=== PATIENT | male | born 1965 | race Caucasian/White ===

== ENCOUNTER 2022-07-02 15:45 | Emergency (ER) | payer SELFPAY ==
--- OUTSIDE RECORDS SUMMARY | 2022-07-02 15:54 | XMS REPORT | Continuity of Care Document ---
:1965 Author Organization [facility] t Address [address] [place] [address] [address] [place] [address] Care Team Providers Name Role Phone ANGY MANSFIELD Primary Care Physician Unavailable CHRISTIAN MONTES Attending Clinician Unavailable Stefany Hoyt Attending Clinician Unavailable SHAHANA MONTANO Attending Clinician Unavailable LEROY RAMACHANDRAN Attending Clinician Unavailable WILLIAM BERNSTEIN Attending Clinician Unavailable RENE LEPE Attending Clinician Unavailable GARETT JUAN Attending Clinician Unavailable CESIA ESCAMILLA Attending Clinician Unavailable BERTRAND BAUMANN Attending Clinician Unavailable LEWIS BERNSTEIN Attending Clinician Unavailable VLADIMIR GOODWIN Attending Clinician Unavailable FARIDA CASTILLO Attending Clinician Unavailable KAREN AGUILLON Attending Clinician Unavailable CARLO BRADSHAW Attending Clinician Unavailable ANGY MANSFIELD Attending Clinician Unavailable CARLI IBARRA Attending Clinician Unavailable BEINGNO MANSFIELD Attending Clinician Unavailable Jessica Anthony Attending Clinician Unavailable Jen Martinez Attending Clinician Unavailable LUCIEN PERDUE Attending Clinician Unavailable ANDREW MCCAULEY Attending Clinician Unavailable MASON KOHLI Attending Clinician Unavailable VIJI HARPER Attending Clinician Unavailable RICHARD FARMER Attending Clinician Unavailable KELBY FARRIS Attending Clinician Unavailable EGBULEFU, PEACE U Attending Clinician Unavailable ZACHARIAH MILTON Attending Clinician Unavailable PATIENCE BATEMAN Attending Clinician Unavailable ALBERT TODD Attending Clinician Unavailable Stefany Hoyt Admitting Clinician Unavailable EDITH SÁNCHEZ Admitting Clinician Unavailable LEWIS BERNSTEIN Admitting Clinician Unavailable Jessica Anthony Admitting Clinician Unavailable Referred, Self Admitting Clinician Unavailable Payers Payer Name Policy Type Policy Number Effective Date Expiration Date S ource Problems This patient has no known problems. Allergies, Adverse Reactions, Alerts Allergy Allergy Status Severity Reaction(s) Onset Inactive Treating Comm ents Source Name Type Date Date Clinician No Known DA Active U [facility] 06-25 [facility] 00:00: [address] Medications This patient has no known medications. Procedures Procedure Date / Time Performed Performing Clinician [facility] jama [id number] 2022-06-19 00:00:[address] [facility] Encounters Start End Encounter Admission Attending Care Care Encounter Source Date/Time Date/Time Type Type Clinicians Facility Department ID 2022-07-11 Inpatient SIMON [facility] [id number] [place] 00:00:00 [facility] 2022-06-18 Emergency [facility] [id number] K[place] - 13:56:59 [facility]22-[facility]-[address] [facility] [id number] H arr[place] 10:27:11 [facility] 2022-05-[address] [facility] [id number] H arr[place] 15:37:06 [facility] 2022-05-29 Emergency [facility] [id number] KATHY - 22:48:10 [facility] 2022-05-06 Emergency [facility] [id number] KATHY - 22:29:24 [facility] 2022-04-29 Emergency [facility] [id number] KATHY - 12:36:43 [facility] 2022-04-27 Emergency [facility] [id number] KATHY - 02:30:55 [facility] 2022-04-22 Emergency [facility] [id number] KATHY - 15:47:47 [facility] 2022-03-14 Emergency [facility] [id number] KATHY - 01:25:19 [facility] 2022-03-11 Emergency [facility] [id number] KATHY - 20:16:44 [facility] 2022-03-08 Emergency [facility] [id number] KATHY - 21:42:06 [facility] 2022-07-13 2022-07-[address] [facility] [id number] [place] 00:00:00 00:00:00 Health 2022-07-06 2022-07-[address] [facility] [id number] [place] 00:00:00 00:00:00 Health 2022-07-06 2022-07-[address] [facility] [id number] [place] 00:00:00 00:00:00 [facility] 2022-06-19 2022-06-30 Inpatient EM Lai, IBANWU INTE.02 [id number] [facility] 02:05:00 16:28:00 Stefany 24 [facility] 2022-06-29 2022-06-[address] [facility] [id number] [place] 00:00:00 00:00:00 [facility] 2022-06-22 2022-06-[address] [facility] [id number] [place] 00:00:00 00:00:00 [facility] 2022-06-18 2022-06-19 Emergency 1 [facility] [id number] [place] 13:18:00 00:56:00 Greg PARKER [facility] SHAHANA 2022-06-19 2022-06-[address] [facility] [id number] [place] 00:00:00 00:00:00 [facility] 2022-06-19 2022-06-19 [facility] [id number] [place] 00:00:00 00:00:00 PRIANKA [facility] 2022-06-18 2022-06-18 [facility] [id number] [place] 15:04:[facility]54[facility]22-06[facility] [facility] [id number] [place] 15:11:48 15:36:36 Health 2022-06-18 2022-06-[address] [facility] [id number] [place] 13:46:12 13:49:47 Health 2022-06-18 2022-06-[address] [facility] [id number] [place] 13:35:53 13:46:02 Health 2022-06-15 2022-06-15 Outpatient ROBERTH, [facility] [id number] [place] 10:53:05 15:43:00 [facility] 2022-06-13 2022-06-13 Inpatient DRAKE, [facility] [id number] [place] 08:05:12 09:51:[facility] 2022-06-11 Outpatient ANDI, [facility] [id number] [place] 00:00:00 00:00:00 [facility] 2022-06-08 2022-06-08 Outpatient IBIS, [facility] [id number] [place] 08:38:33 23:59:00 [facility] 2022-05-31 2022-06-05 Inpatient 1 [facility] [id number] [place] 19:37:00 19:02:[facility] 2022-06-[address] [facility] [id number] [place] 00:00:00 00:00:00 [facility] 2022-05-30 2022-05-31 [facility] [id number] [place] 02:09:00 17:30:00 LEWIS [facility] 2022-05-30 2022-05-[address] [facility] [id number] [place] 17:08:50 17:46:28 [facility] 2022-05-30 2022-05-30 [facility] [id number] [place] 00:00:00 00:00:00 [facility] 2022-05-24 2022-05-24 Outpatient FARIDA CASTILLO [facility] [id number] [place] 10:29:29 13:29:00 [facility] 2022-05-21 2022-05-[address] [facility] [id number] [place] 00:00:00 00:00:00 [facility] 2022-05-21 2022-05-21 Outpatient [facility] [id number] [place] 00:00:00 [facility] 2022[facility]05[facility]17 [facility] [id number] [place] 13:32:21 23:59:00 [facility] 2022-05-11 2022-05-11 [facility] [id number] [place] 09:51:06 13:46:00 SHAHAstria [facility] 2022-05-11 2022-05-11 Outpatient [facility] [id number] [place] 00:00:00 00:00:00 ANGY Garza [facility] 2022-05-07 2022-05-07 [facility] [id number] [place] 10:32:00 12:43:00 [facility] 2022-05-01 [facility] [id number] [place] 00:13:00 03:37:00 [facility] 2022-04-29 2022-04-29 Emergency [facility] [id number] [place] 14:59:00 16:14:00 [facility] 2022-04-27 2022-04-27 [facility] [id number] [facility] 00:02:00 12:30:00 Jessica 15 [facility] 2022-04-27 2022-04-27 Outpatient Michelle [facility] G00 [id number] [facility] 06:25:00 06:25:[address] 2022-04-27 2022-04-27 Outpatient [facility] [id number] [place] 00:00:00 00:00:00 ANGY Garza [facility] 2022-04-22 2022-04-22 Emergency [facility] [id number] [place] 17:04:00 17:22:00 [facility]-17 2022-04-17 Outpatient LEENAN, [facility] [id number] [place] 06:51:20 11:45:00 [facility] 2022-04-17 2022-04-17 [facility] [id number] [place] 00:00:00 00:00:[address] [facility] 2022-04-13 2022-04-13 Outpatient [facility] [id number] [place] 00:00:00 00:00:00 ANGY Raya [facility] 2022-03-30 2022-03-30 Outpatient DONAL, [facility] [id number] [place] 09:11:54 23:59:00 ANGY Raya [facility] 2022-03-20 2022-03-20 Outpatient DONAL, [facility] [id number] [place] 00:00:00 00:00:00 ANGY Raya [facility] 2022-03-16 2022-03-16 Outpatient ROBERTH, [facility] [id number] [place] 10:23:24 13:32:00 [facility] 2022-03-14 2022-03-14 Emergency [facility] [id number] [place] 03:21:00 06:46:00 [place] 2022-03-14 2022-03-14 Outpatient [facility] [id number] [place] 00:00:00 [facility]:00[facility] 2022-03-12 2022-03-[address] [facility] [id number] [place] 05:16:15 23:59:00 Health 2022-03-11 2022-03-12 Emergency [facility] [id number] [place] 21:52:00 04:44:[facility] 2022-[facility]-12 2022-03-[address] [facility] [id number] [place] 00:00:00 00:00:00 [facility] 2022-03-11 2022-03-11 [facility] [id number] [place] 23:33:52 23:52:08 [facility] 2022-03-08 2022-03-09 Emergency [facility] [id number] [place] 21:42:00 00:27:00 [facility] 2022-03-08 2022-03-[address] [facility] [id number] [place] 22:11:08 22:31:59 [facility] 2022-03-06 2022-03-06 Outpatient [facility] [id number] [place] 00:00:00 15:45:00 ANGY Garza [facility] 2022-03-06 2022-03-06 Emergency [facility] [id number] [place] 11:52:00 12:00:00 [facility] 2022-03-01 2022-03-01 Outpatient [facility] [id number] [place] 08:58:34 10:35:00 ANGY Garza [facility] 2022-02-27 2022-02-27 Emergency [facility] [id number] [place] 10:08:00 15:57:[facility] 2022-02-21 Outpatient 3 [facility] [id number] [place] 08:10:54 08:14:05 [facility] 2022-02-21 Outpatient EGBULUIS [facility] [id number] [place] 00:00:00 00:00:00 [facility] 2022-02-20 2022-02-[address] [facility] [id number] [place] 00:00:00 00:00:00 [facility] 2022-02-16 2022-02-16 Outpatient [facility] [id number] [place] [address] 10:22:02 11:34:55 ANGY Garza [facility] 2020-10-20 2020-10-[address] [facility] [id number] [place] 00:00:00 00:00:00 [facility] 2020-10-07 2020-10-[address] [facility] [id number] [place] 00:00:00 00:00:00 [facility] 2020-09-06 2020-09-06 [facility] [id number] [place] 12:40:23 13:48:28 ZACHARIAHMITCHEL [facility] 2020-09-06 2020-09-06 [facility] [id number] [place] 13:41:53 13:45:37 [facility] 2020-09-06 2020-09-06 [facility] [id number] [place] 00:00:00 00:00:00 [facility] 2020-07-26 2020-07-26 [facility] [id number] [place] 00:00:00 00:00:00 ZACHARIAHMITCHEL [facility] 2020-04-26 2020-04-26 [facility] [id number] [place] 07:58:41 23:59:00 [place] Results Test Description Test Time Test Comments Results Result Comments Source GLUCOSE BEDSIDE TESTING 2022-06-30 07:44:00 Test Item Value Reference Range Interpretation Comme nts GLUCOSE BEDSIDE TESTING (test code = GLUBED) 125 MG/DL 60-99 H - PARACENTESIS W [id number] 15:47:00 [facility] 1965 Sex: M Patient Name: CHARLES JUAREZ Unit No: [id number] EXAMS: CPT CODE: [id number] PARACENTESIS W IMAGE 97507 B2 Ultrasound-guided paracentesis CLINICAL INDICATION: Ascites MEDICATIONS: 10 mL subcutaneous Lidocaine 2% CLINICAL DATA SPECIALIST: Hamilton Dominique M.D. TECHNIQUE: Transverse real time images were obtained through the abdomen. B-mode grayscale, color Doppler, and spectral Doppler images are obtained. The risks and benefits of this procedure were discussed and informed written consent was obtained prior to performing the procedure. The abdomen was then prepped and draped in usual sterile fashion. Limited ultrasound of the abdomen was performed. Under ultrasound guidance, a 5 Ethiopian centesis needle was advanced into the peritoneal fluid collection and catheter advanced into the collection over the needle, and needlewas removed. The catheter was connected to Vacutainer bottles and 3000 mL of bloody fluid was removed. There were no immediate complications of the procedure. No significant blood loss. Patient tolerated procedure well. FINDINGS: Moderate volume free peritoneal fluid demonstrated on ultrasound. IMPRESSION: Successful ultrasound guided paracentesis. 3000 mL of fluid was removed. at 1547 Reported and signed by: Hamilton Dominique MD CC: Samuel Ibrahim MD; Stefany Hoyt MD Technologist: Ela Joyner RDMS() Transcrpt Date/Tm/Trnsp: 06/28/2022(1547) [email or web address] Orig Print D/T: S: 06/28/2022 (4640) [facility] NAME: CHARLES JUAREZ [id number] [place] PHYS: [place] [address] : 1965 AGE: 56 SEX: M LOC: Z.363 A PHONE #: [phone] EXAM DATE: 06/28/2022 STATUS: ADM IN FAX #: [phone] RADIOLOGY NO: PAGE 1 Signed ReportPROTHROMBIN [id number] 13:54:00 Test Item Value Reference Range Interpretation Comments PROTHROMBIN TIME 16.8 SECONDS 9.4-12.7 H PATIENT (test code = PTP) INTERNATIONAL NORMAL 1.5 0.86-1.14 H The INR is to be RATIO (test code = used only for INR) monitoring oral anticoagulantth erap y. INDICATION I NR VALUE ---- ---- ---- -------1. Prophylaxis, de ep venous thrombos is, including high risk surgery. 2.0 - 3.0 2. Prophylaxis, deep venous thrombosis, hip surgery, treatm ent for deep venous thrombosis or pulmonary prevention of systemic emboli sm in patients wit h valvular heart disease, atrial fibrillation, tissue heart va lve, or acute myocar dial infarction. 2.0 - 3.0 3. Manager Bak[employer] al prosthesis hear t valves, recurre nt systemic emboli sm. 3.0 - 4.5 [id number] 13:49:00 Test Item Value Reference Range Interpretation Comments AMMONIA (test code = AMM) 40 mcMOL/L 9-30 H - PARACENTESIS W [id number] 12:49:00 [facility] 1965 Sex: M Patient Name: CHARLES JUAREZ Unit No: [id number] EXAMS: CPT CODE: [id number] PARACENTESIS W IMAGE 11188 B2 Ultrasound-guided paracentesis CLINICAL INDICATION: Ascites MEDICATIONS: 10 mL subcutaneous Lidocaine 2% CLINICAL DATA SPECIALIST: Hamilton Dominique M.D. TECHNIQUE: Transverse real time images were obtained through the abdomen. B-mode grayscale, color Doppler, and spectral Doppler images are obtained. The risks and benefits of this procedure were discussed and informed written consent was obtained prior to performing the procedure. The abdomen was then prepped and draped in usual sterile fashion. Limited ultrasound of the abdomen was performed. Under ultrasound guidance, a 5 Ethiopian centesis needle was advanced into the peritoneal fluid collection and catheter advanced into the collection over the needle, and needle was removed. The catheter was connected to Vacutainer bottles and 5300 mL fluid was removed. There were no immediate complications of the procedure. No significant blood loss. Patient tolerated procedure well. FINDINGS: Large volume free peritoneal fluid demonstrated on ultrasound. IMPRESSION: Successful ultrasound guided paracentesis. 5300 mL of fluid was removed. at 1249 Reported and signed by: Hamilton Dominique MD CC: Samuel Ibrahim MD; Stefany Hoyt MD Technologist: Ela Joyner RDMS() Transcrpt Date/Tm/Trnsp: 06/26/2022 (7710) [email or web address] Orig Print D/T: S: 06/26/2022 (6878) [facility] NAME: CHARLES JUAREZ [address] [place] PHYS: Samuel Zuluaga MD [address] [address] : 1965 AGE: 56 SEX: M LOC:Z.363 A PHONE #: [phone] EXAM DATE: 06/26/2022 STATUS: ADM IN FAX #: [phone] RADIOLOGY NO: PAGE 1 Signed Report- XR CHEST [id number] 11:39:00 [facility] 1965 Sex: M Patient Name: CHARLES JUAREZ Unit No: [id number] EXAMS: CPT CODE: [id number] XR CHEST 1V 94684 B2 TIME OFSTUDY: 06/26/2022 9:35 AM REASON FOR EXAM: cough w/ green sputum COMPARISON: June 20 FINDINGS: AP view of the chest was obtained. Support devices: Interval removal of ET tube, enteric tube, and left arm PICC. Lungs: Normal lung volume. No mass, or consolidation. Normal pulmonary vascularity. Pleura: No pleural effusion or pneumothorax. Heart and Mediastinum: Normal cardiomediastinal silhouette and calcific atherosclerosis. Bones: Normal regional skeletal structures. IMPRESSION: 1. No acute cardiopulmonary process. at 1139 Reported and signed by: Hamilton Dominique MD CC: Samuel Irbahim MD; Stefany Hoyt MD Technologist: IVONE Joseph, RT(R) Transcrpt Date/Tm/Trnsp: 06/26/2022 (1139) [email or web address] Orig Print D/T: S: 06/26/2022 (1148) [facility] NAME: CHARLES JUAREZ [address] [place] PHYS: Samuel Charles MD [address] [place] [address] : 1965 AGE: 56 SEX: M LOC: Z.363 A PHONE #: [phone] EXAM DATE:06/26/2022 STATUS: ADM IN FAX #: [phone] RADIOLOGY NO: PAGE 1 Signed ReportGLUCOSE BEDSIDE [id number] 07:34:00 Test Item Value Reference Range Interpretation Comments GLUCOSE BEDSIDE TESTING (test code = 75 MG/DL 60-99 N GLUBED) COMPREHENSIVE METABOLIC [id number] 06:43:00 Test Item Value Reference Range Interpretation Comments SODIUM (test code 126 MMOL/L 137-145 L = NA) POTASSIUM (test 4.4 MMOL/L 3.5-5.1 N code = K) CHLORIDE (test 101 MMOL/L 98-107 N code = CL) CARBON DIOXIDE 20 MMOL/L 22-30 L (test code = CO2) ANION GAP (test 9 MMOL/L 14-24 L code = GAP) GLUCOSE (test 82 MG/DL 74-106 N code = GLU) BLOOD UREA 38 MG/DL 9-20 H NITROGEN (test code = BUN) GLOMERULAR > 60 The Glomerular Filtration FILTRATION RATE Rate is a ca lculated (test code = GFR) parameterb ased on serum Creatinine, pat ient age and sex. GFR values less than 60 mL/min/1.73 squ are meters are indicative ofChronic Kidney Disease. Values less than 15 mL/min/ 1.73square meters indicate Kidney failure. The ca lculation forGFR is based on the CKD-EPI (2020) calculation. This formulais race indifferent and is the recommended for surjit for GFRby the N[facility]erly [facility] for Adults.The GFR will not ca lculate if the sex is unkn own or if thepatient's ag e is <18 years. CREATININE (test 1.20 MG/DL 0.66-1.25 N code = CREAT) TOTAL PROTEIN 6.7 G/DL 6.2-7.6 N [facility] Clinical Diagnostic (test code = has made us vlad re of PROT) newinformation regarding the potential i nterference ofEltrombopag ( a bone marrow stimulan t used to treatthrombocyt onmenia and aplastic anemia ) with specific assays on the Vitros 5600 of which Total Protein is one of thoseassays per formed in our lab.Interfe rence testing perform ed at Ortho determined that Eltrombopag does interfere with Vitros Total Protein asfollowsEltrom bopag Interference fo r Vitros Product Total Protein:======= Eltrombopag Max Observed Av g. BiasConcentrati on Concentration Concentration== ==== 2.5 mg/dl 6.0 g/dl +0.41 +0.34 3.5 mg/dl 6.0 g /dl +0.50 +0.45 5 mg/dl 6 .0 g/dl +0.73 +0.65 2.5 mg/dl 8.0 g/dl +0.44 +0.4 1 3.5 mg/dl 8.0 g/dl +0.55 +0.52 5 mg/dl 8.0 g/dl +0.86 +0.77 ALBUMIN (test 3.0 G/DL 3.5-5.0 L code = ALB) CALCIUM (test 8.3 MG/DL 8.4-10.2 L code = CA) BILIRUBIN TOTAL 4.3 MG/DL 0.2-1.3 H Eltrombopag Interference (test code = for Vitros Prod uct TBil, BILT) BuBc: Assa y Eltrombopag [place]/ Max Observed Avg. B ias Concentration C oncentration Concentration== ====TBil 7mg/dl TBil/ 1. 2mg/dl +0.23mg.dl +0.2 0mg/dlBuBc 3.5mg/dl Bu/0.8 mg/dl +0.25mg/dl +0.2 4mg/dlBuBc 7 mg/dl Bu/14.2mg /dl +0.38mg/dl +0.2 5mg/dlBuBc 5mg/dl Bc/0mg/d l +0.25mg/dl +0.15mg/dlBuBc 3.5mg/dl Bc/2.8mg/dl +0. 25mg/dl +0.23mg/dl SGOT/AST (test 236 UNITS/L 17-59 H code = AST) SGPT/ALT (test 76 UNITS/L 0-49 H code = ALT) ALKALINE 138 UNITS/L 38-126 H PHOSPHATASE (test code = ALKP) GLUCOSE BEDSIDE [id number] 20:23:00 Test Item Value Reference Range Interpretation Comments GLUCOSE BEDSIDE TESTING (test code 132 MG/DL 60-99 H = GLUBED) CBC W/AUTO [id number] 09:51:00 Test Item Value Reference Range Interpretation Comments WHITE BLOOD CELL (test code = 5.6 K/MM3 3.8-9.8 N WBC) RED BLOOD CELL (test code = 3.33 M/MM3 3.95-5.67 L RBC) HEMOGLOBIN (test code = HGB) 10.1 G/DL 12.4-16.7 L HEMATOCRIT (test code = HCT) 29.4 % 35.9-49.5 L MEAN CELL VOLUME (test code = 88 fL 81.7-96.1 N MCV) MEAN CELL HGB (test code = MCH) 30.3 pg 27.6-33.2 N MEAN CELL HGB CONCETRATION 34.4 % 32.9-35.5 N (test code = MCHC) RED CELL DISTRIBUTION WIDTH 21.7 % 12.1-15.2 H (test code = RDW) PLATELET COUNT (test code = 65 K/MM3 129-368 L PLT) MEAN PLATELET VOLUME (test code 10.5 fl 7.4-10.4 H = MPV) NEUTROPHIL % (test code = NT%) 69.8 % 43-75 N IMMATURE GRANULOCYTE % (test 2.7 % 0.0-2.0 H code = IG%) LYMPHOCYTE % (test code = LY%) 9.4 % 14-44 L MONOCYTE % (test code = MO%) 12.2 % 4-13 N EOSINOPHIL % (test code = EO%) 5.2 % 0-6 N BASOPHIL % (test code = BA%) 0.7 % 0-2 N NUCLEATED RBC % (test code = 0.0 % 0-1.0 N NRBC%) NEUTROPHIL # (test code = NT#) 3.88 K/mm3 2.0-7.6 N IMMATURE GRANULOCYTE # (test 0.15 x10 3/uL 0-0.03 H code = IG#) LYMPHOCYTE # (test code = LY#) 0.52 K/mm3 1.0-3.8 L MONOCYTE # (test code = MO#) 0.68 K/mm3 0.1-0.8 N EOSINOPHIL # (test code = EO#) 0.29 K/mm3 0.0-0.2 H BASOPHIL # (test code = BA#) 0.04 K/mm3 0.0-0.2 N NUCLEATED RBC # (test code = 0.00 K/mm3 0.0-0.1 N NRBC#) DIFFERENTIAL [id number] 09:51:00 Test Item Value Reference Range Interpretation Comments RBC MORPHOLOGY REQUIRED (test code ABNORMAL = RBCM) PLATELET ESTIMATE (test code = DECREASED ADEQUATE PLTEST) PLATELET MORPHOLOGY (test code = NORMAL NORMAL PLTMORPH) POIKILOCYTOSIS (test code = POIK) FEW NONE ANISOCYTOSIS (test code = ANISO) MODERATE NONE TARGET CELLS (test code = TGT) FEW NONE [id number] 05:42:00 Test Item Value Reference Range Interpretation Comments AMMONIA (test code = AMM) 72 mcMOL/L 9-30 H COMPREHENSIVE METABOLIC [id number] 05:39:00 Test Item Value Reference Range Interpretation Comments SODIUM (test code 132 MMOL/L 137-145 L = NA) POTASSIUM (test 4.1 MMOL/L 3.5-5.1 N code = K) CHLORIDE (test 101 MMOL/L 98-107 N code = CL) CARBON DIOXIDE 26 MMOL/L 22-30 (test code = CO2) ANION GAP (test 9 MMOL/L 14-24 L code = GAP) GLUCOSE (test 85 MG/DL 74-106 code = GLU) BLOOD UREA 30 MG/DL 9-20 H NITROGEN (test code = BUN) GLOMERULAR > 60 The Glomerular Filtration FILTRATION RATE Rate is a ca lculated (test code = GFR) parameterb ased on serum Creatinine, pat ient age and sex. GFR values less than 60 mL/min/1.73 squ are meters are indicative ofChronic Kidney Disease. Values less than 15 mL/min/ 1.73square meters indicate Kidney failure. The ca lculation forGFR is based on the CKD-EPI (202) calculation. This formulais race indifferent and is the recommended for surjit for GFRby the [facility] Ad[facility].The GFR will not ca lculate if the sex is unkn own or if thepatient's ag e is <18 years. CREATININE (test 1.00 MG/DL 0.66-1.25 N code = CREAT) TOTAL PROTEIN 6.7 G/DL 6.2-7.6 N [facility] Clinical Diagnostic (test code = has made us vlad re of PROT) newinformation regarding the potential i nterference ofEltrombopag ( a bone marrow stimulan t used to treatthrombocyt onmenia and aplastic anemia ) with specific assays on the Vitros 5600 of which Total Protein is one of thoseassays per formed in our lab.Interfe rence testing perform ed at Ortho determined that Eltrombopag does interfere with Vitros Total Protein asfollowsEltrom bopag Interference fo r Vitros Product Total Protein:======= Eltrombopag Max Observed A vg. BiasConcentrati on Concentration Concentration== ==== 2.5 mg/dl 6.0 g/dl +0.41 +0.34 3.5 mg/dl 6.0 g /dl +0.50 +0.45 5 mg/dl 6 .0 g/dl +0.73 +0.65 2.5 mg/dl 8.0 g/dl +0.44 +0.4 1 3.5 mg/dl 8.0 g/dl +0.55 +0.52 5 mg/dl 8.0 g/dl +0.86 +0.77 ALBUMIN (test 3.0 G/DL 3.5-5.0 L code = ALB) CALCIUM (test 8.8 MG/DL 8.4-10.2 N code = CA) BILIRUBIN TOTAL 3.0 MG/DL 0.2-1.3 H Eltrombopag Interference (test code = for Vitros Prod uct TBil, BILT) BuBc: Assa y Eltrombopag [place]/ Max Observed Avg. B ias Concentration C oncentration Concentration== ====TBil 7mg/dl TBil/ 1. 2mg/dl +0.23mg.dl +0.2 0mg/dlBuBc 3.5mg/dl Bu/0. 8mg/dl +0.25mg/dl +0.2 4mg/dlBuBc 7 mg/dl Bu/14.2mg /dl +0.38mg/dl +0.2 5mg/dlBuBc 5mg/dl Bc/0mg/d l +0.25mg/dl +0.15mg/dlBuBc 3.5mg/dl Bc/2.8mg/dl +0. 25mg/dl +0.23mg/dl SGOT/AST (test 228 UNITS/L 17-59 H code = AST) SGPT/ALT (test 76 UNITS/L 0-49 H code = ALT) ALKALINE 128 UNITS/L 38-126 H PHOSPHATASE (test code = ALKP) CBC W/AUTO [id number] 08:37:00 Test Item Value Reference Range Interpretation Comments WHITE BLOOD CELL (test 4.1 K/MM3 3.8-9.8 N code = WBC) RED BLOOD CELL (test 2.91 M/MM3 3.95-5.67 L code = RBC) HEMOGLOBIN (test code 8.7 G/DL 12.4-16.7 L = HGB) HEMATOCRIT (test code 25.7 % 35.9-49.5 L = HCT) MEAN CELL VOLUME (test 88 fL 81.7-96.1 N code = MCV) MEAN CELL HGB (test 29.9 pg 27.6-33.2 N code = MCH) MEAN CELL HGB 33.9 % 32.9-35.5 N CONCETRATION (test code = MCHC) RED CELL DISTRIBUTION 21.6 % 12.1-15.2 H WIDTH (test code = RDW) PLATELET COUNT (test 48 K/MM3 129-368 LL CALLED TO AIRWIN V code = PLT) & READBACK ON 06/24/22 AT 064 1 BY Dyunco,Chest er MEAN PLATELET VOLUME 10.5 fl 7.4-10.4 H (test code = MPV) NEUTROPHIL % (test 64.8 % 43-75 N code = NT%) IMMATURE GRANULOCYTE % 2.9 % 0.0-2.0 H (test code = IG%) LYMPHOCYTE % (test 12.9 % 14-44 L code = LY%) MONOCYTE % (test code 13.1 % 4-13 H = MO%) EOSINOPHIL % (test 5.6 % 0-6 N code = EO%) BASOPHIL % (test code 0.7 % 0-2 N = BA%) NUCLEATED RBC % (test 0.0 % 0-1.0 N code = NRBC%) NEUTROPHIL # (test 2.66 K/mm3 2.0-7.6 N code = NT#) IMMATURE GRANULOCYTE # 0.12 x10 3/uL 0-0.03 H (test code = IG#) LYMPHOCYTE # (test 0.53 K/mm3 1.0-3.8 L code = LY#) MONOCYTE # (test code 0.54 K/mm3 0.1-0.8 N = MO#) EOSINOPHIL # (test 0.23 K/mm3 0.0-0.2 H code = EO#) BASOPHIL # (test code 0.03 K/mm3 0.0-0.2 N = BA#) NUCLEATED RBC # (test 0.00 K/mm3 0.0-0.1 N code = NRBC#) DIFFERENTIAL [id number] 08:37:00 Test Item Value Reference Range Interpretation Comments RBC MORPHOLOGY REQUIRED ABNORMAL (test code = RBCM) PLATELET ESTIMATE (test code MARKED DECREASED ADEQUATE = PLTEST) PLATELET MORPHOLOGY (test NORMAL NORMAL code = PLTMORPH) POIKILOCYTOSIS (test code = MODERATE NONE POIK) ANISOCYTOSIS (test code = MODERATE NONE ANISO) MACROCYTOSIS (test code = MODERATE NONE MACR) TARGET CELLS (test code = FEW NONE TGT) ACANTHOCYTES (test code = FEW NONE ACAN) COMPREHENSIVE METABOLIC [id number] 06:30:00 Test Item Value Reference Range Interpretation Comments SODIUM (test code 135 MMOL/L 137-145 L = NA) POTASSIUM (test 3.7 MMOL/L 3.5-5.1 N code = K) CHLORIDE (test 107 MMOL/L 98-107 N code = CL) CARBON DIOXIDE 23 MMOL/L 22-30 N (test code = CO2) ANION GAP (test 9 MMOL/L 14-24 L code = GAP) GLUCOSE (test 103 MG/DL 74-106 N code = GLU) BLOOD UREA 31 MG/DL 9-20 H NITROGEN (test code = BUN) GLOMERULAR > 60 The Glomerular Filtration FILTRATION RATE Rate is a ca lculated (test code = GFR) parameterb ased on serum Creatinine, pat ient age and sex. GFR values less than 60 mL/min/1.73 squ are meters are indicative ofChronic Kidney Disease. Values less than 15 mL/min/ 1.73square meters indicate Kidney failure. The ca lculation forGFR is based on the CKD-EPI (2020) calculation. This formulais race indifferent and is the recommended for surjit for GFRby the [facility] for Adults.The GFR will not ca lculate if the sex is unkn own or if thepatient's ag e is <18 years. CREATININE (test 1.00 MG/DL 0.66-1.25 N code = CREAT) TOTAL PROTEIN 6.3 G/DL 6.2-7.6 N [facility] Clinical Diagnostic (test code = has made us vlad re of PROT) newinformation regarding the potential i nterference ofEltrombopag ( a bone marrow stimulan t used to treatthrombocyt onmenia and aplastic anemia ) with specific assays on the Vitros 5600 of which Total Protein is one of thoseassays per formed in our lab.Interfe rence testing perform ed at Ortho determined that Eltrombopag does interfere with Vitros Total Protein asfollowsEltrom bopag Interference fo r Vitros Product Total Protein:======= Eltrombopag Max Observed Av g. BiasConcentrati on Concentration Concentration== ==== 2.5 mg/dl 6.0 g/dl +0.41 +0.34 3.5 mg/dl 6.0 g /dl +0.50 +0.45 5 mg/dl 6 .0 g/dl +0.73 +0.65 2.5 mg/dl 8.0 g/dl +0.44 +0. 41 3.5 mg/dl 8.0 g/dl +0.55 +0.52 5 mg/dl 8.0 g/dl +0.86 +0.77 ALBUMIN (test 3.0 G/DL 3.5-5.0 L code = ALB) CALCIUM (test 8.9 MG/DL 8.4-10.2 N code = CA) BILIRUBIN TOTAL 3.5 MG/DL 0.2-1.3 H Eltrombopag Interference (test code = for Vitros Prod uct TBil, BILT) BuBc: Assa y Eltrombopag [place]/ Max Observed Avg. B ias Concentration C oncentration Concentration== ====TBil 7mg/dl TBil/ 1. 2mg/dl +0.23mg.dl +0.2 0mg/dlBuBc 3.5mg/dl Bu/0.8 mg/dl +0.25mg/dl +0.2 4mg/dlBuBc 7 mg/dl Bu/14.2mg /dl +0.38mg/dl +0.2 5mg/dlBuBc 5mg/dl Bc/0mg/d l +0.25mg/dl +0.15mg/dlBuBc 3.5mg/dl Bc/2.8mg/dl +0. 25mg/dl +0.23mg/dl SGOT/AST (test 199 UNITS/L 17-59 H code = AST) SGPT/ALT (test 72 UNITS/L 0-49 H code = ALT) ALKALINE 115 UNITS/L 38-126 N PHOSPHATASE (test code = ALKP) [id number] 06:26:00 Test Item Value Reference Range Interpretation Comments AMMONIA (test code = AMM) 44 mcMOL/L 9-30 H CBC W/AUTO [id number] 10:13:00 Test Item Value Reference Range Interpretation Comments WHITE BLOOD CELL (test code = 4.2 K/MM3 3.8-9.8 N WBC) RED BLOOD CELL (test code = 3.00 M/MM3 3.95-5.67 L RBC) HEMOGLOBIN (test code = HGB) 8.9 G/DL 12.4-16.7 L HEMATOCRIT (test code = HCT) 26.4 % 35.9-49.5 L MEAN CELL VOLUME (test code = 88 fL 81.7-96.1 N MCV) MEAN CELL HGB (test code = MCH) 29.7 pg 27.6-33.2 N MEAN CELL HGB CONCETRATION 33.7 % 32.9-35.5 N (test code = MCHC) RED CELL DISTRIBUTION WIDTH 21.4 % 12.1-15.2 H (test code = RDW) PLATELET COUNT (test code = 52 K/MM3 129-368 L PLT) MEAN PLATELET VOLUME (test code 10.8 fl 7.4-10.4 H = MPV) NEUTROPHIL % (test code = NT%) 70.5 % 43-75 N IMMATURE GRANULOCYTE % (test 2.1 % 0.0-2.0 H code = IG%) LYMPHOCYTE % (test code = LY%) 11.8 % 14-44 L MONOCYTE % (test code = MO%) 11.8 % 4-13 N EOSINOPHIL % (test code = EO%) 3.3 % 0-6 N BASOPHIL % (test code = BA%) 0.5 % 0-2 N NUCLEATED RBC % (test code = 0.0 % 0-1.0 N NRBC%) NEUTROPHIL # (test code = NT#) 2.98 K/mm3 2.0-7.6 N IMMATURE GRANULOCYTE # (test 0.09 x10 3/uL 0-0.03 H code = IG#) LYMPHOCYTE # (test code = LY#) 0.50 K/mm3 1.0-3.8 L MONOCYTE # (test code = MO#) 0.50 K/mm3 0.1-0.8 N EOSINOPHIL # (test code = EO#) 0.14 K/mm3 0.0-0.2 N BASOPHIL # (test code = BA#) 0.02 K/mm3 0.0-0.2 N NUCLEATED RBC # (test code = 0.00 K/mm3 0.0-0.1 N NRBC#) DIFFERENTIAL [id number] 10:13:00 Test Item Value Reference Range Interpretation Comments RBC MORPHOLOGY REQUIRED (test code ABNORMAL = RBCM) PLATELET ESTIMATE (test code = DECREASED ADEQUATE PLTEST) PLATELET MORPHOLOGY (test code = NORMAL NORMAL PLTMORPH) ANISOCYTOSIS (test code = ANISO) MODERATE NONE COMPREHENSIVE METABOLIC [id number] 07:48:00 Test Item Value Reference Range Interpretation Comments SODIUM (test code 141 MMOL/L 137-145 N = NA) POTASSIUM (test 4.1 MMOL/L 3.5-5.1 N code = K) CHLORIDE (test 113 MMOL/L 98-107 H code = CL) CARBON DIOXIDE 22 MMOL/L 22-30 N (test code = CO2) GLUCOSE (test 112 MG/DL 74-106 H code = GLU) BLOOD UREA 35 MG/DL 9-20 H NITROGEN (test code = BUN) GLOMERULAR > 60 The Glomerular Filtration FILTRATION RATE Rate is a ca lculated (test code = GFR) parameterb ased on serum Creatinine, pat ient age and sex. GFR values less than 60 mL/min/1.73 squ are meters are indicative ofChronic Kidney Disease. Values less than 15 mL/min/ 1.73square meters indicate Kidney failure. The ca lculation forGFR is based on the CKD-EPI (202) calculation. This formulais race indifferent and is the recommended for surjit for GFRby the [facility] for Ad[facility].The GFR will not ca lculate if the sex is unkn own or if thepatient's ag e is <18 years. CREATININE (test 1.10 MG/DL 0.66-1.25 N code = CREAT) TOTAL PROTEIN 6.6 G/DL 6.2-7.6 N [facility]o Clinical Diagnostic (test code = has made us vlad re of PROT) newinformation regarding the potential i nterference ofEltrombopag ( a bone marrow stimulan t used to treatthrombocyt onmenia and aplastic anemia ) with specific assays on the Spiracurs 5600 of which Total Protein is one of thoseassays per formed in our lab.Interfe rence testing perform ed at Ortho determined that Eltrombopag does interfere with Vitros Total Protein asfollowsEltrom bopag Interference fo r Vitros Product Total Protein:======= Eltrombopag Max Observed Av g. BiasConcentrati on Concentration Concentration== ==== 2.5 mg/dl 6.0 g/dl +0.41 +0.34 3.5 mg/dl 6.0 g /dl +0.50 +0.45 5 mg/dl 6 .0 g/dl +0.73 +0.65 2.5 mg/dl 8.0 g/dl +0.44 +0.4 1 3.5 mg/dl 8.0 g/dl +0.55 +0.52 5 mg/dl 8.0 g/dl +0.86 +0.77 ALBUMIN (test 3.2 G/DL 3.5-5.0 L code = ALB) CALCIUM (test 9.3 MG/DL 8.4-10.2 N code = CA) BILIRUBIN TOTAL 4.5 MG/DL 0.2-1.3 H Eltrombopag Interference (test code = for Vitros Prod uct TBil, BILT) BuBc: Assa y Eltrombopag [place]/ Max Observed Avg. B ias Concentration C oncentration Concentration== ====TBil 7mg/dl TBil/ 1. 2mg/dl +0.23mg.dl +0.2 0mg/dlBuBc 3.5mg/dl Bu/0.8 mg/dl +0.25mg/dl +0.2 4mg/dlBuBc 7 mg/dl Bu/14.2mg /dl +0.38mg/dl +0.2 5mg/dlBuBc 5mg/dl Bc/0mg/d l +0.25mg/dl +0.15mg/dlBuBc 3.5mg/dl Bc/2.8mg/dl +0. 25mg/dl +0.23mg/dl SGOT/AST (test 210 UNITS/L 17-59 H code = AST) SGPT/ALT (test 75 UNITS/L 0-49 H code = ALT) ALKALINE 118 UNITS/L 38-126 N PHOSPHATASE (test code = ALKP) [id number] 07:48:00 Test Item Value Reference Range Interpretation Comments PHOSPHOROUS (test code = PHOS) 2.4 MG/DL 2.5-4.5 L [id number] 07:48:00 Test Item Value Reference Range Interpretation Comments MAGNESIUM (test code = MAG) 2.1 MG/DL 1.6-2.3 N - PARACENTESIS W [id number] 16:00:00 [facility] 1965 Sex: M Patient Name: CHARLES JUAREZ Unit No: [id number] EXAMS: CPT CODE: [id number] PARACENTESIS W IMAGE [id number] EXAMINATION: IMAGE-GUIDED PARACENTESIS. LOCATION: B2. HISTORY: Ascites. SEDATION: The patient did notrequire conscious sedation for the procedure. ANTIBIOTICS: None. Not indicated. CONTRAST: None. TECHNIQUE: The risks, benefits, and alternatives were discussed and informed consent was obtained. Prior to beginning the procedure, [place] Protocol was used to confirm the patient's identity and plannedprocedure. Sterile barriers including cap, mask, hand hygiene, sterile gloves, sterile drape and cutaneous antisepsis were used. The patient's abdomen was examined with ultrasound and a suitable pocketof ascitic fluid in the right lower quadrant was identified. The overlying skin was anesthetized with lidocaine. Using real-time ultrasound guidance, a One-Step needle was advanced into the ascitic fluid. Approximately 3,100 mL of serosanguineous fluid was drained. Samples were sent for lab analysis. At the conclusion of the procedure, the catheter was removed and a sterile dressing applied to the site. ESTIMATED BLOOD LOSS: Less than 30 milliliters. COMPLICATIONS: None. DISCHARGED TO: Performed atbedside in ICU. FINDINGS: Ultrasound demonstrated a moderate amount of ascitic fluid. IMPRESSION: Suc cessful image-guided paracentesis. complaint operator: Zayda Nicholas PA-C. at 1600 Reported and signed by: Tala Welch MD [facility] NAME: CHARLES JUAREZ [id number] PHYS: Samuel Charles MD [address] [place] [address] : 1965 AGE: 56 SEX: M LOC: Z.I14 A PHONE #: [phone] EXAM DATE: 06/22/2022 STATUS: ADM IN FAX #: [phone] RADIOLOGY NO: PAGE 1 Signed Report (CONTINUED) Patient Name: CHARLES JUAREZ Unit No: [id number] EXAMS: CPT CODE: [id number] PARACENTESIS W IMAGE [id number] (Continued) CC: Samuel Ibrahim MD; Ethan Cerda MD Technologist: Rehana Becker (RDMS AB OB) Transcrpt Date/Tm/Trnsp: 06/22/2022 (1600) [id number] Orig Print D/T: S: 06/22/2022 (1603) [facility] NAME: CHARLES JUAREZ [id number] [address] PHYS: Samuel Charles MD [address] [place] [address] : 1965 AGE: 56 SEX: MACCT NO: [id number] LOC: Z.I14 A PHONE #: [phone] EXAM DATE: 06/22/2022 STATUS: ADM IN FAX #: [phone] RADIOLOGY NO: PAGE 2 Signed ReportHEPARIN INDUCED [id number] 13:39:00 Test Item Value Reference Range Interpretation Comments HEPARIN INDUCED NEGATIVE See_Comment The HIT (PF4 ) test is a AB (test code = qualitative, fully automated HITAB) lateximmunoassa y that detects, IgG, I gM and IgA associatedantib odies and is used as a prima ry screening assay for thede tection of Platelet Factor 4 Heparin-Depende nt Antibodies.Posi tive or negative is the final interpreted res ult. Thepositive or negative result should b e used with otherinformatio n, including the clinical co ntext, in forming adiagno sis such as the 4T score an d the 2013 [employer] guidelines. NEG ATIVE results indicate the ab sence of Platelet Factor 4Heparin-Depend ent Antibodies to IgG, IgM or IgA. A negativeresult for anti-PF4 heparin antibod ies can support theclin ical decision to exclude the presence of HIT, andtherefo re continue heparin treatme nt. POSITIVE results indicat e the presence of Platelet Fac tor 4Heparin-Depend ent Antibodies to IgG, IgM or IgA. Although apositive resul t obtained using this assa y may indicate thepresence of heparin-associa jose manuel antibodies, a p ositive resultDOES NOT CONFIRM the diagnosis of HI T. Confirmation wi th afunctional test is recomme nded. A clinical reasse smentsupported by laboratory d benjie should be performed befor econfirmation or exclusion of the diagnosis. Some patientsmay have naturally occurring antibodies to P F4. If clinically nithin cated, a repeat study is recommended in2-3 days afte r the patient has been off he naomy for at least4 hours. [ Automated message] The sy stem which generated this result transmitted ref erence range: (). The referen ce range was not used to int erpret this result as janelle l/abnormal. CBC W/AUTO [id number] 12:58:00 Test Item Value Reference Range Interpretation Comments WHITE BLOOD CELL (test code = 5.9 K/MM3 3.8-9.8 N WBC) RED BLOOD CELL (test code = 3.10 M/MM3 3.95-5.67 L RBC) HEMOGLOBIN (test code = HGB) 9.3 G/DL 12.4-16.7 L HEMATOCRIT (test code = HCT) 26.8 % 35.9-49.5 L MEAN CELL VOLUME (test code = 87 fL 81.7-96.1 N MCV) MEAN CELL HGB (test code = MCH) 30.0 pg 27.6-33.2 N MEAN CELL HGB CONCETRATION 34.7 % 32.9-35.5 N (test code = MCHC) RED CELL DISTRIBUTION WIDTH 21.0 % 12.1-15.2 H (test code = RDW) PLATELET COUNT (test code = 61 K/MM3 129-368 L PLT) MEAN PLATELET VOLUME (test code 10.1 fl 7.4-10.4 N = MPV) NEUTROPHIL % (test code = NT%) 80.8 % 43-75 H IMMATURE GRANULOCYTE % (test 1.0 % 0.0-2.0 N code = IG%) LYMPHOCYTE % (test code = LY%) 7.1 % 14-44 L MONOCYTE % (test code = MO%) 9.6 % 4-13 N EOSINOPHIL % (test code = EO%) 1.0 % 0-6 N BASOPHIL % (test code = BA%) 0.5 % 0-2 N NUCLEATED RBC % (test code = 0.0 % 0-1.0 N NRBC%) NEUTROPHIL # (test code = NT#) 4.78 K/mm3 2.0-7.6 N IMMATURE GRANULOCYTE # (test 0.06 x10 3/uL 0-0.03 H code = IG#) LYMPHOCYTE # (test code = LY#) 0.42 K/mm3 1.0-3.8 L MONOCYTE # (test code = MO#) 0.57 K/mm3 0.1-0.8 N EOSINOPHIL # (test code = EO#) 0.06 K/mm3 0.0-0.2 N BASOPHIL # (test code = BA#) 0.03 K/mm3 0.0-0.2 N NUCLEATED RBC # (test code = 0.00 K/mm3 0.0-0.1 N NRBC#) DIFFERENTIAL [id number] 12:58:00 Test Item Value Reference Range Interpretation Comments RBC MORPHOLOGY REQUIRED (test code ABNORMAL = RBCM) PLATELET ESTIMATE (test code = DECREASED ADEQUATE PLTEST) PLATELET MORPHOLOGY (test code = NORMAL NORMAL PLTMORPH) ANISOCYTOSIS (test code = ANISO) MODERATE NONE GLUCOSE BEDSIDE [id number] 11:32:00 Test Item Value Reference Range Interpretation Comments GLUCOSE BEDSIDE TESTING (test code = 92 MG/DL 60-99 N GLUBED) COMPREHENSIVE METABOLIC [id number] 07:18:00 Test Item Value Reference Range Interpretation Comments SODIUM (test code 140 MMOL/L 137-145 N = NA) POTASSIUM (test 4.5 MMOL/L 3.5-5.1 N code = K) CHLORIDE (test 111 MMOL/L 98-107 H code = CL) CARBON DIOXIDE 23 MMOL/L 22-30 N (test code = CO2) GLUCOSE (test 91 MG/DL 74-106 N code = GLU) BLOOD UREA 34 MG/DL 9-20 H NITROGEN (test code = BUN) GLOMERULAR > 60 The Glomerular Filtration FILTRATION RATE Rate is a ca lculated (test code = GFR) parameterb ased on serum Creatinine, pat ient age and sex. GFR values less than 60 mL/min/1.73 squ are meters are indicative ofChronic Kidney Disease. Values less than 15 mL/min/ 1.73square meters indicate Kidney failure. The ca lculation forGFR is based on the CKD-EPI (202) calculation. This formulais race indifferent and is the recommended for surjit for GFRby the [facility] Foundation for Adults.The GFR will not ca lculate if the sex is unkn own or if thepatient's ag e is <18 years. CREATININE (test 1.20 MG/DL 0.66-1.25 N code = CREAT) TOTAL PROTEIN 6.5 G/DL 6.2-7.6 N Ortho Clinical Diagnostic (test code = has made us vlad re of PROT) newinformation regarding the potential i nterference ofEltrombopag ( a bone marrow stimulan t used to treatthrombocyt onmenia and aplastic anemia ) with specific assays on the Vitros 5600 of which Total Protein is one of thoseassays per formed in our lab.Interfe rence testing perform ed at Ortho determined that Eltrombopag does interfere with Vitros Total Protein asfollowsEltrom bopag Interference fo r Vitros Product Total Protein:======= Eltrombopag Max Observed Av g. BiasConcentrati on Concentration Concentration== ==== 2.5 mg/dl 6.0 g/dl +0.41 +0.34 3.5 mg/dl 6.0 g /dl +0.50 +0.45 5 mg/dl 6 .0 g/dl +0.73 +0.65 2. 5 mg/dl 8.0 g/dl +0.44 +0.4 1 3.5 mg/dl 8.0 g/dl +0.55 +0.52 5 mg/dl 8.0 g/dl +0.86 +0.77 ALBUMIN (test 3.1 G/DL 3.5-5.0 L code = ALB) CALCIUM (test 9.4 MG/DL 8.4-10.2 N code = CA) BILIRUBIN TOTAL 5.7 MG/DL 0.2-1.3 H Eltrombopag Interference (test code = for Vitros Prod uct TBil, BILT) BuBc: Assa y Eltrombopag [place]/ Max Observed Avg. B ias Concentration C oncentration Concentration== ====TBil 7mg/dl TBil/ 1. 2mg/dl +0.23mg.dl +0.2 0mg/dlBuBc 3.5mg/dl Bu/0.8 mg/dl +0.25mg/dl +0.2 4mg/dlBuBc 7 mg/dl Bu/14.2mg /dl +0.38mg/dl +0.2 5mg/dlBuBc 5mg/dl Bc/0mg/d l +0.25mg/dl +0.15mg/dlBuBc 3.5mg/dl Bc/2.8mg/dl +0. 25mg/dl +0.23mg/dl SGOT/AST (test 226 UNITS/L 17-59 H code = AST) SGPT/ALT (test 79 UNITS/L 0-49 H code = ALT) ALKALINE 117 UNITS/L 38-126 N PHOSPHATASE (test code = ALKP) [id number] 07:18:00 Test Item Value Reference Range Interpretation Comments MAGNESIUM (test code = MAG) 2.0 MG/DL 1.6-2.3 N HGB [id number] 05:56:00 Test Item Value Reference Range Interpretation Comments HEMOGLOBIN (test code = HGB) 9.3 G/DL 12.4-16.7 L HEMATOCRIT (test code = HCT) 26.7 % 35.9-49.5 L GLUCOSE BEDSIDE [id number] 20:00:00 Test Item Value Reference Range Interpretation Comments GLUCOSE BEDSIDE TESTING 107 MG/DL 60-99 H Noti fied Nurse~ (test code = GLUBED) CYTOLOGY NON [id number] 16:59:00 Test Item Value Reference Range Interpretation Comments CYTOLOGY NON RELIABILITY TECHNOLOGIST (test code = CR) R UN DATE: 06/27/22 [facility] PAGE 1 RUN TIME: 1129 Specimen Inquiry RUN USER: INTERFACE P ATIENT: CHARLES JUAREZ LOC: JENNIFERRolan U #: [id number] AGE/SX: 56/M ROOM: [facility] RE06/19/22REG DR: Stefany Hoyt MD : 65 BED: A DIS: STATUS: ADM IN TLOC: SPEC #: [id number] RECD: 06/19/22 STATUS: RICARDO BABIN #: [id number] RACHEL: 06/19/22- [facility] DR: Ethan Cerda MD ENTERED: 06/19/22-153 SP TYPE: CYTO NGYN OTHR DR: No Primary or Family Physician Self Referred Rosenda Foley MD R2 Yoselin eBaver MD R3 Samuel Ibrahim MD R1 Leif Wilson Poyan MDORDERED: [id number], 86663, ANATOMIC SPEC, SPECIMEN TRACK COPIES TO: No Primary or Family Physician Self Referred Rosenda Foley MD R2 [address] [place] [address] Yoselin Beaver MD R3 [address] [place] [address] Samuel Ibrahim MD R1 [address] [place] [address] Leif Wilson DO [address] [place] [address] [email or web address] Tala Welch MD [address] [facility] [address] [place] [address] [place] [address] [facility] [address] [place] [address] PROCEDURES: 76000 (06/21/22-1299) 61266 (06/21/22) CONTINUED ON NEXT PAGE R UN DATE: 06/27/22 [facility] PAGE 2 RUN TIME: 1129 Specimen Inquiry RUN USER: INTERFACE S [facility] #: 23:SCOTT:[id number] PATIENT: CHARLES JUAREZ #[id number] (Continued) SPECIMEN TRACK (06/19/22) TISSUES: A. PARACENTESIS FLUID - PARACENTESIS ADDENDUM FINDINGS Addendum #1 Entered: 06/27/22 The additional requested cell block is also insufficient for further analysis. No change in original diagnosis. Addendum Signed SIGNATURE ON FILE Santiago Burden 06/27/22 1129 FINAL DIAGNOSIS Peritoneal fluid, paracentesis, cytology and cell block:- RARE ATYPICAL CELLS PRESENT, suspicious- Mesothelial cells, mild, some reactive- Lymphocytes, small and mature, very rare- Macrophages, very rare- Proteinaceous/bloody background Comment: The current cell block is insufficient for further immunohistochemical analysis.A new cell block is requested to obtain more cells for evaluation; an addendum report willfollow. Suggest clinical and radiologic correlation. GROSS DESCRIPTION Paracenteses. It consists of 1300 cc of bloody cloudy fluid. It is submitted forcytologic preparation. Thin prep: 1 Cell block: 1 Technical tissue processing and slide [facility] [address] , [place] [address] Unless gross only, the diagnosis is based upon microscopic examination. Immunohistochemistry: This test was developed and its performance characteristicsdetermined by this laboratory. It has not been approved nor does it need approval by the USFDA. Appropriate positive and negative controls are reviewed and judged to be acceptable. This laboratory is certified under the Clinical Laboratory Improvement Amendments (CLIA-88)as qualified to perform high complexity clinical laboratory testing. CONTINUED ON NEXT PAGE R UN DATE: 06/27/22 [place] - LAB PAGE 3 RUN TIME: 1129 Specimen Inquiry RUN USER: INTERFACE S [facility] #: 23:SCOTT:[id number] PATIENT: CHARLES JUAREZ #[id number] (Continued) MICROSCOPIC DESCRIPTION Microscopic examination is performed on all specimens and the findings are incorporatedinto the final diagnosis. Please see diagnosis for the findings. CLINICAL INFORMATION Ascites; history of cirrhosis and possible hepatocarcinoma. Signed SIGNATURE ON Santiago Tian 06/21/22 1659 END OF REPORT - CT ABD PELVIS W/O [id number] 15:50:00 [facility] 1965 Sex: M Patient Name: CHARLES JUAREZ Unit No: [id number] EXAMS: CPT CODE: [id number] CT ABD PELVIS W/O CONT 49814 EXAMINATION: - CT ABD PELVIS W/O CONT. LOCATION: B2. HISTORY: r/o abdominal bleed. COMPARISON: CT abdomen and pelvis dated 04/27/2022. TECHNIQUE: CT abdomen and pelvis was performed without the use of IV contrast. Sagittal and coronal reconstructed images were available for review. This exam was performed according to our departmental dose-optimization program, which includes automated exposure control, adjustment of the mA and/or kV according to patient size, and/or use of iterative reconstruction technique. Unless otherwise specified, incidental findings do not require dedicated imaging follow-up. FINDINGS: Lower chest: Mild dependent subsegmental atelectasis is seen in bilateral lower lobes. Heart size is normal. Circumferential distal esophageal wall thickening is seen. Abdomen and pelvis: There is nodularity of the liver contour. Multiple hypodense lesions are seen in the liver measuring up to 3.5 cm, increased in size since prior exam (previously measuring 1.6 cm). Focal hyperdense material is seen adjacent to one of the lesions at the hepatic dome and is likely secondary to prior locoregional therapy. There is recanalization of the umbilical vein. Small gastroesophageal varices are present. Layering sludge and stones are seen in the gallbladder. The spleen is enlarged, measuring 18.5cm in length. The noncontrast appearance of the pancreas, bilateral adrenal glands, and bilateral kidneys is within normal limits. The urinary bladder is decompressed by Haddad catheter and contains air. There is no adenopathy. Large amount of ascites is seen with small amount of layering blood products in the pelvis. There is no evidence of bowel obstruction. The appendix is normal in size and contains air. There is no pneumoperitoneum. Severe degenerative changes are seen at L5/S1. No acute osseous abnormality is identified. IMPRESSION: Large amount ascites with small amount of layering blood products in the pelvis. Imaging findings of cirrhosis and portal hypertension with splenomegaly and small gastroesophageal varices. [facility] NAME: CHARLES JUAREZ [address] [place] PHYS: Samuel Charles MD [address] [address] : 1965 AGE: 56 SEX: M LOC: Z.I14 A PHONE#: [phone] EXAM DATE: 06/21/2022 STATUS: ADM IN FAX #: [phone] RAD #: D/C DT PAGE 1 Signed Report (CONTINUED) Patient Name: CHARLES JUAREZ Unit No: [id number] EXAMS: CPT CODE: [id number] CT ABD PELVIS W/O CONT 99102 (Continued) Multiple hypodense lesions throughout the liver measuring upto 3.5 cm, increased in size since prior exam and likely secondary to multifocal HCC. Cholelithiasis. Other findings as described. at 1550 Reported and signed by: Tala Welch MD CC: Samuel Ibrahim MD; Ethan Cerda MD Technologist: Lilia (RT); Dorothy Aly, CTDI: DLP: Trnscrpt: 06/21/2022 (1550) EderPR7 [facility] NAME: LONA JUAREZ [id number] [address] PHYS: Samuel Charles MD [address] [place] [id number] : 1965 AGE: 56 SEX: M LOC: Z.I14 A PHONE #: [phone] EXAM DATE: 06/21/2022 STATUS: ADM IN FAX #: [phone] RAD #: D/C DT PAGE 2 Signed Report Patient Name: CHARLES JUAREZ Unit No: [id number] EXAMS: CPT CODE: [id number] CT ABD PELVIS W/O CONT 03072 (Continued) Orig Print D/T: S: 06/21/2022 (1554) [facility] NAME: CHARLES JUAREZ [address] [address] PHYS: Samuel Charles MD [address] [place] [id number] : 1965 AGE: 56 SEX: M LOC: Z.I14 A PHONE #: [phone] EXAM DATE: 06/21/2022 STATUS: ADM IN FAX #: [phone] RAD #: D/C DT PAGE 3 Signed [id number] 07:23:00 Test Item Value Reference Range Interpretation Comments AMMONIA (test code = AMM) 32 mcMOL/L 9-30 H "TO BE COLLECTED BY NURSE"NOTIFIED RN: BRYON COLON 06/21/22 AT 0631 BY Aguilar Teresa to Obstetrician And Gynaecologist: Please add to blood already in the lab if possibleSpecimen comments: please add to blood already in the lab if possibleCBC W/O [id number] 06:43:00 Test Item Value Reference Range Interpretation Comments WHITE BLOOD CELL (test 2.8 K/MM3 3.8-9.8 L code = WBC) RED BLOOD CELL (test 2.35 M/MM3 3.95-5.67 L code = RBC) HEMOGLOBIN (test code 7.0 G/DL 12.4-16.7 L = HGB) HEMATOCRIT (test code 20.5 % 35.9-49.5 L = HCT) MEAN CELL VOLUME (test 87 fL 81.7-96.1 N code = MCV) MEAN CELL HGB (test 29.8 pg 27.6-33.2 N code = MCH) MEAN CELL HGB 34.1 % 32.9-35.5 N CONCETRATION (test code = MCHC) RED CELL DISTRIBUTION 21.8 % 12.1-15.2 H WIDTH (test code = RDW) PLATELET COUNT (test 46 K/MM3 129-368 LL CALLED TO BRYON Trujillo code = PLT) & READBACK ON 06/21/22 AT 043 7 BY Boris Naik NEUTROPHIL # (test 2.11 K/mm3 2.0-7.6 N code = NT#) IMMATURE GRANULOCYTE # 0.02 x10 3/uL 0-0.03 N (test code = IG#) LYMPHOCYTE # (test 0.32 K/mm3 1.0-3.8 L code = LY#) MONOCYTE # (test code 0.26 K/mm3 0.1-0.8 N = MO#) EOSINOPHIL # (test 0.08 K/mm3 0.0-0.2 N code = EO#) BASOPHIL # (test code 0.02 K/mm3 0.0-0.2 N = BA#) NUCLEATED RBC # (test 0.00 K/mm3 0.0-0.1 N code = NRBC#) DIFFERENTIAL [id number] 06:43:00 Test Item Value Reference Range Interpretation Comments RBC MORPHOLOGY REQUIRED (test code ABNORMAL = RBCM) PLATELET ESTIMATE (test code = DECREASED ADEQUATE PLTEST) PLATELET MORPHOLOGY (test code = NORMAL NORMAL PLTMORPH) HYPOCHROMIA (test code = HYPO) SLIGHT NONE POIKILOCYTOSIS (test code = POIK) MODERATE NONE ANISOCYTOSIS (test code = ANISO) MODERATE NONE MACROCYTOSIS (test code = MACR) MODERATE NONE SPHEROCYTES (test code = SPH) FEW NONE TARGET CELLS (test code = TGT) FEW NONE ELLIPTOCYTES (test code = ELL) FEW NONE RENAN CELLS (test code = RENAN) MODERATE NONE ACANTHOCYTES (test code = ACAN) FEW NONE OVALOCYTES (test code = OVAL) FEW NONE SCHISTOCYTES (test code = ALEIDA) FEW NONE BASIC METABOLIC [id number] 04:28:00 Test Item Value Reference Range Interpretation Comments SODIUM (test code = 136 MMOL/L 137-145 L NA) POTASSIUM (test code 3.6 MMOL/L 3.5-5.1 N = K) CHLORIDE (test code 109 MMOL/L 98-107 H = CL) CARBON DIOXIDE (test 24 MMOL/L 22-30 code = CO2) ANION GAP (test code 7 MMOL/L 14-24 L = GAP) GLUCOSE (test code = 115 MG/DL 74-106 H GLU) BLOOD UREA NITROGEN 35 MG/DL 9-20 H (test code = BUN) GLOMERULAR > 60 The Glomerular FILTRATION RATE Filtration R ate is a (test code = GFR) calculated parameterbased on serum Creatinine, pat ient age and sex. GFR va luesless than 60 mL/min/ 1.73 square meters a re indicative ofCh ronic Kidney Disease. Values less than 15 mL/min/1.73squa re meters indicate Kidney failure. The calculation for GFR is based on the CK D-EPI (2020) calculat ion. This formulais race indifferent and is the recommended for surjit for GFRby the [facility] Kidney Foundati on for Adults.The GFR will not calculate if th e sex is unknown or if thepatient's ag e is <18 years. CREATININE (test 1.20 MG/DL 0.66-1.25 N code = CREAT) CALCIUM (test code = 8.8 MG/DL 8.4-10.2 N CA) [id number] 04:28:00 Test Item Value Reference Range Interpretation Comments MAGNESIUM (test code = MAG) 2.2 MG/DL 1.6-2.3 GLUCOSE BEDSIDE [id number] 21:27:00 Test Item Value Reference Range Interpretation Comments GLUCOSE BEDSIDE TESTING (test code 122 MG/DL 60-99 H = GLUBED) URINALYSIS [id number] 20:20:00 Test Item Value Reference Range Interpretation Comments UA COLOR (test code = YELLOW YELLOW COLU) UA APPEARANCE (test code SLIGHT CLOUDY CLEAR = APPU) UA GLUCOSE DIPSTICK (test NORMAL MG/DL NORMAL code = DGLUU) UA BILIRUBIN DIPSTICK NEGATIVE MG/DL NEGATIVE (test code = BILU) UA KETONE DIPSTICK (test NEGATIVE MG/DL NEGATIVE code = KETU) UA SPECIFIC GRAVITY (test 1.025 1.003-1.030 N code = SGU) UA BLOOD DIPSTICK (test 250 Concepcion/mm3 NEGATIVE A code = EDILMA) UA PH DIPSTICK (test code 5.0 5.0-9.0 N = CHERELLE) UA PROTEIN DIPSTICK (test 30 MG/DL NEGATIVE A code = PROU) UA UROBILINIOGEN DIPSTICK NORMAL MG/DL NORMAL (test code = URO) UA NITRITE DIPSTICK (test NEGATIVE NEGATIVE code = JOY) UA LEUKOCYTE ESTERASE TRACE /mm3 NEGATIVE A DIPSTICK (test code = LEUU) UA CULTURE NEEDED? (test NO, WBC <10 Criteria Culture Chk code = UACULT) SOURCE OF URINE: CLEAN CATCHUA [id number] 20:20:00 Test Item Value Reference Range Interpretation Comments UA RBC (test code = RBCU) 50-100 RBC/HPF 0-3 A UA WBC (test code = XWBCU) 3-5 WBC/HPF 0-5 UA EPITHELIAL CELLS (test code FEW EPI/HPF FEW = EPIU) UA BACTERIA (test code = FEW NONE XBACU) SOURCE OF URINE: CLEAN CATCHGLUCOSE BEDSIDE [id number] 16:41:00 Test Item Value Reference Range Interpretation Comments GLUCOSE BEDSIDE TESTING (test code = 99 MG/DL 60-99 N GLUBED) HGB [id number] 13:10:00 Test Item Value Reference Range Interpretation Comments HEMOGLOBIN (test code = HGB) 7.2 G/DL 12.4-16.7 L HEMATOCRIT (test code = HCT) 21.1 % 35.9-49.5 L GLUCOSE BEDSIDE [id number] 12:55:00 Test Item Value Reference Range Interpretation Comments GLUCOSE BEDSIDE TESTING (test code 105 MG/DL 60-99 H = GLUBED) - XR CHEST [id number] 08:25:00 [facility] 1965 Sex: M Patient Name: CHARLES JUAREZ Unit No: [id number] EXAMS: CPT CODE: [id number] XR CHEST 1V 44351 Location Code: S17 EXAMINATION: - XR CHEST 1V CLINICAL INDICATION: Male, 56 years year old with On Ventilator COMPARISON: Chest radiograph June 19, 2022 FINDINGS: Single view(s) of the chest submitted. SupportDevices: Stable position of the lines and tubes. Heart: Cardiac silhouette is stable in size. Mediastinum: Mediastinal contours are unchanged. Lungs: Pulmonary vessels are normal in size. No evidence of focal consolidation. Pleura: No pleural effusion is identified. No pneumothorax is present. Bones: Visualized skeleton is stable in appearance. IMPRESSION: No significant interval change. No evidence of focal consolidation. at 0825 Reported and signed by: Ravinder Lee MD CC: Leif Wilson DO; Ethan Cerda MD Technologist: Kosta Romero (RT) Transcrpt Date/Tm/Trnsp: 06/20/2022 (0825) [email or web address] Orig Print D/T: S: 06/20/2022 (0828) [facility] NAME: CHARLES JUAREZ [address] [place] PHYS: [place] [address] : 1965 AGE: 56 SEX: M LOC: Z.I14 A PHONE #: [phone] EXAM DATE: 06/20/2022 STATUS: ADM IN FAX #: [phone] RADIOLOGY NO: PAGE 1 Signed ReportGLUCOSE BEDSIDE [id number] 08:17:00 Test Item Value Reference Range Interpretation Comments GLUCOSE BEDSIDE TESTING (test code = 93 MG/DL 60-99 N GLUBED) [id number] 06:44:00 Test Item Value Reference Range Interpretation Comments FIBRINOGEN (test code = FIB) 111 mg/dL 200-393 L Comments to Obstetrician And Gynaecologist: [id number] 06:44:00 Test Item Value Reference Range Interpretation Comments D-DIMER (test 5169 ng/mLFEU 0-499 H Negative Pred ictive Value code = cutoff for DVT & PE: < 500 DDIMER) ng/mL FEUInterp retation: A value of < 500 ng/mL FEU has a NegativeP redictive Value in ruling out a DVT or PE diagnosis .A value of 500 ng/mL or gr eater is considered Positive.Positi ve result cannot be used for the diagnosis of DV T andPE without using o f standard radiological pr ocedures. Comments to Obstetrician And Gynaecologist: add-onCBC W/O [id number] 06:15:00 Test Item Value Reference Range Interpretation Comments WHITE BLOOD CELL (test 3.4 K/MM3 3.8-9.8 L code = WBC) RED BLOOD CELL (test 2.10 M/MM3 3.95-5.67 L code = RBC) HEMOGLOBIN (test code 6.4 G/DL 12.4-16.7 LL CALLED TO Terry JAIN = HGB) & READBACK ON 06/20/22 AT 035 7 BY Boris Naik HEMATOCRIT (test code 18.4 % 35.9-49.5 LL CALLED TO Terry JAIN = HCT) & READBACK ON 06/20/22 AT 035 7 BY Boris Naik MEAN CELL VOLUME (test 88 fL 81.7-96.1 N code = MCV) MEAN CELL HGB (test 30.5 pg 27.6-33.2 N code = MCH) MEAN CELL HGB 34.8 % 32.9-35.5 N CONCETRATION (test code = MCHC) RED CELL DISTRIBUTION 21.1 % 12.1-15.2 H WIDTH (test code = RDW) PLATELET COUNT (test 56 K/MM3 129-368 L code = PLT) NEUTROPHIL # (test 2.72 K/mm3 2.0-7.6 N code = NT#) IMMATURE GRANULOCYTE # 0.02 x10 3/uL 0-0.03 N (test code = IG#) LYMPHOCYTE # (test 0.30 K/mm3 1.0-3.8 L code = LY#) MONOCYTE # (test code 0.29 K/mm3 0.1-0.8 N = MO#) EOSINOPHIL # (test 0.05 K/mm3 0.0-0.2 N code = EO#) BASOPHIL # (test code 0.01 K/mm3 0.0-0.2 N = BA#) NUCLEATED RBC # (test 0.00 K/mm3 0.0-0.1 N code = NRBC#) DIFFERENTIAL [id number] 06:15:00 Test Item Value Reference Range Interpretation Comments RBC MORPHOLOGY REQUIRED ABNORMAL (test code = RBCM) PLATELET ESTIMATE (test code MARKED DECREASED ADEQUATE = PLTEST) PLATELET MORPHOLOGY (test NORMAL NORMAL code = PLTMORPH) POLYCHROMASIA (test code = MODERATE NONE POLC) HYPOCHROMIA (test code = SLIGHT NONE HYPO) POIKILOCYTOSIS (test code = FEW NONE POIK) ANISOCYTOSIS (test code = MODERATE NONE ANISO) MACROCYTOSIS (test code = MODERATE NONE MACR) SPHEROCYTES (test code = FEW NONE SPH) TARGET CELLS (test code = FEW NONE TGT) TEAR DROP CELLS (test code = FEW NONE TEAR) RENAN CELLS (test code = FEW NONE RENAN) ACANTHOCYTES (test code = FEW NONE ACAN) OVALOCYTES (test code = FEW NONE OVAL) [id number] 05:12:00 Test Item Value Reference Range Interpretation Comments AMMONIA (test code = AMM) 60 mcMOL/L 9-30 H BASIC METABOLIC [id number] 05:12:00 Test Item Value Reference Range Interpretation Comments SODIUM (test code = 138 MMOL/L 137-145 N NA) POTASSIUM (test code 3.6 MMOL/L 3.5-5.1 N = K) CHLORIDE (test code 114 MMOL/L 98-107 H = CL) CARBON DIOXIDE (test 17 MMOL/L 22-30 L code = CO2) ANION GAP (test code 11 MMOL/L 14-24 L = GAP) GLUCOSE (test code = 85 MG/DL 74-106 N GLU) BLOOD UREA NITROGEN 32 MG/DL 9-20 H (test code = BUN) GLOMERULAR > 60 The Glomerular FILTRATION RATE Filtration R ate is a (test code = GFR) calculated parameterbased on serum Creatinine, pat ient age and sex. GFR va luesless than 60 mL/min/ 1.73 square meters a re indicative ofCh ronic Kidney Disease. Values less than 15 mL/min/1.73squa re meters indicate Kidney failure. The calculation for GFR is based on the CK D-EPI (2020) calculat ion. This formulais race indifferent and is the recommended for surjit for GFRby the [facility] on for Adults.The GFR will not calculate if th e sex is unknown or if thepatient's ag e is <18 years. CREATININE (test 1.20 MG/DL 0.66-1.25 N code = CREAT) CALCIUM (test code = 7.7 MG/DL 8.4-10.2 L CA) [id number] 05:12:00 Test Item Value Reference Range Interpretation Comments MAGNESIUM (test code = MAG) 1.9 MG/DL 1.6-2.3 N - XR ABDOMEN 1 [id number] 04:52:00 [facility] 1965 Sex: M Patient Name: CHARLES JUAREZ Unit No: [id number] EXAMS: CPT CODE: [id number] XR ABDOMEN 1 V 49526 Abdomen, 1 Supine View Location Code M12 History: CONFIRM OG TUBE PLACEMENT Findings: The bowel gas patternis not well-visualized. There is an NG tube with side port at or just beyond the gastroesophageal junction. Impression: NGT side port projecting near the gastroesophageal junction. Recommend repositioning into the stomach another 5-10 cm. at 0452 Reported and signed by: Marce Lu M.D. CC: Leif Wilson DO; Ethan Cerda MD Technologist: Kosta Romero (RT) Transcrpt Date/Tm/Trnsp: 06/20/2022 (0452) [id number] Orig Print D/T: S: 06/20/2022 (0456) [facility] NAME: CHARLES JUAREZ [address] [place] PHYS: KEDAR [place] [address] : 1965 AGE: 56 SEX: M LOC: Z.I14 A PHONE #: [phone] EXAM DATE: 06/20/2022 STATUS: ADM IN FAX #: [phone] RADIOLOGY NO: PAGE 1 Signed Report LACTIC [id number] 01:14:00 Test Item Value Reference Range Interpretation Comments LACTIC ACID (test code = LACT) 1.8 MMOL/L 0.7-2.1 N LACTIC [id number] 21:14:00 Test Item Value Reference Range Interpretation Comments LACTIC ACID (test code = LACT) 2.1 MMOL/L 0.7-2.1 N "TO BE COLLECTED BY NURSE"NOTIFIED SOM KIRBY 06/19/22 AT 1827 BY Yoav Mathias [id number] 21:02:00 Test Item Value Reference Range Interpretation Comments RBC MORPHOLOGY REQUIRED (test code = RBCM) PLATELET ESTIMATE (test code = PLTEST) ADEQUATE PLATELET MORPHOLOGY (test code = NORMAL PLTMORPH) Comments to Obstetrician And Gynaecologist: POST TRANSFUSION H/HRECOLLECTION NEEDED. NOTIFIED ABE FRIEDMAN 20:13HGB [id number] 21:02:00 Test Item Value Reference Range Interpretation Comments HEMOGLOBIN (test code = 5.9 G/DL 12.4-16.7 LL CALL ED TO NITA FRIEDMAN & HGB) READBACK ON AT 2052 BY Christen GarciaFI RMED BY MELI SONI IMJESSA DRAWN PER ABE FRIEDMAN HEMATOCRIT (test code = 17.2 % 35.9-49.5 LL CALL ED TO NITA FRIEDMAN & HCT) READBACK ON AT 2053 BY Jesica Garcia Comments to Obstetrician And Gynaecologist: POST TRANSFUSION H/HRECOLLECTION NEEDED. NOTIFIED ABE FRIEDMAN 20:13- XR CHEST [id number] 17:01:00 [facility] 1965 Sex: M Patient Name: CHARLES JUAREZ Unit No: [id number] EXAMS: CPT CODE: [id number] XR CHEST 1V 80138 LOCATION:Q15 HISTORY: 56-year-old male, status post PICC line placement. COMMENT: A frontal chest radiograph was obtained at the bedside at 4:46 p.m., and compared to a study obtained earlier today at 3:39 a.m.Since prior study a left arm PICC line has been placed. The catheter tip overlies the superior vena cava. Otherwise, the chest is unchanged. IMPRESSION: This patient is status post left arm PICC line placement. The catheter tip overlies the superior vena cava. at 1701 Reported and signed by: Emiliano Diaz M.D. CC: Chris Owens MD; Ethan Cerda MD Technologist: Chandan Ruby RT Transcrpt Date/Tm/Trnsp: 06/19/2022 (1700) [id number] Print D/T: S: 06/19/2022 (1703) [facility] NAME: CHARLES JUAREZ [address] [place] PHYS: [place] [address] : 1965 AGE: 56 SEX: M LOC: Z.I14 A PHONE #: [phone] EXAM DATE: 06/19/2022 STATUS: ADM IN FAX #: [phone] RADIOLOGY NO: PAGE 1 Signed ReportDRUGS OF ABUSE SCREEN [id number] 16:26:00 Test Item Value Reference Range Interpretation Comments UR COCAINE (test code = NEGATIVE NEGATIVE Cut off Value: 300 COCAU) ng/mL UR CANNABINOIDS (THC) NEGATIVE NEGATIVE Cut of f Value: 50 (test code = CANU) ng/mL UR AMPHETAMINE (test code NEGATIVE NEGATIVE Cu t off Value: 1000 = AMPHU) ng/mL UR BARBITURATE QUAL (test NEGATIVE NEGATIVE Cu t off Value: 200 code = BARBQLU) ng/mL UR BENZODIAZEPINE (test POSITIVE NEGATIVE A Cut off Value: 200 code = BENZU) ng/mL UR OPIATES QUAL (test code NEGATIVE NEGATIVE C ut off Value: 300 = OPIAQLU) ng/mL UR PHENCYCLIDINE (PCP) NEGATIVE NEGATIVE Cut o ff Value: 25 (test code = PHENCU) ng/mL BODY FLUID [id number] 16:00:00 Test Item Value Reference Range Interpretation Comments BODY FLUID < 1.0 G/DL Reference inter vals and other ALBUMIN (test method code = ALBF) performancespec ifications have not been establ ished for this test. Thetest r esult should be integrated into the clinical contextfor inte rpretation. Specimen comments: PERITONEALPERITONEAL FLD CELL CT/[id number] 16:00:00 Test Item Value Reference Range Interpretation Comments DILUENT CHECK FOR CELL CT CLEAR & pH NEUTRAL CLEAR,pH=7 (test code = DILUENT) PERITONEAL FLD COLOR (test RED COLORLESS code = COLPT) PERITONEAL FLD APPEARANCE CLOUDY CLEAR (test code = APPPT) PERITONEAL FLD WBC (test 163 #/MM3 code = WBCPT) PERITONEAL FLD RBC (test 08127 code = RBCPT) PERITONEAL FLD POLY (test 40 % code = POLYPT) PERITONEAL FLD LYMPHOCYTE 24 % 0-78 N (test code = LYMPHPT) PERITONEAL FLD MONOCYTE 35 % 0-71 N (test code = MONOPT) PERITONEAL FLD EOSINOPHIL 1 % (test code = EOSPT) Specimen comments: PERITONEALPERITONEAL FLD [id number] 16:00:00 Test Item Value Reference Range Interpretation Comments PERITONEAL FLD LDH (test code = 56 UNITS/L LDHPT) Specimen comments: PERITONEALPERITONEAL FLD [id number] 16:00:00 Test Item Value Reference Range Interpretation Comments PERITONEAL FLD AMYLASE (test < 30 UNITS/L code = AMYPT) Specimen comments: PERITONEALLACTIC [id number] 13:13:00 Test Item Value Reference Range Interpretation Comments LACTIC ACID (test code = LACT) 2.3 MMOL/L 0.7-2.1 H - PARACENTESIS W [id number] 12:41:00 [facility] 1965 Sex: M Patient Name: CHARLES JUAREZ Unit No: [id number] EXAMS: CPT CODE: [id number] PARACENTESIS W IMAGE 13723 EXAMINATION: IMAGE-GUIDED PARACENTESIS. LOCATION: B2. HISTORY: Ascites. SEDATION: The patient did notrequire conscious sedation for the procedure. ANTIBIOTICS: None. Not indicated. CONTRAST: None. TECHNIQUE: The risks, benefits, and alternatives were discussed and informed consent was obtained. Prior to beginning the procedure, [place] Protocol was used to confirm the patient's identity and plannedprocedure. Sterile barriers including cap, mask, hand hygiene, sterile gloves, sterile drape and cutaneous antisepsis were used. The patient's abdomen was examined with ultrasound and a suitable pocketof ascitic fluid in the right lower quadrant was identified. The overlying skin was anesthetized with lidocaine. Using real-time ultrasound guidance, a One-Step needle was advanced into the ascitic fluid. Approximately 3600 mL of serosanguineous fluid was drained. Samples were sent for lab analysis. At the conclusion of the procedure, the catheter was removed and a sterile dressing applied to the site. ESTIMATED BLOOD LOSS: Less than 30 milliliters. COMPLICATIONS: None. DISCHARGED TO: Performed at bedside in ICU. FINDINGS: Ultrasound demonstrated a moderate to large amount of ascitic fluid. IMPRESSION: Successful image-guided paracentesis. complaint operator: Zayda Nicholas PA-C. ElectronicallySigned by Tala Welch MD on 06/19/2022 at 1241 Reported and signed by: Tala Welch MD [facility] [address] [address] PHYS: Rosenda Melendez MD [address] [address] : 1965 AGE: 56 SEX: M LOC: Z.I14 A PHONE #: [phone] EXAM DATE: 06/19/2022 S TATUS: ADM IN FAX #: [phone] RADIOLOGY NO: PAGE 1 Signed Report (CONTINUED) Patient Name: CHARLES JUAREZ Unit No: [id number] EXAMS: CPT CODE: [id number] PARACENTESIS W IMAGE 14367 (Continued) CC: MD Rosenda Alaina; Papito Carolina MD Technologist: Dorothy Peoples RDMS() Transcrpt Date/Tm/Trnsp: 06/19/2022 (1241) [id number].[email or web address] Orig Print D/T: S: 06/19/2022 (1244) [facility] NAME: CHARLES JUAREZ [address] [place] PHYS: Rosenda Melendez MD [address] [address] : 1965 AGE: 56 SEX: M LOC: Z.I14 A PHONE #: [phone] EXAM DATE: 06/19/2022 STATUS: ADM IN FAX #: [phone] RADIOLOGY NO: PAGE 2 Signed [id number] 10:49:00 Test Item Value Reference Range Interpretation Comments AMMONIA (test code = AMM) 20 mcMOL/L 9-30 N Comments to Obstetrician And Gynaecologist: add on to blood in labCOMPREHENSIVE METABOLIC PANEL 2022-06-19 09:55:00 Test Item Value Reference Range Interpretation Comments SODIUM (test code 133 MMOL/L 137-145 L = NA) POTASSIUM (test 4.2 MMOL/L 3.5-5.1 N code = K) CHLORIDE (test 106 MMOL/L 98-107 N code = CL) CARBON DIOXIDE 20 MMOL/L 22-30 L (test code = CO2) ANION GAP (test 11 MMOL/L 14-24 L code = GAP) GLUCOSE (test 91 MG/DL 74-106 N code = GLU) BLOOD UREA 41 MG/DL 9-20 H NITROGEN (test code = BUN) GLOMERULAR 59 The Glomerular Filtration FILTRATION RATE Rate is a ca lculated (test code = GFR) parameterb ased on serum Creatinine, pat ient age and sex. GFR values less than 60 mL/min/1.73 squ are meters are indicative ofChronic Kidney Disease. Values less than 15 mL/min/ 1.73square meters indicate Kidney failure. The ca lculation forGFR is based on the CKD-EPI (2020) calculation. This formulais race indifferent and is the recommended for surjit for GFRby the [facility] for Adults.The GFR will not ca lculate if the sex is unkn own or if thepatient's ag e is <18 years. CREATININE (test 1.40 MG/DL 0.66-1.25 H code = CREAT) TOTAL PROTEIN 5.9 G/DL 6.2-7.6 L [facility] Clinical Diagnostic (test code = has made us vlad re of PROT) newinformation regarding the potential i nterference ofEltrombopag ( a bone marrow stimulan t used to treatthrombocyt onmenia and aplastic anemia ) with specific assays on the Vitros 5600 of which Total Protein is one of thoseassays per formed in our lab.Interfe rence testing perform ed at Orth[facility] determined that Eltrombopag does interfere with Vitros Total Protein asfollowsEltrom bopag Interference fo r Vitros Product Total Protein:======= Eltrombopag Max Observed Av g. BiasConcentrati on Concentration Concentration== ==== 2.5 mg/dl 6.0 g/dl +0.41 +0.34 3.5 mg/dl 6.0 g /dl +0.50 +0.45 5 mg/dl 6 .0 g/dl +0.73 +0.65 2.5 mg/dl 8.0 g/dl +0.44 +0.4 1 3.5 mg/dl 8.0 g/dl +0.55 +0.52 5 mg/dl 8.0 g/dl +0.86 +0.77 ALBUMIN (test 2.8 G/DL 3.5-5.0 L code = ALB) CALCIUM (test 9.1 MG/DL 8.4-10.2 N code = CA) BILIRUBIN TOTAL 3.2 MG/DL 0.2-1.3 H Eltrombopag Interference (test code = for Vitros Prod uct TBil, BILT) BuBc: Assa y Eltrombopag [place]/ Max Observed Avg. B ias Concentration C oncentration Concentration== ====TBil 7mg/dl TBil/ 1. 2mg/dl +0.23mg.dl +0.2 0mg/dlBuBc 3.5mg/dl Bu/0.8 mg/dl +0.25mg/dl +0.2 4mg/dlBuBc 7 mg/dl Bu/14.2mg /dl +0.38mg/dl +0.2 5mg/dlBuBc 5mg/dl Bc/0mg/d l +0.25mg/dl +0.15mg/dlBuBc 3.5mg/dl Bc/2.8mg/dl +0. 25mg/dl +0.23mg/dl SGOT/AST (test 209 UNITS/L 17-59 H code = AST) SGPT/ALT (test 82 UNITS/L 0-49 H code = ALT) ALKALINE 108 UNITS/L 38-126 PHOSPHATASE (test code = ALKP) [id number] 09:55:00 Test Item Value Reference Range Interpretation Comments MAGNESIUM (test code = MAG) 2.2 MG/DL 1.6-2.3 N LACTIC [id number] 08:50:00 Test Item Value Reference Range Interpretation Comments LACTIC ACID (test code = LACT) 2.9 MMOL/L 0.7-2.1 H [id number] 07:27:00 Test Item Value Reference Range Interpretation Comments ALCOHOL (test code = ALC) < 10.0 MG/DL <10 LACTIC [id number] 07:15:00 Test Item Value Reference Range Interpretation Comments LACTIC ACID (test code = LACT) 3.2 MMOL/L 0.7-2.1 H DIFFERENTIAL [id number] 05:30:00 Test Item Value Reference Range Interpretation Comments RBC MORPHOLOGY REQUIRED (test code = ABNORMAL RBCM) PLATELET ESTIMATE (test code = ADEQUATE ADEQUATE PLTEST) PLATELET MORPHOLOGY (test code = NORMAL NORMAL PLTMORPH) POLYCHROMASIA (test code = POLC) FEW NONE HYPOCHROMIA (test code = HYPO) SLIGHT NONE POIKILOCYTOSIS (test code = POIK) MODERATE NONE ANISOCYTOSIS (test code = ANISO) MANY NONE MACROCYTOSIS (test code = MACR) MANY NONE TARGET CELLS (test code = TGT) FEW NONE TEAR DROP CELLS (test code = TEAR) FEW NONE ELLIPTOCYTES (test code = ELL) FEW NONE RENAN CELLS (test code = RENAN) MODERATE NONE ACANTHOCYTES (test code = ACAN) MODERATE NONE OVALOCYTES (test code = OVAL) FEW NONE SCHISTOCYTES (test code = ALEIDA) FEW NONE CBC W/AUTO [id number] 05:30:00 Test Item Value Reference Range Interpretation Comments WHITE BLOOD CELL (test 4.8 K/MM3 3.8-9.8 N code = WBC) RED BLOOD CELL (test 2.17 M/MM3 3.95-5.67 L code = RBC) HEMOGLOBIN (test code 6.7 G/DL 12.4-16.7 LL CALLED TO NITA Jacobson = HGB) & READBACK ON 06/19/22 AT 023 6 BY Naik,Boris HEMATOCRIT (test code 20.2 % 35.9-49.5 L = HCT) MEAN CELL VOLUME (test 93 fL 81.7-96.1 N code = MCV) MEAN CELL HGB (test 30.9 pg 27.6-33.2 N code = MCH) MEAN CELL HGB 33.2 % 32.9-35.5 N CONCETRATION (test code = MCHC) RED CELL DISTRIBUTION 21.4 % 12.1-15.2 H WIDTH (test code = RDW) PLATELET COUNT (test 113 K/MM3 129-368 L code = PLT) MEAN PLATELET VOLUME 10.5 fl 7.4-10.4 H (test code = MPV) NEUTROPHIL % (test 73.3 % 43-75 N code = NT%) IMMATURE GRANULOCYTE % 0.4 % 0.0-2.0 N (test code = IG%) LYMPHOCYTE % (test 15.9 % 14-44 N code = LY%) MONOCYTE % (test code 6.9 % 4-13 N = MO%) EOSINOPHIL % (test 3.1 % 0-6 N code = EO%) BASOPHIL % (test code 0.4 % 0-2 N = BA%) NUCLEATED RBC % (test 0.0 % 0-1.0 N code = NRBC%) NEUTROPHIL # (test 3.50 K/mm3 2.0-7.6 N code = NT#) IMMATURE GRANULOCYTE # 0.02 x10 3/uL 0-0.03 N (test code = IG#) LYMPHOCYTE # (test 0.76 K/mm3 1.0-3.8 L code = LY#) MONOCYTE # (test code 0.33 K/mm3 0.1-0.8 N = MO#) EOSINOPHIL # (test 0.15 K/mm3 0.0-0.2 N code = EO#) BASOPHIL # (test code 0.02 K/mm3 0.0-0.2 N = BA#) NUCLEATED RBC # (test 0.00 K/mm3 0.0-0.1 N code = NRBC#) ARTERIAL BLOOD [id number] 05:19:00 Test Item Value Reference Range Interpretation Comments ARTERIAL BLOOD GAS PH 7.52 mmHg 7.35-7.45 H (test code = PHA) ARTERIAL BLOOD GAS 23.6 mmHg 35.0-45.0 LL PCO2 (test code = PCO2A) ARTERIAL BLOOD GAS 178.5 mmol/L 80.0-100.0 H PO2 (test code = PO2A) BICARBONATE TOTAL 18.9 mmol/L 20.0-26.0 L HCO3 (test code = HCO3) BASE EXCESS (test -1.8 mmol/L -3.0-3.0 N code = DIXON) ABG O2 SATURATION 99.4 % 95.0-100.0 N All critic al values (test code = SATA) report to and readback by Dr. Wilson by [id number] at 06/19/2022 5:17: 39 AMPCO2 > 200 mmHg ABG DELIVERY (test VENT code = DALLAS) ABG VENT MODE (test A/C code = MODEA) ABG VENT RESP RATE 20.0 /MIN (test code = RRA) ABG TIDAL VOLUME 450.0 ml (test code = TVA) ABG PEEP (test code = 5.0 cmH2O PEEPA) ABG TEMPERATURE (test 37.0 C See_Comment [Auto mated message] code = TEMPA) The system [email or web address] generated this result transmit jose manuel reference range : 37. The reference r dottie was not used to interpret this result as normal/abnormal . ABG SITE (test code = RR SITEA) ALLENS TEST (test Y CHECK code = ALLENS) FIO2 (test code = 35 % COHBGFFIO2) PROTHROMBIN [id number] 04:49:00 Test Item Value Reference Range Interpretation Comments PROTHROMBIN TIME 20.4 SECONDS 9.4-12.7 H PATIENT (test code = PTP) INTERNATIONAL NORMAL 1.8 0.86-1.14 H The INR is to be RATIO (test code = used only for INR) monitoring oral anticoagulantth erap y. INDICATION INR VALUE ---- ---- ---- -------1. Prophylaxis, de ep venous thrombos is, including high risk surgery. 2.0 - 3.0 2. Prophylaxis, deep venous thrombosis, hip surgery, treatm ent for deep venous thrombosis or pulmonary prevention of systemic emboli sm in patients wit h valvular heart disease, atrial fibrillation, tissue heart va lve, or acute myocar dial infarction. 2.0 - 3.0 3. Manager Bak[employer] al prosthesis hear t valves, recurre nt systemic emboli sm. 3.0 - 4.5 Comments to Obstetrician And Gynaecologist: add-on pleaseLACTIC [id number] 04:35:00 Test Item Value Reference Range Interpretation Comments LACTIC ACID (test 4.2 MMOL/L 0.7-2.1 HH CALLED TO ARABELLA.Cornel& code = LACT) READBACK ON AT 0435 BY Mary Alexandre X - XR CHEST [id number] 03:53:00 [facility] 1965 Sex: M Patient Name: CHARLES JUAREZ Unit No: [id number] EXAMS: CPT CODE: [id number] XR CHEST 1V 24221 HISTORY: Intubation Location: C3 COMPARISON:04/27/2022 FINDINGS: Endotracheal tube is present tip above the sommer. Nasogastric tube is noted with distal aspect overlying the stomach. No focal consolidation. No significant effusion or pneumothorax. IMPRESSION: Interval placement of endotracheal tube and nasogastric tube as above. at 0353 Reported and signed by: Emiliano Conrad MD CC: Leif Wilson DO; Papito Carolina MD Technologist: Kosta Romero (RT) Transcrpt Date/Tm/Trnsp: 06/19/2022 (352) [email or web address].[email or web address] Orig Print D/T: S: 06/19/2022 (035) [facility] E: CHARLES JUAREZ [address] [address] [place] PHYS: [place] [address] : 1965 AGE: 56 SEX: M LOC: Ceci Unger PHONE #: [phone] EXAM DATE: 06/19/2022 STATUS: ADM IN FAX #: [phone] RADIOLOGY NO: PAGE 1 Signed ReportCOMPREHENSIVE METABOLIC [id number] 02:51:00 Test Item Value Reference Range Interpretation Comments SODIUM (test code 134 MMOL/L 137-145 L = NA) POTASSIUM (test 5.1 MMOL/L 3.5-5.1 N code = K) CHLORIDE (test 105 MMOL/L 98-107 N code = CL) CARBON DIOXIDE 19 MMOL/L 22-30 L (test code = CO2) ANION GAP (test 15 MMOL/L 14-24 N code = GAP) GLUCOSE (test 101 MG/DL 74-106 N code = GLU) BLOOD UREA 39 MG/DL 9-20 H NITROGEN (test code = BUN) GLOMERULAR 54 The Glomerular Filtration FILTRATION RATE Rate is a ca lculated (test code = GFR) parameterb ased on serum Creatinine, pat ient age and sex. GFR values less than 60 mL/min/1.73 squ are meters are indicative ofChronic Kidney Disease. Values less than 15 mL/min/ 1.73square meters indicate Kidney failure. The ca lculation forGFR is based on the CKD-EPI (2020) calculation. This formulais race indifferent and is the recommended for surjit for GFRby the [facility] Foundation for Adults.The GFR will not ca lculate if the sex is unkn own or if thepatient's ag e is <18 years. CREATININE (test 1.50 MG/DL 0.66-1.25 H code = CREAT) TOTAL PROTEIN 7.3 G/DL 6.2-7.6 N [facility] Clinical Diagnostic (test code = has made us vlad re of PROT) newinformation regarding the potential i nterference ofEltrombopag ( a bone marrow stimulan t used to treatthrombocyt onmenia and aplastic anemia ) with specific assays on the Vitros 5600 of which Total Protein is one of thoseassays per formed in our lab.Interfe rence testing perform ed at Ortho determined that Eltrombopag does interfere with Vitros Total Protein asfollowsEltrom bopag Interference fo r Vitros Product Total Protein:======= Eltrombopag Max Observed Av g. BiasConcentrati on Concentration Concentration== ==== 2.5 mg/dl 6.0 g/dl +0.41 +0.34 3.5 mg/dl 6.0 g /dl +0.50 +0.45 5 mg/dl 6 .0 g/dl +0.73 +0.65 2.5 mg/dl 8.0 g/dl +0.44 +0.4 1 3.5 mg/dl 8.0 g/dl +0.55 +0.52 5 mg/dl 8.0 g/dl +0.86 +0.77 ALBUMIN (test 3.6 G/DL 3.5-5.0 N code = ALB) CALCIUM (test 9.4 MG/DL 8.4-10.2 N code = CA) BILIRUBIN TOTAL 4.0 MG/DL 0.2-1.3 H Eltrombopag Interference (test code = for Vitros Prod uct TBil, BILT) BuBc: Assa y Eltrombopag [place]/ Max Observed Avg. B ias Concentration C oncentration Concentration== ====TBil 7mg/dl TBil/ 1. 2mg/dl +0.23mg.dl +0.2 0mg/dlBuBc 3.5mg/dl Bu/0.8 mg/dl +0.25mg/dl +0.2 4mg/dlBuBc 7 mg/dl Bu/14.2mg /dl +0.38mg/dl +0.2 5mg/dlBuBc 5mg/dl Bc/0mg/d l +0.25mg/dl +0.15mg/dlBuBc 3.5mg/dl Bc/2.8mg/dl +0. 25mg/dl +0.23mg/dl SGOT/AST (test 266 UNITS/L 17-59 H code = AST) SGPT/ALT (test 139 UNITS/L 0-49 H code = ALT) ALKALINE 152 UNITS/L 38-126 H PHOSPHATASE (test code = ALKP) LACTIC [id number] 02:40:00 Test Item Value Reference Range Interpretation Comments LACTIC ACID (test 6.6 MMOL/L 0.7-2.1 HH CALLED TO HIEN.Jacob& code = LACT) READBACK ON AT 0240 BY Mary Alexandre SARS-CoV-2 RNA Resp Ql [id number] 18:39:40 Test Item Value Reference Range Interpretation Comments Hospitalized? (test No code = 00383-4) ICU? (test code = No 43206-1) Symptomatic as defined No by CDC? (test code = 84239-8) Employed in No Healthcare? (test code = 98511-9) Resident in a Yes congregate care setting (including nursing homes, residential care for people with intellectual and developmental disabilities, psychiatric treatment facilities, group homes, board and care homes, homeless halfway, foster care or other): (test code = 93916-8) SARS-CoV-2 RNA Resp Ql NOT DETECTED Not Detected The 2 019 novel LULU+probe (test code = marcos chowdary 53637-4) (SARS-CoV-2) ta rget nucleic acids a re not detected. The BEST Li SARS-CoV-2/Influenza is a real-time RT-PCR based diagnostic test intended for the qualitative detection of SARS-CoV-2 viral RNA in a nasopharyngeal swab during acute phase of infection. This test was developed and its performance characteristics have been determined by the [facility]. This test has not been cleared or approved by the FDA. This test system has been authorized by the FDA under an Emergency Use Authorization (EUA). This test has been validated in accordance with the FDA's Guidance document "Policy for Coronavirus Disease-2019 Tests During the Public Health Emergency" (Revised July 2019) and is used for clinical purposes. It should not be regarded as investigational or for researchPositive results are indicative of the presence of the identified virus, but do not rule out bacterial infection or co-infection with other pathogens not detected by the test. Clinical correlation with patient history and other diagnostic information is necessary to determine patient infection status. Negative results do not preclude SARS-CoV-2 or Influenza A and B and should not be used as the sole basis for treatment or other patient management decisions. Negative results must be combined with clinical observations, patient history, and/or epidemiological information. If co-infection with influenza A or influenza B virus is suspected in samples with a positive SARS-CoV-2 result, please contact the laboratory so that the sample can be re-tested with a different instrument, if influenza virus detection would change clinical management.This laboratory is certified under the Clinical Laboratory Improvement Amendments (CLIA) as qualified to perform high complexity clinical laboratory testing.HHSHIV 1+2 Ab+HIV1 p24 Ag SerPl Ql [id number] 15:01:37 Test Item Value Reference Range Interpretation Comments HIV 1+2 Ab+HIV1 p24 Ag SerPl Ql IA NEGATIVE Negative (test code = 45528-3) HHSHCV RNA SerPl LULU+[id number] 01:38:34 Test Item Value Reference Range Interpretation Comments HCV RNA SerPl LULU+probe-aCnc 9939807 IU/mL <=0 H (test code = 75134-6) This test utilizes FDA cleared BEST AmpliPrep/BEST TaqMan HCV test, v2.0 from [employer] which allows quantitation of viral loads between 15 copies/mL and 10,000,000 of plasma. Whenthe result is positive but <15 copies/mL of HCV RNA, the test will be reported as detected but less than 15 copies/mL". The BEST AmpliPrep/ BEST TaqMan HCV test, v2.0 is not intended for use as a screening test for the presence of HCV RNA in blood or as a diagnostic test to confirm the presence of HCV infection. This test is intended for use as an aid in the management of patients with HCV infection.HHSFLUABV+SARS-CoV-2+RSV Pnl Resp [id number] 03:21:08 Test Item Value Reference Range Interpretation Comments Symptomatic as defined No by CDC? (test code = 75265-1) Hospitalized? (test No code = 61407-1) ICU? (test code = No 11086-3) Employed in No Healthcare? (test code = 35095-1) Resident in a Unknown congregate care setting (including nursing homes, residential care for people with intellectual and developmental disabilities, psychiatric treatment facilities, group homes, board and care homes, homeless halfway, foster care or other): (test code = 34083-2) SARS-CoV-2 RNA Resp Ql NOT DETECTED Not Detected The 2 019 novel LULU+probe (test code = coron avirus 71387-6) (SARS-CoV-2) ta rget nucleic acids a re not detected. COMMENT: The T[employer] GeneXpert Xpress SARS-CoV-2/Flu/RSV test is a rapid, multiplexed real-time RT-PCR test intended for the simultaneous qualitative detection and differentiation of SARS-CoV-2, influenza A, influenza B, and/or respiratory syncytial virus (RSV) viral RNA in a nasopharyngeal swab. Thistest was developed and its performance characteristics have been determined by the [facility]. This test has not been cleared or approved by the FDA. This test system has been authorized by the FDA under an Emergency Use Authorization (EUA). This test has been validated in accordance with the FDA's Guidance document "Policy for Coronavirus Disease-2019 Tests During the Public Health Emergency" (Revised July 2019) and is used for clinical purposes. It should not be regarded as investigational or for researchPositive results are indicative of the presence of the identified virus, but do not rule out bacterial infection or co-infection with other pathogens not detected by the test. Clinical correlation with patient history and other diagnostic information is necessary to determine patient infection status. Negative results do not preclude SARS-CoV-2, influenza A virus, influenza B virus and/or RSV infection and should not be used as the sole basis for treatment or other patient management decisions. Negative results must be combined with clinical observations, patient history, and/or epidemiological information.This laboratory is certified under the Clinical Laboratory Improvement Amendments (CLIA) as qualified to perform high complexity clinical l aboratory testing.HKFCMTQ-JjE-0 RNA Resp Ql LULU+[id number] 10:12:35 Test Item Value Reference Range Interpretation Comments Hospitalized? (test No code = 88557-0) ICU? (test code = No 25595-4) Symptomatic as defined No by CDC? (test code = 76246-6) Employed in No Healthcare? (test code = 17548-3) Resident in a No congregate care setting (including nursing homes, residential care for people with intellectual and developmental disabilities, psychiatric treatment facilities, group homes, board and care homes, homeless halfway, foster care or other): (test code = 43796-5) SARS-CoV-2 RNA Nph Ql NOT DETECTED Not Detected The 20 novel LULU+probe (test code = coron avirus 01857-0) (SARS-CoV-2) ta rget nucleic acids a re not detected. COMMENT: The Master Route SARS-CoV-2 real-time RT-PCR based diagnostic test intended for the qualitative detection of SARS-CoV-2 viral RNA in a nasopharyngeal swab during acute phase of infection. This test was developed and its performance characteristics have been determined by the [facility]. This test has not been cleared or approved by the FDA. This testsystem has been authorized by the FDA under an Emergency Use Authorization (EUA). This test has beenvalidated in accordance with the FDA\\GN03180\\s Guidance document \\GV6806N\\Policy for Coronavirus Disease-2019 Tests During the Public Health Emergency\\ZU5280E\\ (Revised July 2019) and is used for clinical purposes. It should not be regarded as investigational or for research\\GD5105Z\\Detected\\NS7455J\\ results are indicative of the presence of the identified virus, but do not rule out bacterial infection or co-infection with other pathogens not detected by the test. Clinical correlation with patient his tory and other diagnostic information is necessary to determine patient infection status. \\AF0729B\\Not Detected\\VX0159C\\ results do not preclude SARS-CoV-2 and should not be used as the sole basis for treatment or other patient management decisions. Negative results must be combined with clinical observations, patient history, and/or epidemiological information.This laboratory is certified under the Clinical Laboratory Improvement Amendments (CLIA) as qualified to perform high complexity clinical laboratory testing.[facility]- SP PARACENTESIS W [id number] 11:36:00 [facility])Name: CHARLES JUAREZ : 1965 Sex: M Name: CHARLES JUAREZ [facility] : 1965 Age/S: 56 / M [address] [facility] Unit #: [id number] Loc: [place] [address] Phys: Jen Martinez MD Acct: [id number] Dis Date: Status: ADM IN PHONE #: [phone] Exam Date: 04/27/2022 1006 FAX #: [phone] Reason: EXAMS: CPT CODE: [id number] SP PARACENTESIS W IMAGE 86604 Fluoro Time: DAP (Gy m2): Air Kerma (mGy): REASON FO R EXAM: Ascites EXAM ORDER DATE: 04/27/2022 9:30 AM Ordering: Jen Martinez MD Attending:Jen Martinez MD Location:[facility] PROCEDURE: Ultrasound guided paracentesis CPT code: 04830, 34517 FINDINGS: After informed consent was obtained, the patient was brought to special procedures. The abdomen was prepped and draped in the usual fashion, including washing hands with conventional soap and water or with alcohol-based hand rubs (ABHR), skin preparation, cap, mask, sterile gown, sterile gloves and sterile full body drape. Sterile ultrasound techniques were followed including sterile gel and s terile probe cover. Diagnostic ultrasound showed moderate ascites. Images of the ascites was submitted to PACS. Following the superficial and deep application of the local anesthetic, percutaneous entry was made into the peritoneal cavity using a guiding system under direct ultrasound visualization. Aguide wire was inserted and an 8 Ethiopian drainage catheter was inserted in the abdominal cavity. 9 L of fluid obtained. The catheter was removed and hemostasis obtained. Samples were submitted for lab analysis. MEDICATIONS: None COMPLICATIONS: None. Blood loss: less than 5cc. IMPRESSION: 9 L of fluid removed from the abdomen. at 1136 Reported and signed by: Viral Peoples M.D. CC: Jen Martinez MD Technologist: Indra Baig Trnhib Date/Time: 04/27/2022 (3132) t.[email or web address].VTL Orig Print D/T: S: 04/27/2022 (2995) PAGE 1 Signed Report- CT ABD PELVIS W/[id number] 02:39:00 [facility])Name: CHARLES JUAREZ : 1965 Sex: M Name: CHARLES JUAREZ [facility] : 1965 Age/S: 56 / M [address] [facility] Unit #: [id number] Loc: [place] [address] Phys: Nathan Flores MD Acct: [id number] Dis Date: Status: REG ER PHONE #: [phone] Exam Date: 04/27/2022219 FAX #: [phone] Reason: ABDOMINAL PAIN, DISTENSION EXAMS: CPT CODE: [id number] CT ABD PELVIS W/CONT 85449 CT abdomen and pelvis with IV contrast. Indication: Abdominal distention Location:P14 Comparison: None Technique: CT images of the abdomenand pelvis were obtained from the diaphragm to the pubic symphysis after the administration of intravenous contrast contrast. Coronal and sagittal reformats are provided. One or more of the following dose reduction techniques were used: Automated exposure control, adjustment of the mA and/or kV according to patient size, and/or utilization of iterative reconstruction technique. Findings: Lungs bases: A moderate right effusion is seen Liver: Heterogeneous lobular appearance of the liver compatible with likely cirrhosis. Multiple calcifications within the right lobe the liver may reflect prior treatment, recommend correlation with history. 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 Pancreas: Unremarkable. Spleen: Marked splenomegaly Adrenal glands: Unremarkable. Kidneys: Unremarkable. Bowel: No bowel obstruction. The appendix is not seen. Peritoneum: Large volume ascites seen. No free air. Skeletal: No acute fracture.. Impression: Large volume ascites and right effusion are noted Likely paraesophageal varices are seen with likely gastric varicesalso noted Heterogeneous lobular appearance of the liver compatible with likely PAGE 1 Signed Report(CONTINUED) Name: CHARLES JUAREZ [facility] : 1965 Age/S: 56 / M [address] [facility] Unit #: [id number] Loc: [place] [address] Phys: Nathan Flores MD Acct: [id number] Dis Date: Status:REG ER PHONE #: [phone] Exam Date: 04/27/2022219 FAX #: [phone] Reason: ABDOMINAL PAIN,DISTENSION EXAMS: CPT CODE: [id number] CT ABD PELVIS W/CONT 27515 (Continued) cirrhosis. Multiple calcifications within the right lobe the liver may reflect prior treatment, recommend correlation with history. Adjacent heterogeneity is nonspecific and further evaluation MRI recommended Additional findings as detailed above at 0239 Reported and signed by: Catherine Vázquez M.D. CC: Nathan Flores MD Technologist:Vanessa Forrest RT(R) CTDI: DLP: Trnscb Date/Time: 04/27/2022 (238) [id number] Orig Print D/T: S: 04/27/2022 (9762) PAGE 2 Signed ReportURINALYSIS [id number] 02:26:00 Test Item Value Reference Range Interpretation Comments UA COLOR (test code = YELLOW YELLOW COLU) UA APPEARANCE (test Cloudy CLEAR A IS THE S AMPLE code = APPU) FROM ER OR L&D? IF THE ANSWER I S NO,PLEASE DOCUMENT TWO RN SIGNATURES HERE - by [id number] 04/27/22211 UA GLUCOSE DIPSTICK NEGATIVE mg/dL NEGATIVE (test code = DGLUU) UA BILIRUBIN DIPSTICK NEGATIVE mg/dL NEGATIVE (test code = BILU) UA KETONE DIPSTICK NEGATIVE mg/dL NEGATIVE (test code = KETU) UA SPECIFIC GRAVITY 1.027 1.001-1.035 (test code = SGU) UA BLOOD DIPSTICK >1.0 (3+) mg/dL NEGATIVE A (test code = EDILMA) UA PH DIPSTICK (test 5.5 5.0-8.0 code = CHERELLE) UA PROTEIN DIPSTICK 50 (1+) mg/dL NEGATIVE A (test code = PROU) UA UROBILINIOGEN Normal mg/dL NEGATIVE DIPSTICK (test code = URO) UA NITRITE DIPSTICK NEGATIVE NEGATIVE (test code = JOY) UA LEUKOCYTE ESTERASE 25 Keesha/uL NEGATIVE A W REFLEX (test code = (Trace) Keesha/uL LEUUR) UA WBC (test code = 11-20 per HPF 0-5 A WBCU) UA RBC (test code = 51-100 #/HPF 0-5 RBCU) UA EPITHELIAL CELLS None seen per Few (test code = EPIU) HPF UA BACTERIA (test FEW #/HPF NONE A code = BACU) UA MUCUS (test code = MANY #/LPF FEW A MUCU) UA YEAST (test code = FEW #/HPF NONE A YEASTU) Urine Source? Clean CatchBASIC METABOLIC [id number] 02:19:00 Test Item Value Reference Range Interpretation Comments SODIUM (test code = 133 mmol/L 136-145 L NA) POTASSIUM (test 5.0 mmol/L 3.5-5.1 N code = K) CHLORIDE (test code 102.0 mmol/L 98-107 N = CL) CARBON DIOXIDE 22.0 mmol/L 21-32 N (test code = CO2) ANION GAP (test 14.0 10-20 N code = GAP) GLUCOSE (test code 98 mg/dL 74-106 N = GLU) BLOOD UREA NITROGEN 20 mg/dL 7-18 H (test code = BUN) GLOMERULAR > 60 mL/min >=60 The Glomerular FILTRATION RATE Filtration R ate is a (test code = GFR) calculated parameterbased on serum Creatinin e, patient age and sex. GFR valuesless than 60 mL/min/1.73 squ are meters are nithin cative ofChronic Kidne y Disease. Values less than 15 mL/min/1.73squa re meters indicate Kidney failure. The calculation for GFR is based on the CK D-EPI (2020) calculat ion. This formulais race indifferent and is the recommended for surjit for GFRby the [facility] on for Adults.The GFR will not calculate i f the sex is unknown or if thepatient's ag e is <18 years. CREATININE (test 0.80 mg/dL 0.7-1.3 N code = CREAT) BUN/CREATININE 23.8 10-20 H RATIO (test code = BUN/CREA) CALCIUM (test code 7.9 mg/dL 8.5-10.1 L = CA) HEPATIC FUNCTION [id number] 02:19:00 Test Item Value Reference Range Interpretation Comments TOTAL PROTEIN (test 6.7 gram/dL 6.4-8.2 N code = PROT) ALBUMIN (test code = 2.2 g/dL 3.4-5.0 L ALB) GLOBULIN (test code = 4.5 gram/dL 2.7-4.2 H GLOB) ALBUMIN/GLOBULIN RATIO 0.5 0.75-1.50 L (test code = A/G) BILIRUBIN TOTAL (test 1.30 mg/dL 0.0-1.0 H code = BILT) BILIRUBIN DIRECT (test 0.50 mg/dL 0.0-0.20 H code = BILD) SGOT/AST (test code = 202 IUnit/L 15-37 H AST) SGPT/ALT (test code = 87 IUnit/L 12-78 H ALT) ALKALINE PHOSPHATASE 120 IUnit/L 45-117 H Note change in TOTAL (test code = reference range due ALKP) to change in reagent. [id number] 02:19:00 Test Item Value Reference Range Interpretation Comments LIPASE (test code = LIP) 74 U/L 12-57 H PROTHROMBIN [id number] 02:15:00 Test Item Value Reference Range Interpretation Comments PROTHROMBIN TIME 13.8 seconds 9.0-14.0 N PATIENT (test code = PTP) INTERNATIONAL NORMAL 1.2 0.8-1.2 N The the rapeutic range RATIO (test code = for oral INR) anticoagulant t herapy formost indicat ions is an internati onal normalized rati o (INR)of between 2.0 and 3.0. The recommended therapeutic INR range for various cli nical situations is l isted below: Clinical Situat ion INR range Pulmonary embol ism treatment (2.0-3.0)Venous thrombosis treatmentVenous thrombosis prophylaxis (hi gh risk surgery)Prevent ion of systemic emboli sm from: Acute myocardial infa rction Valvular heart disease Atrial fibrillation Mechanical pros thetic heart valves (2.5-3.5) IS PATIENT ON ANTICOAGULANTS? NTHROMBOPLASTIN TIME [id number] 02:15:00 Test Item Value Reference Range Interpretation Comments THROMBOPLASTIN TIME PARTIAL 29.0 seconds 23.0-37.0 N (test code = PTT) IS PATIENT ON ANTICOAGULANTS? NCBC W/O [id number] 01:40:00 Test Item Value Reference Range Interpretation Comments WHITE BLOOD CELL (test code = 3.7 K/mm3 4.5-12.5 L WBC) RED BLOOD CELL (test code = 3.01 mill/mm3 4.0-5.8 L RBC) HEMOGLOBIN (test code = HGB) 9.9 gram/dL 13.0-17.5 L HEMATOCRIT (test code = HCT) 30.3 % 42.0-52.0 L MEAN CELL VOLUME (test code = 100.7 fL 80-98 H MCV) MEAN CELL HGB (test code = MCH) 32.9 picogram 27.0-33.0 N MEAN CELL HGB CONCETRATION 32.7 gram/dL 33.0-36.0 L (test code = MCHC) RED CELL DISTRIBUTION WIDTH 15.7 % 11.6-16.2 N (test code = RDW) PLATELET COUNT (test code = 94 K/mm3 150-450 L PLT) MEAN PLATELET VOLUME (test code 10.9 fL 6.7-11.0 N = MPV) - XR CHEST 1 [id number] 01:29:00 [facility] ([facility])Name: CHARLES JUAREZ BARBARA : 1965 Sex: M FAX: Nathan Flores MD [place]: B St: REG Name: JOE JUAREZCONCEPCION JIMENEZ [facility] : 1965 Age/S: 56/M [address] Unit #: [id number] Loc: V.[place]CARMEN [place] [address] Phys: Nathan Flores MD Acct: [id number] Dis Date: Status: REG ER PHONE #: [phone] Exam Date: 04/27/2022 0110 FAX #: [phone] Reason: ABDOMINAL PAIN EXAMS: CPT CODE: [id number] XR CHEST 1 V [id number] EXAMINATION: - XR CHEST 1 V LOCATION: H61 INDICATION/CLINICAL HISTORY: ABDOMINAL PAIN COMPARISON: Chest x-ray 06/25/2014. TECHNIQUE: AP view of the chest. FINDINGS: LINES/DEVICE:None. CARDIOMEDIASTINAL SILHOUETTE: Cardiac silhouette isnormal in size. LUNGS/PLEURA: There is atelectasis in the right lung base and small right pleural effusion. There is no pneumothorax. UPPER ABDOMEN: Unremarkable. BONE/SOFT TISSUE: No acute fractures demonstrated. IMPRESSION: Small right pleural effusion and right basilar atelectasis. at 0129 Reported and signed by: Hillary Dixon M.D. CC: Nathan Flores MD Technologist: Sweetie Worthy RT(R) Trnscrd Date/Time/By: 04/27/2022 (0129) :By: [email or web address] Orig Print D/T: S: 04/27/2022 (0133) PAGE 1 Signed ReportHCV RNA SerPl [id number] 04:55:18 Test Item Value Reference Range Interpretation Comments HCV RNA SerPl [id number] IU/mL See_Comment H [Automated me ssage] LULU+probe-aCnc The system [facility] (test code = generated this result 22024-0) transmitted ref erence range: <=0. The reference range was not used to interpr et this result as normal/abnormal . This test utilizes FDA cleared BEST AmpliPrep/BEST TaqMan HCV test, v2.0 from [employer] which allows quantitation of viral loads between 15 copies/mL and 10,000,000 of plasma. Whenthe result is positive but <15 copies/mL of HCV RNA, the test will be reported as detected but less than 15 copies/mL". The BEST AmpliPrep/ BEST TaqMan HCV test, v2.0 is not intended for use as a screening test for the presence of HCV RNA in blood or as a diagnostic test to confirm the presence of HCV infection. This test is intended for use as an aid in the management of patients with HCV infection.HHSHepatitis 1995 Pnl [id number] 14:13:24 Test Item Value Reference Range Interpretation Comments HCV Ab SerPl Ql IA (test code = POSITIVE Negative A 72224-7) HHS
--- NOTE | 2022-07-02 16:17 | EDPHYS ---
Physician Documentation [facility] Name: Jay Sanchez Age: 56 yrs Sex: Male : 1965 Arrival Date: 07/02/2022 Time: 15:45 Bed IW1 Private MD: ED Physician Beni Carroll HPI: 07/02 15:57 This 56 yrs old Male presents to ER via Wheelchair with complaints of STOMACH DRAINED. jm 15:57 The patient presents with abdominal distention. This is a 56-year-old male with history jmm of cirrhosis of the liver and ascites the presents emerged department requesting drainage. Patient states that [facility] he has to go every 4 days for drainage. It has been 4 days since his last paracentesis. Denies fever. Denies pain denies shortness of breath.. Historical: - Allergies: 15:51 No Known Allergies; ll1 - PMHx: 15:51 liver problems; ll1 - Immunization history:: Adult Immunizations up to date. - Social history:: Smoking status: Patient reports the use of cigarette tobacco products, smokes one-half pack cigarettes per day. ROS: 15:57 Constitutional: Negative for fever, chills, and weight loss, Cardiovascular: Negative jmm for chest pain, palpitations, and edema, Respiratory: Negative for shortness of breath, cough, wheezing, and pleuritic chest pain. 15:57 Abdomen/GI: Positive for abdominal distension. 15:57 All other systems are negative. Exam: 15:57 Constitutional: This is a well developed, well nourished patient who is awake, alert, jmm and in no acute distress. Head/Face: atraumatic. Eyes: EOMI, no conjunctival erythema appreciated ENT: Moist Mucus Membranes Neck: Trachea midline, Supple Chest/axilla: Normal chest wall appearance and motion. Cardiovascular: Regular rate and rhythm. No edema appreciated Respiratory: Normal respirations, no respiratory distress appreciated 15:57 Back: Normal ROM Skin: General appearance color normal MS/ Extremity: Moves all extremities, no obvious deformities appreciated, no edema noted to the lower extremities Neuro: Awake and alert Psych: Behavior is normal, Mood is normal, Patient is cooperative and pleasant 15:57 Abdomen/GI: Inspection: distension, that is severe. Vital Signs: 15:52 BP 112 / 75; Pulse 63; Resp 18; Temp 97.1; Pulse Ox 99% on R/A; Weight 70.31 kg; Height ll1 5 ft. 10 in. ; Pain 9/10; 15:52 Body Mass Index 22.24 (70.31 kg, 177.8 cm) ll1 15:52 Pain Scale: Adult ll1 MDM: 15:59 Patient medically screened. [facility] 16:23 Differential diagnosis:. ED course: I discussed the patient's case with Dr. Grubbs. [facility] Will perform paracentesis tomorrow for the patient. I discussed this with the patient whom elected to go home and return tomorrow at 0800. 16:55 ED course: US requests ordering PT INR, CMP prior to paracentesis. . [facility] 16:55 Differential diagnosis: Ascites, liver cirrhosis, peritonitis. Data reviewed: vital [facility] signs, nurses notes. ED course: Patient is alert nontoxic in appearance NAD. Denies any pain. Patient will return tomorrow morning at 8 AM. Ultrasound did request coag labs along with CMP, LFTs, CBC, etc.. 07/02 15:57 Order name: IV Saline Lock [facility] 07/02 15:57 Order name: Labs collected and sent [facility] Administered Medications: No medications were administered Disposition: 16:55 Co-signature as Attending Physician, Beni Carroll MD I reviewed the patient's care rn provided by the Advanced Practice Provider and agree with the diagnosis and treatment plan. Disposition Summary: 07/02/22 16:17 Discharge Ordered Location: Home [facility] Condition: Stable [facility] Diagnosis - Other ascites [facility] Followup: [facility] - With: Private Physician - When: Tomorrow - Reason: Recheck today's complaints, Continuance of care, Re-evaluation by your physician Discharge Instructions: - Discharge Summary Sheet [facility] - Ascites [facility] Forms: - Medication Reconciliation Form [facility] - Thank You Letter [facility] - Antibiotic Education [facility] - Prescription Opioid Use [facility] Signatures: Dispatcher [employer] EDMS Neftaly Cavazos PA PA jmm Nieto, Roman, MD MD rn Lewis, Lynsay, RN RN ll1 Corrections: (The following items were deleted from the chart) 15:52 15:51 PMHx: liver rpoblems; ll1 ll1
--- NOTE | 2022-07-02 16:17 | ER ---
Nurse's Notes [facility] Name: Jay Sanchez Age: 56 yrs Sex: Male : 1965 Arrival Date: 07/02/2022 Time: 15:45 Bed IW1 Private MD: Diagnosis: Other ascites Presentation: 07/02 15:52 Chief complaint: Patient states: Needs abdomen drained, last drained four days ago. No ll1 fever. Coronavirus screen: Vaccine status: Patient reports receiving the 2nd dose of the covid vaccine. Client denies travel out of the [place] in the last 14 days. At this time, the client does not indicate any symptoms associated with coronavirus-19. Ebola Screen: Patient denies travel to an Ebola-affected area in the 21 days before illness onset. Initial Sepsis Screen: Does the patient meet any 2 criteria? No. Patient's initial sepsis screen is negative. Does the patient have a suspected source of infection? Yes: Acute abdominal pain. Risk Assessment: Do you want to hurt yourself or someone else? Patient reports no desire to harm self or others. Onset of symptoms was July 02, 2022. 15:52 Method Of Arrival: Wheelchair ll1 15:52 Acuity: FENG 3 ll1 Triage Assessment: 15:54 General: Appears uncomfortable, Behavior is cooperative, appropriate for age. Pain: ll1 Complains of pain in abdomen Quality of pain is described as aching, throbbing. GI: Reports lower abdominal pain, upper abdominal pain, bloating. Historical: - Allergies: 15:51 No Known Allergies; ll1 - PMHx: 15:51 liver problems; ll1 - Immunization history:: Adult Immunizations up to date. - Social history:: Smoking status: Patient reports the use of cigarette tobacco products, smokes one-half pack cigarettes per day. Screenin:26 [facility] ED Fall Risk Assessment (Adult) Confusion or Disorientation Yes (5 pts) ll1 Impaired Gait Yes (1 pt) Mobility Assist Device Used Yes (1 pt) Score/Fall Risk Level 3 or more points = High Risk Oriented to surroundings, Maintained a safe environment, Educated pt \T\ family on fall prevention, incl call for assistance when getting out of bed, Hourly rounding (assess needs \T\ fall precautionary measures) done, Used ambulatory aids as needed (educated on \T\ assisted with), Implemented a Fall Risk Plan of Care, Remained with patient while ambulating. Abuse screen: Denies threats or abuse. Nutritional screening: No deficits noted. Tuberculosis screening: No symptoms or risk factors identified. Assessment: 16:26 Reassessment: No changes from previously documented assessment. Patient and/or family ll1 updated on plan of care and expected duration. Pain level reassessed. Patient is alert, oriented x 3, equal unlabored respirations, skin warm/dry/pink. Vital Signs: 15:52 BP 112 / 75; Pulse 63; Resp 18; Temp 97.1; Pulse Ox 99% on R/A; Weight 70.31 kg; Height ll1 5 ft. 10 in. ; Pain 9/10; 15:52 Body Mass Index 22.24 (70.31 kg, 177.8 cm) ll1 15:52 Pain Scale: Adult ll1 ED Course: 15:46 Patient arrived in ED. ts1 15:51 Neftaly Cavazos PA is [facility]. jess 15:51 Beni Carroll MD is Attending Physician. [facility] 15:51 Arm band placed on. ll1 15:53 Triage completed. ll1 16:26 Patient has correct armband on for positive identification. Bed in low position. Call ll1 light in reach. Cardiac monitoring not applicable on this patient. 16:26 No provider procedures requiring assistance completed. Patient did not have IV access ll1 during this emergency room visit. Administered Medications: No medications were administered Medication: 16:27 VIS not applicable for this client. ll1 Outcome: 16:17 Discharge ordered by . [facility] 16:26 Discharged to home via wheelchair. ll1 16:26 Condition: stable 16:26 Discharge instructions given to patient, Instructed on discharge instructions, follow up and referral plans. Demonstrated understanding of instructions, follow-up care. 16:27 Patient left the ED. ll1 Signatures: Neftaly Cavazos PA PA jmm Lewis, Lynsay, RN RN ll1 Yenny Saunders PAS PAS ts1 Corrections: (The following items were deleted from the chart) 15:52 15:51 PMHx: liver rpoblems; ll1 ll1
[2022-07-02 17:38] VITALS: BP 112/75; TEMP 97.1; O2SAT 99
== END 2022-07-02 16:27 | disposition home or self-care (01) ==
LOC: ER 15:45
DX: R18.8 Other ascites (principal); F17.210 Nicotine dependence, cigarettes, uncomplicated
CPT/HCPCS: 99282

== ENCOUNTER 2022-07-03 08:06 | Emergency (ER) | payer SELFPAY ==
--- OUTSIDE RECORDS SUMMARY | 2022-07-03 08:11 | XMS REPORT | Continuity of Care Document ---
:1965 Author Organization [facility] t Address [address] [place] [address] [address] [place] [address] Care Team Providers Name Role Phone ANGY [...] Clinician Unavailable CARLI IBARRA Attending Clinician Unavailable BENIGNO MANSFIELD Attending Clinician Unavailable Jessica Anthony Attending Clinician Unavailable Jen Martinez Attending Clinician Unavailable LUCIEN PERDUE Attending Clinician Unavailable ANDREW MCCAULEY Attending Clinician Unavailable MASON KOHLI Attending Clinician Unavailable VIJI HARPER Attending Clinician Unavailable RICHARD FARMER Attending Clinician Unavailable KELBY FARRIS Attending Clinician Unavailable FRANCISCO GUTIERREZ Attending Clinician Unavailable ZACHARIAH MILTON Attending Clinician [...] Date Clinician No Known DA Active U [facility] Allergie 06-25 [facility] 00:00: [address] Medications This patient has no known medications. Procedures Procedure Date / Time Performed Performing Clinician [facility] e [id number] 2022-06-19 00:00:00 [facility] En[facility] Start End Encounter Admission Attending Care Care Encounter Source Date/Time Date/Time Type Type Clinicians Facility Department ID 2022-07-11 [facility] [id number] [place] 00:00:00 [facility] 2022-06-18 Emergency [facility] [id number] KATHY - 13:56:59 [facility] 2022-06-05 Inpatient [facility] [id number] H arris 10:27:11 [facility] 2022-05-31 Inpatient [facility] [id number] H arr[place] 15:37:06 [facility] 2022-05-29 Emergency [facility] [id number] KATHY - 22:48:10 [facility] 2022-05-06 Emergency [facility] [id number] KATHY - 22:29:24 [facility] 2022-04-29 Emergency [facility] [id number] KATHY - 12:36:43 [facility] 2022-04-27 Emergency [facility] [id number] KATHY - 02:30:55 [facility] 2022-04-22 Emergency [facility] [id number] KATHY - 15:47:47 [facility] 2022-03-14 Emergency [facility] [id number] KATHY - 01:25:19 [facility] 2022-03-11 Emergency [facility] [id number] K[place] - 20:16:44 [facility] 2022-03-08 Emergency [facility] [id number] KATHY - 21:42:06 [facility] 2022-07-13 2022-07-13 Outpatient [facility] [id number] [place] 00:00:00 00:00:00 [facility] 2022-07-06 2022-07-06 Outpatient [facility] [id number] [place] 00:00:00 00:00:00 [facility] 2022-07-06 2022-07-06 Outpatient [facility] [id number] [place] 00:00:00 00:00:00 [facility] 2022-06-19 2022-06-30 Inpatient EM IBAN HoytWU INTE.[id number] [facility] 02:05:00 16:28:00 Stefany 24 [facility] 2022-06-29 2022-06-29 Outpatient [facility] [id number] [place] 00:00:00 00:00:00 [facility] 2022-06-22 2022-06-22 Outpatient [facility] [id number] [place] 00:00:00 00:00:00 [facility] 2022-06-18 2022-06-19 Emergency 1 [facility] [id number] [place] 13:18:00 00:56:00 Greg PARKER [facility] 2022-06-19 2022-06-19 Outpatient [facility] [id number] [place] 00:00:00 00:00:00 [facility] 2022-06-19 2022-06-19 Outpatient DUARTE, [facility] [id number] [place] 00:00:00 00:00:00 [facility] 2022-06-18 2022-06-18 Emergency [facility] [id number] [place] 15:04:34 15:54:15 [facility] 2022-06-18 2022-06-18 Emergency [facility] [id number] [place] 15:11:48 15:36:36 [facility] 2022-06-18 2022-06-18 Emergency [facility] [id number] [place] 13:46:12 13:49:47 [facility] 2022-06-18 2022-06-18 Emergency [facility] [id number] [place] 13:35:53 13:46:02 [facility] 2022-06-15 2022-06-15 Outpatient ROBERTH, [facility] [id number] [place] 10:53:05 15:43:00 [facility] 2022-06-13 2022-06-13 In[facility] [id number] [place] 08:05:12 09:51:28 GARETT [facility] 2022-06-11 2022-06-11 Outpatient ANDI, [facility] [id number] [place] 00:00:00 00:00:00 [facility] 2022-06-08 2022-06-08 Outpatient IBIS, [facility] [id number] [place] 08:38:33 23:59:00 [facility] 2022-05-31 2022-06-05 [facility] [id number] [place] 19:37:00 19:02:00 [facility] 2022-06-01 2022-06-01 Outpatient [facility] [id number] [place] 00:00:00 00:00:00 [facility] 2022-05-30 2022-05-31 Inpatient 1 DAY [facility] [id number] [place] 02:09:00 17:30:00 [facility] 2022-05-30 2022-05-30 Inpatient [facility] [id number] [place] 17:08:50 17:46:28 [facility] 2022-05-30 2022-05-30 [facility]patient [facility] [id number] [place] 00:00:00 00:00:00 [facility] 2022-05-24 2022-05-24 Outpatient FARIDA CASTILLO [facility] [id number] [place] 10:29:29 13:29:00 [facility] 2022-05-21 2022-05-21 Outpatient [facility] [id number] [place] 00:00:00 00:00:00 [facility] 2022-05-21 2022-05-21 Outpatient [facility] [id number] [place] 00:00:00 [facility]:00:00 [facility] 2022-05-17 [facility] [id number] [place] 13:32:21 23:59:00 [facility] 2022-05-11 2022-05-11 Outpatient LEEANN, [facility] [id number] [place] 09:51:06 13:46:00 [facility] 2022-05-11 2022-05-11 Outpatient [facility] [id number] [place] 00:00:00 00:00:00 ANGY Garza [facility] 2022-05-07 2022-05-07 [facility] [id number] [place] 10:32:00 12:43:00 [facility] 2022-05-01 2022-05-01 [facility] [id number] [place] 00:13:00 03:37:00 [facility] 2022-04-29 2022-04-29 Emergency [facility] [id number] [place] 14:59:00 16:14:00 [facility] 2022-04-27 2022-04-27 Inpatient EM [id number] [facility] 00:02:00 12:30:00 Jessica 15 [facility] 2022-04-27 2022-04-27 Outpatient Michelle, [facility] G[id number] [facility] 06:25:00 06:25:[address] 2022-04-27 2022-04-27 Outpatient [facility] [id number] [place] 00:00:00 00:00:00 ANGY Garza [facility] 2022-04-22 2022-04-22 Emergency [facility] [id number] [place] 17:04:00 17:22:00 [facility] 2022-04-17 2022-04-17 Outpatient AZIZ, [facility] [id number] [place] 06:51:20 11:45:00 [facility] 2022-04-17 2022-04-17 Outpatient PARISA, [facility] [id number] [place] 00:00:00 00:00:00 [facility] 2022-04-13 2022-04-13 Outpatient [facility] [id number] [place] 00:00:00 00:00:00 ANGY Garza [facility] 2022-03-30 2022-03-30 Outpatient [facility] [id number] [place] 09:11:54 23:59:00 ANGY Garza [facility] 2022-03-20 2022-03-20 Outpatient DONAL, [facility] [id number] [place] 00:00:00 00:00:00 ANGY Garza [facility] 2022-03-16 2022-03-16 Outpatient [facility] [id number] [place] 10:23:24 13:32:00 [facility] 2022-03-14 2022-03-14 Emergency [facility] [id number] [place] 03:21:00 06:46:00 [facility] 2022-03-14 2022-03-14 Outpatient [facility] [id number] [place] 00:00:00 [facility]:00[facility]-12 2022-03-12 Outpatient [facility] [id number] [place] 05:16:15 23:59:00 Health 2022-03-11 2022-03-12 [facility] [id number] [place] 21:52:00 04:44:00 [facility] 2022-03-12 2022-03-12 Outpatient [facility] [id number] [place] 00:00:00 00:00:00 [facility] 2022-03-11 2022-03-11 Emergency [facility] [id number] [place] 23:33:52 23:52:08 [facility] 2022-03-08 2022-03-09 Emergency [facility] [id number] [place] 21:42:00 00:27:00 [facility] 2022-03-08 2022-03-08 Emergency [facility] [id number] [place] 22:11:08 22:31:59 [facility] 2022-03-06 2022-03-06 Outpatient [facility] [id number] [place] 00:00:00 15:45:00 ANGY Garza [facility] 2022-03-06 2022-03-06 Emergency [facility] [id number] [place] 11:52:00 12:00:00 [facility] 2022-03-01 2022-03-01 Outpatient [facility] [id number] [place] 08:58:34 10:35:00 ANGY Garza [facility] 2022-02-27 2022-02-27 [facility] [id number] [place] 10:08:00 15:57:00 [facility] 2022-02-21 2022-02-21 Outpatient 3 [facility] [id number] [place] 08:10:54 08:14:05 [facility] 2022-02-21 Outpatient [facility] [id number] [place] 00:00:00 00:00:00 [facility]22-[facility]-20 2022-02-20 Outpatient [facility] [id number] [place] 00:00:00 00:00:00 [facility] 2022-02-16 2022-02-16 Outpatient [facility] [id number] [place] 10:22:02 11:34:55 ANGY Garza [facility] 2020-10-20 2020-10-20 Outpatient [facility] [id number] [place] 00:00:00 00:00:00 [facility] 2020-10-07 2020-10-07 Outpatient [facility] [id number] [place] 00:00:00 00:00:00 [facility] 2020-09-06 2020-09-06 Out[facility] [id number] [place] 12:40:23 13:48:28 ZACHARIAHMITCHEL [facility] 2020-09-06 2020-09-06 Outpatient [facility] [id number] [place] 13:41:53 13:45:37 [facility] 2020-09-06 2020-09-06 Outpatient [facility] [id number] [place] 00:00:00 00:00:00 [facility] 2020-07-26 2020-07-26 Outpatient [facility] [id number] [place] 00:00:00 00:00:00 ZACHARIAHMITCHEL [facility] 2020-04-26 2020-04-26 Outpatient [facility] [id number] 69 [place] 07:58:41 23:59:00 [facility] Results Test Description Test Time Test Comments Results Result Comments Source GLUCOSE BEDSIDE TESTING 2022-06-30 07:44:00 Test Item Value Reference Range Interpretation Comme nts GLUCOSE BEDSIDE TESTING (test code = GLUBED) 125 MG/DL 60-99 H - PARACENTESIS W [id number] 15:47:00 [facility] 1965 Sex: M Patient Name: CHARLES JUAREZ Unit No: [id number] EXAMS: CPT CODE: [id number] PARACENTESIS W IMAGE 60373 B2 Ultrasound-guided paracentesis CLINICAL INDICATION: Ascites MEDICATIONS: 10 mL subcutaneous Lidocaine 2% BOOKKEEPING MACHINE MECHANIC: Hamilton Dominique M.D. TECHNIQUE: Transverse real time images were obtained through the abdomen. B-mode grayscale, color Doppler, and spectral Doppler images are obtained. The risks and benefits of this procedure were discussed and informed written consent was obtained prior to performing theprocedure. The abdomen was then prepped and draped in usual sterile fashion. Limited ultrasound of the abdomen was performed. Under ultrasound guidance, a 5 [place] centesis needle was advanced into theperitoneal fluid collection and catheter advanced into the [...] MD Technologist: Ela Joyner RDMS() Transcrpt Date/Tm/Trnsp: 06/28/2022 (1547) [email or web address] Orig Print D/T: S: 06/28/2022 (4800) [facility] NAME: CHARLES JUAREZ [address] [address] PHYS: Samuel Charles MD R1 [place] [address] : 1965 AGE: 56 SEX: M LOC: Z.363 A PHONE #: [phone] EXAM DATE: 06/28/2022 STATUS: ADM IN FAX #: [phone] RADIOLOGY NO: PAGE 1 Signed Report PROTHROMBIN [id number] 13:54:00 Test Item Value Reference Range Interpretation [...] va lve, or acute myocar dial infarction. 2. 0 - 3.0 3. Jack Frame Tender al prosthesis hear t valves, recurre nt systemic emboli sm. 3.0 - 4.5 [id number] 13:49:00 Test Item Value Reference Range Interpretation Comments AMMONIA (test code = AMM) 40 mcMOL/L 9-30 H - PARACENTESIS W [id number] 12:49:00 [facility] : 1965 Sex: M Patient Name: CHARLES JUAREZ Unit No: [id number] EXAMS: CPT CODE: [id number] PARACENTESIS W IMAGE 09982 B2 Ultrasound-guided paracentesis CLINICAL INDICATION: Ascites MEDICATIONS: 10 mL subcutaneous Lidocaine 2% BOOKKEEPING MACHINE MECHANIC: Hamilton Dominique M.D. TECHNIQUE: Transverse real time [...] was performed. Under ultrasound guidance, a 5 [place] centesis needle was advanced into the peritoneal fluid collection and catheter advanced into the collection over the needle, and needle was removed. The catheter was connected to Vacutainer bottles and 5300 mL fluid was removed. There were no immediate complications of the procedure. No significant blood loss. Patient tolerated procedurewell. FINDINGS: Large volume free peritoneal fluid demonstrated on ultrasound. IMPRESSION: Successful ultrasound guided paracentesis. 5300 mL of fluid was removed. at 1243 Reported and signed by: Hamilton Dominique MD CC: Samuel Ibrahim MD; Stefany Hoyt MD Technologist: Ela Joyner RDMS(AB) Transcrpt Date/Tm/Trnsp: 06/26/2022 (1581) [email or web address] Orig Print D/T: S: 06/26/2022 (8489) [facility] NAME: CHARLES JUAREZ [id number] [address] PHYS: Samuel Zuluaga MD [address] [address] : 1965 AGE: 56 SEX: M LOC: Z.363 A PHONE #: [phone] EXAM DATE: 06/26/2022 STATUS: ADM IN FAX #: [phone] RADIOLOGY NO:PAGE 1 Signed Report- XR CHEST [id number] 11:39:00 [facility] : 1965 Sex: M Patient Name: CHARLES JUAREZ Unit No: [id number] EXAMS: CPT CODE: [id number] XR CHEST 1V 68246 B2 TIME OFSTUDY: 06/26/2022 9:35 AM REASON [...] Samuel Ibrahim MD; Stefany Hoyt MD Technologist: IVONE Joseph, RT(R) Transcrpt Date/Tm/Trnsp: 06/26/2022 (1139) [email or web address] Orig Print D/T: S: 06/26/2022 (4982) [facility] NAME: CHARLES JUAREZ [id number] [address] PHYS: Samuel Charles MD R[address] [place] [address] : 1965 AGE: 56 SEX: M LOC: Z.363 A PHONE #: [phone] EXAM DATE:06/26/2022 STATUS: ADM IN FAX #: [phone] RADIOLOGY NO: PAGE 1 Signed ReportGLUCOSE BEDSIDE [id number] 07:34:00 Test Item Value Reference Range Interpretation Comments GLUCOSE BEDSIDE TESTING (test code = 75 MG/DL 60-99 N GLUBED) COMPREHENSIVE METABOLIC [id number] 06:43:00 Test Item Value Reference Range Interpretation [...] the recommended for surjit for GFRby the [facility] for Ad[facility].The GFR will not [...] PHOSPHATASE (test code = ALKP) GLUCOSE BEDSIDE [id number] 20:23:00 Test Item Value Reference Range Interpretation Comments GLUCOSE BEDSIDE TESTING (test code 132 MG/DL 60-99 H = GLUBED) CBC W/AUTO [id number] 09:51:00 Test Item Value Reference Range Interpretation [...] = 0.00 K/mm3 0.0-0.1 N NRBC#) DIFFERENTIAL [id number] 09:51:00 Test Item Value Reference Range Interpretation Comments RBC MORPHOLOGY REQUIRED (test code ABNORMAL = RBCM) PLATELET ESTIMATE (test code = DECREASED ADEQUATE PLTEST) PLATELET MORPHOLOGY (test code = NORMAL NORMAL PLTMORPH) POIKILOCYTOSIS (test code = POIK) FEW NONE ANISOCYTOSIS (test code = ANISO) MODERATE NONE TARGET CELLS (test code = TGT) FEW NONE [id number] 05:42:00 Test Item Value Reference Range Interpretation Comments AMMONIA (test code = AMM) 72 mcMOL/L 9-30 H COMPREHENSIVE METABOLIC [id number] 05:39:00 Test Item Value Reference Range Interpretation [...] the recommended for surjit for GFRby the [facility] for Adults.The GFR will not [...] mg/dl Bu/14.2mg /dl +0.38mg/dl +0.2 5mg/dlBuBc 5mg/dl Bc/0mg/ dl +0.25mg/dl +0.1 5mg/dlBuBc 3.5mg/dl Bc/2.8 mg/dl +0.25mg/dl +0.2 3mg/dl SGOT/AST (test 228 UNITS/L 17-59 H code = AST) SGPT/ALT (test 76 UNITS/L 0-49 H code = ALT) ALKALINE 128 UNITS/L 38-126 H PHOSPHATASE (test code = ALKP) CBC W/AUTO [id number] 08:37:00 Test Item Value Reference Range Interpretation [...] K/mm3 0.0-0.1 N code = NRBC#) DIFFERENTIAL [id number] 08:37:00 Test Item Value Reference Range Interpretation [...] code = FEW NONE ACAN) COMPREHENSIVE METABOLIC [id number] 06:30:00 Test Item Value Reference Range Interpretation [...] the recommended for surjit for GFRby the [facility].The GFR will not [...] 6.0 g /dl +0.50 +0.45 5 mg/dl 6.0 g/dl +0.73 +0.65 2.5 mg/dl 8.0 g/dl [...] 38-126 N PHOSPHATASE (test code = ALKP) [id number] 06:26:00 Test Item Value Reference Range Interpretation Comments AMMONIA (test code = AMM) 44 mcMOL/L 9-30 H CBC W/AUTO [id number] 10:13:00 Test Item Value Reference Range Interpretation [...] = 0.00 K/mm3 0.0-0.1 N NRBC#) DIFFERENTIAL [id number] 10:13:00 Test Item Value Reference Range Interpretation Comments RBC MORPHOLOGY REQUIRED (test code ABNORMAL = RBCM) PLATELET ESTIMATE (test code = DECREASED ADEQUATE PLTEST) PLATELET MORPHOLOGY (test code = NORMAL NORMAL PLTMORPH) ANISOCYTOSIS (test code = ANISO) MODERATE NONE COMPREHENSIVE METABOLIC [id number] 07:48:00 Test Item Value Reference Range Interpretation [...] the recommended for surjit for GFRby the [facility] for [facility].The GFR will not [...] 38-126 N PHOSPHATASE (test code = ALKP) [id number] 07:48:00 Test Item Value Reference Range Interpretation Comments PHOSPHOROUS (test code = PHOS) 2.4 MG/DL 2.5-4.5 L [id number] 07:48:00 Test Item Value Reference Range Interpretation Comments MAGNESIUM (test code = MAG) 2.1 MG/DL 1.6-2.3 N - PARACENTESIS W [id number] 16:00:00 [facility] 1965 Sex: M Patient Name: CHARLES JUAREZ Unit No: [id number] EXAMS: CPT CODE: [id number] PARACENTESIS W IMAGE 61765 EXAMINATION: IMAGE-GUIDED PARACENTESIS. LOCATION: B2. HISTORY: Ascites. SEDATION: The patient did not require conscious sedation for the procedure. ANTIBIOTICS: None. Not indicated. CONTRAST: None. TECHNIQUE: The risks, benefits, and alternatives were discussed and informed consent was obtained. Priorto beginning the procedure, [place] Protocol was used to confirm the patient's identity and planned procedure. Sterile barriers including cap, mask, hand hygiene, sterile gloves, sterile drape and cutaneous antisepsis were used. The patient's abdomen was examined with ultrasound and a suitable pocket of ascitic fluid in the right lower quadrant was identified. The overlying skin was anesthetized with lidocaine. Using real-time ultrasound guidance, a One-Step needle was advanced into the ascitic fluid. Approximately 3,100 mL of serosanguineous fluid was drained. Samples were sent for lab analysis. At the conclusion of the procedure, the catheter was removed and a sterile dressing applied to thesite. ESTIMATED BLOOD LOSS: Less than 30 milliliters. COMPLICATIONS: None. DISCHARGED TO: Performed at bedside in ICU. FINDINGS: Ultrasound demonstrated a moderate amount of ascitic fluid. IMPRESSION: Successful image-guided paracentesis. machine operator general: Zayda Nicholas PA-C. at 1600 Reported and signed by: Tala Welch MD [facility] NAME:CHARLES JUAREZ [address] [address] PHYS: Samuel Charles MD [address] [address] : 1965 AGE: 56 SEX: M LOC: Z.I14 A PHONE #: [phone] EXAM DATE: 06/22/2022 STATUS: ADM IN FAX #: [phone] RADIOLOGY NO: PAGE 1 Signed Report (CONTINUED) Patient Name: CHARLES JUAREZ Unit No: [id number] EXAMS: CPT CODE: [id number] PARACENTESIS W IMAGE 34530 (Continued) CC: Samuel Ibrahim MD; Ethan Cerda MD Technologist: Rehana Becker (RDMS AB OB) Transcrpt Date/Tm/Trnsp: 06/22/2022 (1600) t.SDR.PR7 Orig Print D/T: S: 06/22/2022 (1603) [facility] NAME: CHARLES JUAREZ [id number] [address] PHYS: Samuel Charles MD R[address] [place] [address] : 1965 AGE: 56 SEX: M LOC: Z.I14 A PHONE #: [phone] EXAM DATE: 06/22/2022 STATUS: ADM IN FAX#: [phone] RADIOLOGY NO: PAGE 2 Signed ReportHEPARIN INDUCED [id number] 13:39:00 Test Item Value Reference Range Interpretation [...] the 4T score an d the 2013 [place] [employer] yof Hematology guidelines. NEG ATIVE results [...] this result as janelle l/abnormal. CBC W/AUTO [id number] 12:58:00 Test Item Value Reference Range Interpretation [...] = 0.00 K/mm3 0.0-0.1 N NRBC#) DIFFERENTIAL [id number] 12:58:00 Test Item Value Reference Range Interpretation Comments RBC MORPHOLOGY REQUIRED (test code ABNORMAL = RBCM) PLATELET ESTIMATE (test code = DECREASED ADEQUATE PLTEST) PLATELET MORPHOLOGY (test code = NORMAL NORMAL PLTMORPH) ANISOCYTOSIS (test code = ANISO) MODERATE NONE GLUCOSE BEDSIDE [id number] 11:32:00 Test Item Value Reference Range Interpretation Comments GLUCOSE BEDSIDE TESTING (test code = 92 MG/DL 60-99 N GLUBED) COMPREHENSIVE METABOLIC [id number] 07:18:00 Test Item Value Reference Range Interpretation [...] the recommended for surjit for GFRby the [facility]ney Foundation for Adults.The GFR will not [...] anemia ) with specific assays on the [employer] 5600 of which Total Protein is one [...] 38-126 N PHOSPHATASE (test code = ALKP) [id number] 07:18:00 Test Item Value Reference Range Interpretation Comments MAGNESIUM (test code = MAG) 2.0 MG/DL 1.6-2.3 N HGB [id number] 05:56:00 Test Item Value Reference Range Interpretation Comments HEMOGLOBIN (test code = HGB) 9.3 G/DL 12.4-16.7 L HEMATOCRIT (test code = HCT) 26.7 % 35.9-49.5 L GLUCOSE BEDSIDE [id number] 20:00:00 Test Item Value Reference Range Interpretation Comments GLUCOSE BEDSIDE TESTING 107 MG/DL 60-99 H Marli manueljaya Nurse~ (test code = GLUBED) CYTOLOGY NON [id number] 16:59:00 Test Item Value Reference Range Interpretation Comments CYTOLOGY NON LATIN DANCE INSTRUCTOR (test code = CR) R UN DATE: 06/27/22 [facility] PAGE 1 RUN TIME: 1129 Specimen Inquiry RUN USER: INTERFACE P ATIENT: CHARLSE JUAREZ [facility] U #: [id number] AGE/SX: 56/M ROOM: [facility] RE06/19/22REG DR: Stefany Hoyt MD : [birth year] BED: A DIS: STATUS: ADM IN TLOC: SPEC #: [id number] RECD: 06/19/22 STATUS: RICARDO BABIN #: [id number] RACHEL: 06/19/22- DR: Ethan Cerda MD ENTERED: 06/19/22 SP TYPE: CYTO NGYN OTHR DR: No Primary or Family Physician Self Referred Rosenda Foley MD R2 Yoselin Beaver MD R3 Samuel Ibrahim MD R1 Leif Wilson Poyan MDORDERED: 99334, 90591, ANATOMIC SPEC, SPECIMEN TRACK COPIES TO: No Primary or Family Physician Self Referred Rosenda Foley MD R2 [address] [place] [address] Yoselin Beaver MD R3 [address] [place] [address] Samuel Ibrahim MD R1 [address] [place] [address] Leif Wilson DO [address] [place] [address] [email or web address] Tala Welch MD [address] [facility] [address] [place] [address] [place] [address] [facility] [address] [place] [address] PROCEDURES: 60335 (06/21/22-1299) 28678 (06/21/22) CONTINUED ON NEXT PAGE R UN DATE: 06/27/22 [facility] PAGE 2 RUN TIME: 1129 Specimen Inquiry RUN USER: INTERFACE S PEC #: [id number]:SCOTT:[id number] PATIENT: CHARLES JUAREZ #[id number] (Continued) SPECIMEN TRACK (06/19/22-1533) TISSUES: A. PARACENTESIS FLUID - PARACENTESIS ADDENDUM [...] tissue processing and slide preparation performed at [employer],[id number] , [place] [address] Unless gross only, the diagnosis is based [...] ON NEXT PAGE R UN DATE: 06/27/22 [facility] - [facility] PAGE 3 RUN TIME: 1129 Specimen Inquiry RUN USER: INTERFACE S PEC #: [id number]:SCOTT:[id number] PATIENT: CHARLES JUAREZ #[id number] (Continued) MICROSCOPIC DESCRIPTION Microscopic examination is performed on all specimens and the findings are incorporatedinto the final diagnosis. Please see diagnosis for the findings. CLINICAL INFORMATION Ascites; history of cirrhosis and possible hepatocarcinoma. Signed SIGNATURE ON FILE Santiago Burden 06/21/22 1659 END OF REPORT - CT ABD PELVIS W/O [id number] 15:50:00 [facility] 1965 Sex: M Patient Name: CHARLES JUAREZ Unit No: [id number] EXAMS: CPT CODE: [id number] CT ABD PELVIS W/O CONT 23026 EXAMINATION: - CT ABD PELVIS W/O CONT. LOCATION: B2. HISTORY: r/o abdominal bleed. COMPARISON: CTabdomen and pelvis dated 04/27/2022. TECHNIQUE: CT abdomen [...] the gallbladder. The spleen is enlarged, measuring 18.5 cm in length. The noncontrast appearance of the [...] hypertension with splenomegaly and small gastroesophageal varices. 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 Cholelithiasis. Other findings as described. at 1550 Reported and signed by: Tala Welch MD CC: Samuel Ibrahim MD; Ethan Cerda MD Technologist: Ngozi Mullen (RT); Dorothy Aly, CTDI: DLP: Trnscrpt: 06/21/2022 (1550) t.SDR.PR7 [facility] NAME: CHARLES JUAREZ [address] [address] PHYS: Samuel Charles MD [id number] : 1965 AGE: 56 S EX: M LOC: Z.I14 A PHONE #: [phone] EXAM DATE: 06/21/2022 STATUS: ADM INFAX #: [phone] RAD #: D/C DT PAGE 2 Signed Report Patient Name: CHARLES JUAREZ Unit No: [id number] EXAMS: CPT CODE: [id number] CT ABD PELVIS W/O CONT 19248 (Continued) Orig Print D/T: S: 06/21/2022 (1554) [facility] NAME: CHARLES JUAREZ [address] [address] PHYS: Samuel Charles MD [address] [place] [address] : 1965 AGE: 56 SEX: M LOC: Z.I14 A PHONE #: [phone] EXAM DATE: 06/21/2022 STATUS: ADM IN FAX #: [phone] RAD #: D/C DT PAGE 3 Signed [id number] 07:23:00 Test Item Value Reference Range Interpretation Comments AMMONIA (test code = AMM) 32 mcMOL/L 9-30 H "TO BE COLLECTED BY NURSE"NOTIFIED RN: BRYON COLON 06/21/22 AT 0631 BY Aguilar Teresa to Instructional Design Manager: Please add to blood already in the lab if possibleSpecimen comments: please add to blood already in the lab if possibleCBC W/O [id number] 06:43:00 Test Item Value Reference Range Interpretation [...] K/mm3 0.0-0.1 N code = NRBC#) DIFFERENTIAL [id number] 06:43:00 Test Item Value Reference Range Interpretation [...] code = ALEIDA) FEW NONE BASIC METABOLIC [id number] 04:28:00 Test Item Value Reference Range Interpretation [...] the recommended for surjit for GFRby the [facility] Kidney Foundati on for Adults.The GFR will not calculate if th e sex is unknown or if thepatient's ag e is <18 years. CREATININE (test 1.20 MG/DL 0.66-1.25 N code = CREAT) CALCIUM (test code = 8.8 MG/DL 8.4-10.2 N CA) [id number] 04:28:00 Test Item Value Reference Range Interpretation Comments MAGNESIUM (test code = MAG) 2.2 MG/DL 1.6-2.3 GLUCOSE BEDSIDE [id number] 21:27:00 Test Item Value Reference Range Interpretation Comments GLUCOSE BEDSIDE TESTING (test code 122 MG/DL 60-99 H = GLUBED) URINALYSIS [id number] 20:20:00 Test Item Value Reference Range Interpretation [...] = UACULT) SOURCE OF URINE: CLEAN CATCHUA [id number] 20:20:00 Test Item Value Reference Range Interpretation Comments UA RBC (test code = RBCU) 50-100 RBC/HPF 0-3 A UA WBC (test code = XWBCU) 3-5 WBC/HPF 0-5 UA EPITHELIAL CELLS (test code FEW EPI/HPF FEW = EPIU) UA BACTERIA (test code = FEW NONE XBACU) SOURCE OF URINE: CLEAN CATCHGLUCOSE BEDSIDE [id number] 16:41:00 Test Item Value Reference Range Interpretation Comments GLUCOSE BEDSIDE TESTING (test code = 99 MG/DL 60-99 N GLUBED) HGB [id number] 13:10:00 Test Item Value Reference Range Interpretation Comments HEMOGLOBIN (test code = HGB) 7.2 G/DL 12.4-16.7 L HEMATOCRIT (test code = HCT) 21.1 % 35.9-49.5 L GLUCOSE BEDSIDE [id number] 12:55:00 Test Item Value Reference Range Interpretation Comments GLUCOSE BEDSIDE TESTING (test code 105 MG/DL 60-99 H = GLUBED) - XR CHEST [id number] 08:25:00 [facility] : 1965 Sex: M Patient Name: CHARLES JUAREZ Unit No: [id number] EXAMS: CPT CODE: [id number] XR CHEST 1V 43073 Location Code: S17 EXAMINATION: - XR CHEST 1V CLINICAL INDICATION: Male, 56 years year old with On Ventilator COMPARISON: Chest radiograph June 19, 2022 FINDINGS: Single view(s) of the chest submitted. Support Devices: Stable position of the lines and tubes. Heart: Cardiac silhouette is stable in size. Mediastinum: Mediastinal contours are unchanged. Lungs: Pulmonary vessels are normal in size. No evidence offocal consolidation. Pleura: No pleural effusion is identified. No pneumothorax is present. Bones: Visualized skeleton is stable in appearance. IMPRESSION: No significant interval change. No evidence of focal consolidation. at 0825 Reported and signed by: Ravinder Lee MD CC: Leif Wilson DO; Ethan Cerda MD Technologist: Kosta Romero (RT) Transcrpt Date/Tm/Trnsp: 06/20/2022 (08) t.SDR.RSS5 Orig Print D/T: S: 06/20/2022 (0828) [facility] NAME:CHARLES JUAREZ [address] [place] PHYS: [place] [address] : 1965 AGE: 56 SEX: M LOC: Z.I14 A PHONE #: [phone] EXAM DATE: 06/20/2022 STATUS: ADM IN FAX #: [phone] RADIOLOGY NO: PAGE 1 Signed ReportGLUCOSE BEDSIDE [id number] 08:17:00 Test Item Value Reference Range Interpretation Comments GLUCOSE BEDSIDE TESTING (test code = 93 MG/DL 60-99 N GLUBED) [id number] 06:44:00 Test Item Value Reference Range Interpretation Comments FIBRINOGEN (test code = FIB) 111 mg/dL 200-393 L Comments to Instructional Design Manager: lll-hrO-[id number] 06:44:00 Test Item Value Reference Range Interpretation [...] f standard radiological pr ocedures. Comments to Instructional Design Manager: add-onCBC W/O [id number] 06:15:00 Test Item Value Reference Range Interpretation [...] K/mm3 0.0-0.1 N code = NRBC#) DIFFERENTIAL [id number] 06:15:00 Test Item Value Reference Range Interpretation [...] OVALOCYTES (test code = FEW NONE OVAL) [id number] 05:12:00 Test Item Value Reference Range Interpretation Comments AMMONIA (test code = AMM) 60 mcMOL/L 9-30 H BASIC METABOLIC [id number] 05:12:00 Test Item Value Reference Range Interpretation [...] the recommended for surjit for GFRby the Nat nal Kidney Foundati on for Adults.The GFR will not calculate if th e sex is unknown or if thepatient's ag e is <18 years. CREATININE (test 1.20 MG/DL 0.66-1.25 N code = CREAT) CALCIUM (test code = 7.7 MG/DL 8.4-10.2 L CA) [id number] 05:12:00 Test Item Value Reference Range Interpretation Comments MAGNESIUM (test code = MAG) 1.9 MG/DL 1.6-2.3 N - XR ABDOMEN 1 [id number] 04:52:00 [facility] : 1965 Sex: M Patient Name: CHARLES JUAREZ Unit No: [id number] EXAMS: CPT CODE: [id number] XR ABDOMEN 1 V 00281 Abdomen, 1 Supine View Location Code M12 History: CONFIRM OG TUBE PLACEMENT Findings: The bowel gas pattern is not well-visualized. There is an NG tube [...] EderMA50 Orig Print D/T: S: 06/20/2022 (0456) [facility] NAME: CHARLES JUAREZ [address] [address] PHYS: [place] [address] : 1965 AGE: 56 SEX: M LOC: ZSadeI14 Cornel PHONE #: [phone] EXAM DATE: 06/20/2022 STATUS: ADM IN FAX #: [phone] RADIOLOGY NO: PAGE 1 Signed ReportLACTIC ACID 2022-06-20 01:14:00 Test Item Value Reference Range Interpretation Comments LACTIC ACID (test code = LACT) 1.8 MMOL/L 0.7-2.1 N LACTIC [id number] 21:14:00 Test Item Value Reference Range Interpretation Comments LACTIC ACID (test code = LACT) 2.1 MMOL/L 0.7-2.1 N "TO BE COLLECTED BY NURSE"NOTIFIED RN: MIRTA 06/19/22 AT 1827 BY Yoav Mathias [id number] 21:02:00 Test Item Value Reference Range Interpretation Comments RBC MORPHOLOGY REQUIRED (test code = RBCM) PLATELET ESTIMATE (test code = PLTEST) ADEQUATE PLATELET MORPHOLOGY (test code = NORMAL PLTMORPH) Comments to Instructional Design Manager: POST TRANSFUSION H/HRECOLLECTION NEEDED. NOTIFIED ABE FRIEDMAN 20:13HGB [id number] 21:02:00 Test Item Value Reference Range Interpretation Comments HEMOGLOBIN (test code = 5.9 G/DL 12.4-16.7 LL CALL ED TO NITA FRIEDMAN & HGB) READBACK ON AT 2052 BY Christen Garcia RMED BY MELI HOWARD DRAWN PER ABE FRIEDMAN HEMATOCRIT (test code = 17.2 % 35.9-49.5 LL CALL ED TO NITA FRIEDMAN & HCT) READBACK ON AT 2053 BY Jesica Garcia Comments to Instructional Design Manager: POST TRANSFUSION H/HRECOLLECTION NEEDED. NOTIFIED RN NITA FRIEDMAN 20:13- XR CHEST [id number] 17:01:00 [facility] : 1965 Sex: M Patient Name: CHARLES JUAREZ Unit No: [id number] EXAMS: CPT CODE: [id number] XR CHEST 1V 31618 LOCATION:Q15 HISTORY: 56-year-old male, status post PICC [...] Owens MD; Ethan Cerda MD Technologist: Chandan SANDERS Transcrpt Date/Tm/Trnsp: 06/19/2022 (170) t.SDR.RLA2 Orig Print D/T: S: 06/19/2022 (6954) [facility] NAME: CHARLES JUAREZ [address] [place] PHYS: [place] [address] : 1965 AGE: 56 SEX: M LOC: Z.I14 A PHONE #: [phone] EXAM DATE: 06/19/2022 STATUS: ADM IN FAX #: [phone] RADIOLOGY NO: PAGE 1 Signed Report DRUGS OF ABUSE SCREEN [id number] 16:26:00 Test Item Value Reference Range Interpretation [...] (test code = PHENCU) ng/mL BODY FLUID [id number] 16:00:00 Test Item Value Reference Range Interpretation Comments BODY FLUID < 1.0 G/DL Reference inter vals and other ALBUMIN (test method code = ALBF) performancespec ifications have not been establ ished for this test. Thetest r esult should be integrated into the clinical contextfor inte rpretation. Specimen comments: PERITONEALPERITONEAL FLD CELL CT/[id number] 16:00:00 Test Item Value Reference Range Interpretation Comments DILUENT CHECK FOR CELL CT CLEAR & pH NEUTRAL CLEAR,pH=7 (test code = DILUENT) PERITONEAL FLD COLOR (test RED COLORLESS code = COLPT) PERITONEAL FLD APPEARANCE CLOUDY CLEAR (test code = APPPT) PERITONEAL FLD WBC (test 163 #/MM3 code = WBCPT) PERITONEAL FLD RBC (test 48017 code = RBCPT) PERITONEAL FLD POLY (test 40 % code = POLYPT) PERITONEAL FLD LYMPHOCYTE 24 % 0-78 N (test code = LYMPHPT) PERITONEAL FLD MONOCYTE 35 % 0-71 N (test code = MONOPT) PERITONEAL FLD EOSINOPHIL 1 % (test code = EOSPT) Specimen comments: PERITONEALPERITONEAL FLD [id number] 16:00:00 Test Item Value Reference Range Interpretation Comments PERITONEAL FLD LDH (test code = 56 UNITS/L LDHPT) Specimen comments: PERITONEALPERITONEAL FLD [id number] 16:00:00 Test Item Value Reference Range Interpretation Comments PERITONEAL FLD AMYLASE (test < 30 UNITS/L code = AMYPT) Specimen comments: PERITONEALLACTIC [id number] 13:13:00 Test Item Value Reference Range Interpretation Comments LACTIC ACID (test code = LACT) 2.3 MMOL/L 0.7-2.1 H - PARACENTESIS W [id number] 12:41:00 [facility] : 1965 Sex: M Patient Name: CHARLES JUAREZ Unit No: [id number] EXAMS: CPT CODE: [id number] PARACENTESIS W IMAGE 80689 EXAMINATION: IMAGE-GUIDED PARACENTESIS. LOCATION: B2. HISTORY: Ascites. SEDATION: The patient did not require conscious sedation for the procedure. ANTIBIOTICS: None. Not indicated. CONTRAST: None. TECHNIQUE: The risks, benefits, and alternatives were discussed and informed consent was obtained. Priorto beginning the procedure, [place] Protocol was used to confirm the patient's identity and planned procedure. Sterile barriers including cap, mask, hand hygiene, sterile gloves, sterile drape and cutaneous antisepsis were used. The patient's abdomen was examined with ultrasound and a suitable pocket of ascitic fluid in the right lower quadrant [...] of ascitic fluid. IMPRESSION: Successful image-guided paracentesis. machine operator general: Zayda Nicholas PA-C. at 1241 Reported and signed by: Tala Welch MD [facility] NAME: CHARLES JUAREZ [address] [place] PHYS: Rosenda Melendez MD [address] [address] : AGE: 56 SEX: M LOC: Z.I14 A PHONE #: [phone] EXAM DATE: 06/19/2022 STATUS: ADM IN FAX #: [phone] RADIOLOGY NO: PAGE 1 Signed Report (CONTINUED) Patient Name: CHARLES JUAREZ Unit No: [id number] EXAMS: CPT CODE: [id number] PARACENTESIS W IMAGE [address] (Continued)CC: MD Rosenda Alaina; Papito Carolina MD Technologist: Dorothy Peoples RDMS(AB) Transcrpt Date/Tm/Trnsp: 06/19/2022 (1241) t.DONR.PR7 Orig Print D/T: S: 06/19/2022 (1244) [facility] NAME: CHARLES JUAREZ [address] [place] PHYS: Rosenda Melendez MD [address] [address] : 1965 AGE: 56 SEX: M LOC: Z.I14 A PHONE #: [phone] EXAM DATE: 06/19/2022 STATUS: ADM IN FAX #: [phone] RADIOLOGY NO: PAGE 2 Signed [id number] 10:49:00 Test Item Value Reference Range Interpretation Comments AMMONIA (test code = AMM) 20 mcMOL/L 9-30 N Comments to Instructional Design Manager: add on to blood in labCOMPREHENSIVE METABOLIC [...] the recommended for surjit for GFRby the [facility] for Adults.The GFR will not [...] UNITS/L 38-126 PHOSPHATASE (test code = ALKP) [id number] 09:55:00 Test Item Value Reference Range Interpretation Comments MAGNESIUM (test code = MAG) 2.2 MG/DL 1.6-2.3 N LACTIC [id number] 08:50:00 Test Item Value Reference Range Interpretation Comments LACTIC ACID (test code = LACT) 2.9 MMOL/L 0.7-2.1 H [id number] 07:27:00 Test Item Value Reference Range Interpretation Comments ALCOHOL (test code = ALC) < 10.0 MG/DL <10 LACTIC [id number] 07:15:00 Test Item Value Reference Range Interpretation Comments LACTIC ACID (test code = LACT) 3.2 MMOL/L 0.7-2.1 H CBC W/AUTO [id number] 05:30:00 Test Item Value Reference Range Interpretation Comments WHITE BLOOD CELL (test 4.8 K/MM3 3.8-9.8 N code = WBC) RED BLOOD CELL (test 2.17 M/MM3 3.95-5.67 L code = RBC) HEMOGLOBIN (test code 6.7 G/DL 12.4-16.7 LL CALLED TO NITA Jacobson = HGB) & READBACK ON 06/19/22 AT 023 6 BY Boris Naik HEMATOCRIT (test code 20.2 % 35.9-49.5 L [...] K/mm3 0.0-0.1 N code = NRBC#) DIFFERENTIAL [id number] 05:30:00 Test Item Value Reference Range Interpretation [...] SCHISTOCYTES (test code = ALEIDA) FEW NONE ARTERIAL BLOOD [id number] 05:19:00 Test Item Value Reference Range Interpretation [...] to and readback by Dr. Wilson by [id number] at 06/19/2022 5:17: 39 AMPCO2 > 200 [...] mated message] code = TEMPA) The system [employer] generated this result transmit jose manuel reference range : 37. The reference r dottie was not used to interpret this result as normal/abnormal . ABG SITE (test code = RR SITEA) ALLENS TEST (test Y CHECK code = ALLENS) FIO2 (test code = 35 % COHBGFFIO2) PROTHROMBIN [id number] 04:49:00 Test Item Value Reference Range Interpretation [...] myocar dial infarction. 2.0 - 3.0 3. Jack Frame Tender al prosthesis hear t valves, recurre nt systemic emboli sm. 3.0 - 4.5 Comments to Instructional Design Manager: add-on pleaseLACTIC [id number] 04:35:00 Test Item Value Reference Range Interpretation Comments LACTIC ACID (test 4.2 MMOL/L 0.7-2.1 HH CALLED TO MCKAYLA& code = LACT) READBACK ON AT 0435 BY Mary Alexandre X - XR CHEST [id number] 03:53:00 [facility] : 1965 Sex: M Patient Name: CHARLES JUAREZ Unit No: [id number] EXAMS: CPT CODE: [id number] XR CHEST 1V 20073 HISTORY: Intubation Location: C3 COMPARISON:04/27/2022 FINDINGS: Endotracheal [...] Technologist: Kosta Romero (RT) Transcrpt Date/Tm/Trnsp: 06/19/2022 (035) EderRXC2 Orig Print D/T: S: 06/19/2022 (0356) [facility] NAME: CHARLES JUAREZ [address] [address] PHYS: [place] [address] : 1965 AGE: 56 SEX: M LOC: Z.I14 A PHONE #: [phone] EXAM DATE: 06/19/2022 STATUS: ADM IN FAX #: [phone] RADIOLOGY NO: PAGE 1 Signed ReportCOMPREHENSIVE METABOLIC PANEL 2022-06-19 02:51:00 Test Item Value Reference Range Interpretation [...] the recommended for surjit for GFRby the [facility] for Adults.The GFR will not [...] H PHOSPHATASE (test code = ALKP) LACTIC [id number] 02:40:00 Test Item Value Reference Range Interpretation Comments LACTIC ACID (test 6.6 MMOL/L 0.7-2.1 HH CALLED TO HIEN.W& code = LACT) READBACK ON AT 0240 BY Mary Alexandre SARS-CoV-2 RNA Resp Ql LULU+[id number] 18:39:40 Test Item Value Reference Range Interpretation Comments Hospitalized? (test No code = 51798-0) ICU? (test code = No 31686-3) Symptomatic as defined No by CDC? (test code = 54227-7) Employed in No Healthcare? (test code = 49041-0) Resident in a Yes congregate care setting (including nursing homes, residential care for people with intellectual and developmental disabilities, psychiatric treatment facilities, group homes, board and care homes, homeless long-term, foster care or other): (test code = 43906-8) SARS-CoV-2 RNA Resp Ql NOT DETECTED Not Detected The 2 019 novel LULU+probe (test code = coron avirus 49074-5) (SARS-CoV-2) ta rget nucleic acids a re not detected. The BEST Li SARS-CoV-2/Influenza is a real-time RT-PCR based diagnostic test intended for the qualitative detection of SARS-CoV-2 viral RNA in a nasopharyngeal swab during acute phase of infection. This test was developed and its performance characteristics have been determined by the [facility]. This test has not been [...] testing.HHSHIV 1+2 Ab+HIV1 p24 Ag SerPl Ql [id number] 15:01:37 Test Item Value Reference Range Interpretation Comments HIV 1+2 Ab+HIV1 p24 Ag SerPl Ql IA NEGATIVE Negative (test code = 36490-1) HHSHCV RNA SerPl LULU+mlbns-qLrr1024-52-01 01:38:34 Test Item Value Reference Range Interpretation Comments HCV RNA SerPl LULU+probe-aCnc 4857161 IU/mL <=0 H (test code = 45885-6) This test utilizes FDA cleared BEST AmpliPrep/BEST TaqMan HCV test, v2.0 from [employer] which allows quantitation of viral loads between [...] of patients with HCV infection.HHSFLUABV+SARS-CoV-2+RSV Pnl Resp LULU+oufsu1402-93-88 03:21:08 Test Item Value Reference Range Interpretation Comments Symptomatic as defined No by CDC? (test code = 59179-8) Hospitalized? (test No code = 05729-4) ICU? (test code = No 28159-7) Employed in No Healthcare? (test code = 97437-7) Resident in a Unknown congregate care setting (including nursing homes, residential care for people with intellectual and developmental disabilities, psychiatric treatment facilities, group homes, board and care homes, homeless long-term, foster care or other): (test code = 21353-6) SARS-CoV-2 RNA Resp Ql NOT DETECTED Not Detected The 2 019 novel LULU+probe (test code = coron avirus 21405-9) (SARS-CoV-2) ta rget nucleic acids a re not detected. COMMENT: The [employer] GeneXpert Xpress SARS-CoV-2/Flu/RSV test is a rapid, multiplexed real-time RT-PCR test intended for the simultaneous qualitative detection and differentiation of SARS-CoV-2, influenza A, influenza B, and/or respiratory syncytial virus (RSV) viral RNA in a nasopharyngeal swab. Thistest was developed and its performance characteristics have been determined by the [facility]. This test has not been cleared [...] to perform high complexity clinical l aboratory testing.AGEQKFT-RmP-5 RNA Resp Ql LULU+oekjj5956-34-51 10:12:35 Test Item Value Reference Range Interpretation Comments Hospitalized? (test No code = 18616-3) ICU? (test code = No 21281-3) Symptomatic as defined No by CDC? (test code = 15352-3) Employed in No Healthcare? (test code = 15214-8) Resident in a No congregate care setting (including nursing homes, residential care for people with intellectual and developmental disabilities, psychiatric treatment facilities, group homes, board and care homes, homeless long-term, foster care or other): (test code = 18291-0) SARS-CoV-2 RNA Nph Ql NOT DETECTED Not Detected The novel LULU+probe (test code = coron avirus 33203-9) (SARS-CoV-2) ta rget nucleic acids a re not detected. COMMENT: The [employer] SARS-CoV-2 real-time RT-PCR based diagnostic test intended for the qualitative detection of SARS-CoV-2 viral RNA in a nasopharyngeal swab during acute phase of infection. This test was developed and its performance characteristics have been determined by the [facility]. This test has not been cleared or approved by the FDA. This testsystem has been authorized by the FDA under an Emergency Use Authorization (EUA). This test has beenvalidated in accordance with the FDA\\XW08352\\s Guidance document \\ZW4858W\\Policy for Coronavirus Disease-2019 Tests During the Public Health Emergency\\UJ0431P\\ (Revised July 2019) and is used for clinical purposes. It should not be regarded as investigational or for research\\IO2764W\\Detected\\GK6642O\\ results are indicative of the presence of the identified virus, but do not rule out bacterial infection or co-infection with other pathogens not detected by the test. Clinical correlation with patient his tory and other diagnostic information is necessary to determine patient infection status. \\CV6260A\\Not Detected\\XQ2864S\\ results do not preclude SARS-CoV-2 and should not be used as the sole basis for treatment or other patient management decisions. Negative results must be combined with clinical observations, patient history, and/or epidemiological information.This laboratory is certified under the Clinical Laboratory Improvement Amendments (CLIA) as qualified to perform high complexity clinical laboratory testing.[facility]- SP PARACENTESIS W [id number] 11:36:00 [facility])Name: CHARLES JUAREZ : 1965 Sex: M Name: CHARLES JUAREZ [facility] : 1965 Age/S: 56 / M [address] [facility] Unit #: [id number] Loc: [place] [address] Phys: Jen Martinez MD Acct: [id number] Dis Date: Status: ADM IN PHONE #: [phone] Exam Date: 04/27/2022 1006 FAX #: [phone] Reason: EXAMS: CPT CODE: [id number] SP PARACENTESIS W IMAGE 28764 Fluoro Time: DAP (Gy m2): Air Kerma (mGy): REASON FOR EXAM: Ascites EXAM ORDER DATE: 04/27/2022 9:30 AM Ordering: Jen Martinez MD Attending:Jen Martinez MD Location:[facility] PROCEDURE: Ultrasound guided paracentesis CPT code: 45289, 55095 FINDINGS: After informed consent was obtained, the patient was brought to special procedures. The abdomen was prepped and draped in the usual fashion, including washing hands with conventional soap and water or with alcohol-based hand rubs (ABHR), skin preparation, cap, mask, sterile gown, sterile glovesand sterile full body drape. Sterile ultrasound techniques were followed including sterile gel and sterile probe cover. Diagnostic ultrasound showed moderate ascites. Images of the ascites was submitted to PACS. Following the superficial and deep application of the local anesthetic, percutaneous entrywas made into the peritoneal cavity using a guiding system under direct ultrasound visualization. A guide wire was inserted and an 8 [place] drainage catheter was inserted in the abdominal cavity. 9 L of fluid obtained. The catheter was removed and hemostasis obtained. Samples were submitted for lab analysis. MEDICATIONS: None COMPLICATIONS: None. Blood loss: less than 5cc. IMPRESSION: 9 L of fluid removed from the abdomen. at 1136 Reported and signed by: Viral Peoples M.D. CC: Jen Martinez MD Technologist: Indra Baig Trnarb Date/Time: 04/27/2022 (1135) EderVTL Orig Print D/T: S: 04/27/2022 (6247) PAGE 1 Signed Report- CT ABD PELVIS [id number] 02:39:00 [facility] : 1965 Sex: M Name: CHARLES JUAREZ [facility] : 1965 Age/S: 56 / M [address] [facility] Unit #: [id number] Loc: [place] [address] Phys: Nathan Flores MD Acct: [id number] Dis Date: Status: REG ER PHONE #: [phone] Exam Date: 04/27/20220 FAX #: [phone] Reason: ABDOMINAL PAIN, DISTENSION EXAMS: CPT CODE: [id number] CT ABD PELVIS W/CONT 13653 CT abdomen and pelvis with IV contrast. [...] utilization of iterative reconstruction technique. Findings: Lungs bases:A moderate right effusion is seen Liver: Heterogeneous lobular appearance of the liver compatible with likely cirrhosis. Multiple calcifications within the right lobe the liver may reflect prior treatment, recommend correlation with history. 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 Multiple calcifications within the right lobe the liver may reflect prior treatment, recommend correlation with history. Adjacent heterogeneity is nonspecific and further evaluation MRI recommended Additional findingsas detailed above at 0239 Reported and signed by: Catherine Vázquez M.D. CC: Nathan Flores MD Technologist:Vanessa Forrest RT(R) CTDI: DLP: Trnscb Date/Time: 04/27/2022 (238) [email or web address] Orig Print D/T: S: 04/27/2022 (7109) PAGE 2 Signed ReportURINALYSIS [id number] 02:26:00 Test Item Value Reference Range Interpretation Comments UA COLOR (test code = YELLOW YELLOW COLU) UA APPEARANCE (test Cloudy CLEAR A IS THE S AMPLE code = APPU) FROM ER OR L&D? IF THE ANSWER I S NO,PLEASE DOCUMENT TWO RN SIGNATURES HERE - by [id number] 04/27/22211 UA GLUCOSE DIPSTICK NEGATIVE mg/dL NEGATIVE [...] A YEASTU) Urine Source? Clean CatchBASIC METABOLIC [id number] 02:19:00 Test Item Value Reference Range Interpretation [...] the recommended for surjit for GFRby the N ational Kidney Foundati on for Adults.The GFR will not calculate i f the sex is unknown or if thepatient's ag e is <18 years. CREATININE (test 0.80 mg/dL 0.7-1.3 N code = CREAT) BUN/CREATININE 23.8 10-20 H RATIO (test code = BUN/CREA) CALCIUM (test code 7.9 mg/dL 8.5-10.1 L = CA) HEPATIC FUNCTION [id number] 02:19:00 Test Item Value Reference Range Interpretation [...] range due ALKP) to change in reagent. [id number] 02:19:00 Test Item Value Reference Range Interpretation Comments LIPASE (test code = LIP) 74 U/L 12-57 H PROTHROMBIN [id number] 02:15:00 Test Item Value Reference Range Interpretation [...] (2.5-3.5) IS PATIENT ON ANTICOAGULANTS? NTHROMBOPLASTIN TIME [id number] 02:15:00 Test Item Value Reference Range Interpretation Comments THROMBOPLASTIN TIME PARTIAL 29.0 seconds 23.0-37.0 N (test code = PTT) IS PATIENT ON ANTICOAGULANTS? NCBC W/O [id number] 01:40:00 Test Item Value Reference Range Interpretation [...] N = MPV) - XR CHEST 1 [id number] 01:29:00 [facility])Name: CHARLES JUAREZ BARBARA : 1965 Sex: M FAX: Nathan Flores MD [place]: B St: REG Name: JOE JUAREZCONCEPCION JIMENEZ [facility] : 1965 Age/S: 56/M [address] Unit #: [id number] Loc: [place] [address] Phys: Nathan Flores MD Acct: [id number] Dis Date: Status: REG ER PHONE #: [phone] Exam Date: 04/27/2022 0110 FAX #: [phone] Reason: ABDOMINAL PAIN EXAMS: CPT CODE: [id number] XR CHEST 1 V 10544 EXAMINATION: - XR CHEST 1 V LOCATION: H61 INDICATION/CLINICAL HISTORY: ABDOMINAL PAIN COMPARISON: Chest x-ray 06/25/2014. TECHNIQUE: AP view of the chest. FINDINGS: LINES/DEVICE:None. CARDIOMEDIASTINAL SILHOUETTE: Cardiac silhouette is normal in size. LUNGS/PLEURA: There is atelectasis in the right lung base and small right pleural effusion. There is no pneumothorax. UPPER ABDOMEN: Unremarkable. BONE/SOFT TISSUE: No acute fractures demonstrated. IMPRESSION: Small right pleural effusion and right basilar atelectasis. at 0129 Reported and signed by: Hillary Dixon M.D. CC: Nathan Flores MD Technologist: Sweetie Worthy RT(R) Trnscrd Date/Time/By: 04/27/2022 (0129) : By: [email or web address] Orig Print D/T: S: 04/27/2022 (0133) PAGE 1 Signed ReportHCV RNA SerPl [id number] 04:55:18 Test Item Value Reference Range Interpretation Comments HCV RNA SerPl [id number] IU/mL See_Comment H [Automated me ssage] LULU+probe-aCnc The system [facility] (test code = generated this result 74860-2) transmitted ref erence range: <=0. The reference range was not used to interpr et this result as normal/abnormal . This test utilizes FDA cleared BEST AmpliPrep/BEST TaqMan HCV test, v2.0 from [employer] which allows quantitation of viral loads between [...] of patients with HCV infection.HHSHepatitis 1995 Pnl [id number] 14:13:24 Test Item Value Reference Range Interpretation Comments HCV Ab [facility] [place] (test code = POSITIVE Negative A 78842-2) HHS
[2022-07-03 09:03] LABS: Absolute Lymphocytes (CBC) 1.7 K/uL (0.7-4.9); Hematocrit 28.7 % (39.6-49.0); Lymphocytes % 13.9 % (15.3-44.8); MCV 91.4 fL (80-100); MPV 7.7 fL (7.6-11.3); RBC Red Blood Cell Count 3.14 M/uL (4.33-5.43)
[2022-07-03 09:08] LABS: Protime INR 1.51
[2022-07-03 09:31] LABS: Albumin 2.6 g/dL (3.4-5.0); Bilirubin Total 7.2 mg/dL (0.2-1.0); Potassium 5.4 mEq/L (3.5-5.1); Protein, Total 6.7 g/dL (6.4-8.2)
[2022-07-03 10:07] LABS: Anisocytosis 3+; Blood Morphology Comment NOTED (NOT SEEN); Burr Cells 2+; Platelet Estimate ADEQ; White Blood Cell Scan OK (OK)
--- NOTE | 2022-07-03 10:15 | RAD REPORT ---
EXAM DESCRIPTION: US - Paracentesis Proc Guidance - 07/03/2022 9:52 am CLINICAL HISTORY: Liver disease with ascites FINDINGS: The risks, benefits and alternatives to the procedure were explained to the patient and in formed consent obtained. The skin and subcutaneous tissues were anesthetized with Lidocaine. Under sonographic guidance an 8 F rench catheter was placed into the right lower quadrant. 2.4 centimeters reddish fluid removed. Paul nt reports that on the prior paracentesis the color of the ascites was red The patient experienced no immediate complication. IMPRESSION: Paracentesis
--- NOTE | 2022-07-03 12:34 | ER ---
Nurse's Notes [facility] Name: Jay Sanchez Age: 56 yrs Sex: Male : 1965 Arrival Date: 07/03/2022 Time: 08:06 Bed 5 Private MD: Diagnosis: Other cirrhosis of liver;Hyponatremia Presentation: 07/03 08:32 Chief complaint: Patient states: Pt reports he has a hx of ascites and had it drained ss in the ER before and believes he needs to have it drained again. Coronavirus screen: Client denies travel out of the [place] in the last 14 days. Ebola Screen: Patient denies exposure to infectious person. Patient denies travel to an Ebola-affected area in the 21 days before illness onset. Initial Sepsis Screen: Does the patient meet any 2 criteria? No. Patient's initial sepsis screen is negative. Does the patient have a suspected source of infection? No. Patient's initial sepsis screen is negative. Risk Assessment: Do you want to hurt yourself or someone else? Patient reports no desire to harm self or others. Onset of symptoms is unknown. 08:32 Method Of Arrival: Wheelchair ss 08:32 Acuity: FENG 3 ss Triage Assessment: 10:00 General: Appears in no apparent distress. uncomfortable, Behavior is calm, cooperative. db Pain: Complains of pain in abdomen. Respiratory: Reports shortness of breath. GI: Abdomen is round distended, noted to have ascites, Reports lower abdominal pain, upper abdominal pain. Historical: - Allergies: 08:34 No Known Allergies; ss - PMHx: 08:34 Cirrhosis of liver; renal failure; Stomach CA; Anemia; ss - PSHx: 08:34 Unknown abd surgery; ss - Immunization history:: Client reports receiving the 2nd dose of the Covid vaccine. - Social history:: Smoking status: Patient denies any tobacco usage or history of. Screenin:35 [facility] ED Fall Risk Assessment (Adult) History of falling in the last 3 months, ss including since admission No falls in past 3 months (0 pts). Abuse screen: Denies threats or abuse. Denies injuries from another. Nutritional screening: No deficits noted. Tuberculosis screening: Never had TB. Assessment: 09:10 Reassessment: Patient appears in no apparent distress at this time. Patient and/or db family updated on plan of care and expected duration. Pain level reassessed. Patient is alert, oriented x 3, equal unlabored respirations, skin warm/dry/pink. patient with ascites last paracentesis was 4 days ago. Pain: Complains of pain in abdomen. 09:13 Reassessment: patient to ultrasound. db 09:30 Reassessment: consent signed and on chart. ss 09:33 Reassessment: Dr. Carroll and KIMBERLY Joy notified of critical lab value Na 119. ss 11:59 Reassessment: Patient appears in no apparent distress at this time. Patient and/or ss family updated on plan of care and expected duration. Pain level reassessed. Patient is alert, oriented x 3, equal unlabored respirations, skin warm/dry/pink. patient is resting. family is at bedside. 12:15 Respiratory: Airway is patent. GI: Abdomen is round distended, noted to have ascites. ss 12:54 Reassessment: Report given to ABE Anand [facility]. db 13:30 Reassessment: Patient appears in no apparent distress at this time. Patient and/or db family updated on plan of care and expected duration. Pain level reassessed. Patient is alert, oriented x 3, equal unlabored respirations, skin warm/dry/pink. patient pending transfer. 14:05 Reassessment: Patient appears in no apparent distress at this time. Patient and/or db family updated on plan of care and expected duration. Pain level reassessed. Patient is alert, oriented x 3, equal unlabored respirations, skin warm/dry/pink. patient ambulatory to restroom in [facility]. 14:30 Reassessment: EMS here for patient. retail banking manager at patient bedside family asking for db POA and DNR information and paperwork. Vital Signs: 08:32 BP 107 / 63; Pulse 69; Resp 17; Temp 97.7(O); Pulse Ox 98% on R/A; Weight 70.31 kg; ss Height 5 ft. 10 in. ; Pain 10/10; 08:45 BP 105 / 65; Pulse 67; Resp 18; Pulse Ox 98% on R/A; ss 10:19 BP 103 / 78; Pulse 64; Resp 18; Pulse Ox 100% on R/A; ss 10:30 BP 115 / 59; Pulse 66; Resp 18; Pulse Ox 100% on R/A; ss 11:30 BP 117 / 69; Pulse 66; Resp 18; Pulse Ox 100% on R/A; ss 12:00 BP 117 / 69; Pulse 67; Resp 18; Pulse Ox 100% on R/A; ss 12:30 BP 110 / 70; Pulse 65; Resp 18; Pulse Ox 100% on R/A; db 13:30 BP 119 / 63; Pulse 68; Resp 18; Pulse Ox 100% on R/A; db 14:00 BP 115 / 65; Pulse 64; Resp 18; Pulse Ox 96% on R/A; db 08:32 Body Mass Index 22.24 (70.31 kg, 177.8 cm) ss 08:32 Pain Scale: Adult ss ED Course: 08:07 Patient arrived in ED. am2 08:14 Benita Lundberg FNP-C is PHCP. kb 08:14 Beni Carroll MD is Attending Physician. kb 08:34 Triage completed. ss 08:34 Arm band placed on right wrist. ss 08:39 Taryn Braden, ABE is Primary Nurse. db 08:55 Inserted saline lock: 20 gauge in right antecubital area, using aseptic technique. db ,using aseptic technique. by AMAIRANI Blood collected. 09:13 faxed release of information to [facility]. bd 09:35 Patient has correct armband on for positive identification. ss 09:54 Paracentesis Proc Guidance In Process Unspecified. EDMS 10:31 initiated transfer to [facility]. bd 11:38 pt denied at [facility] and [facility] due to no beds. bd 11:44 initiated transfer to [facility]. bd 14:30 Client placed on continuous cardiac and pulse oximetry monitoring. NIBP monitoring db applied. Pillow given. 14:30 No provider procedures requiring assistance completed. Patient transferred, IV remains db in place. Administered Medications: No medications were administered Medication: 14:30 VIS not applicable for this client. db Outcome: 12:33 ER care complete, transfer ordered by . kb 14:15 Transferred by ground EMS to [facility], Transfer form completed. db 15:20 Condition: stable db 15:20 Instructed on the need for transfer. 15:22 Patient left the ED. db Signatures: Dispatcher [employer] EDMS Benita Lundberg FNP-C RANGE AID-Ckb Yaneth Bateman Shelby, RN RN ss Татьяна Landers am Taryn Braden, RN RN db Corrections: (The following items were deleted from the chart) 12:16 09:10 Reassessment: Patient appears in no apparent distress at this time. Patient ss and/or family updated on plan of care and expected duration. Pain level reassessed. Patient is alert, oriented x 3, equal unlabored respirations, skin warm/dry/pink. patient with ascites last paracentesis was 4 days ago db 15:20 14:15 Transferred by ground EMS db db
--- NOTE | 2022-07-03 12:34 | EDPHYS ---
Physician Documentation [facility] Name: Jay Sanchez Age: 56 yrs Sex: Male : 1965 Arrival Date: 07/03/2022 Time: 08:06 Bed 5 Private MD: ED Physician Beni Carroll HPI: 07/03 08:55 This 56 yrs old Male presents to ER via Wheelchair with complaints of ascites f/u. kb 08:55 Pt reports he normally gets a paracentesis done every 4 days at [facility]. States he has a kb history of cirrhosis and stomach cancer. Reports he recently got out of [facility] so does not have a GI, oncologist or PCP. Came yesterday to have paracentesis completed in the ED and provider set up an appointment for him to come back at 8 AM this morning for paracentesis. Patient has no pain, shortness of breath. . Onset: The symptoms/episode began/occurred yesterday. Severity of symptoms: At their worst the symptoms were mild moderate in the emergency department the symptoms are unchanged. The patient has experienced similar episodes in the past. The patient has been recently seen by a physician:. 09:02 Patient states he was admitted to [facility] on 06/19/2022 and discharged on 06/29/2022. Sister reports patient was discharged and supposed to go on hospice, but she could not make the drive to [place] every day so she brought him down here. States she is trying to find placement for him currently.. Historical: - Allergies: 08:34 No Known Allergies; ss - PMHx: 08:34 Cirrhosis of liver; renal failure; Stomach CA; Anemia; ss - PSHx: 08:34 Unknown abd surgery; ss - Immunization history:: Client reports receiving the 2nd dose of the Covid vaccine. - Social history:: Smoking status: Patient denies any tobacco usage or history of. ROS: 09:01 Constitutional: Negative for fever, chills, and weight loss. kb 09:01 Abdomen/GI: Positive for ascites. 09:01 All other systems are negative. Exam: 09:03 Constitutional: This is a well developed, well nourished patient who is awake, alert, kb and in no acute distress. Head/Face: Normocephalic, atraumatic. ENT: Moist Mucous membranes Cardiovascular: Regular rate and rhythm with a normal S1 and S2. No gallops, murmurs, or rubs. No pulse deficits. Respiratory: Respirations even and unlabored. No increased work of breathing. Talking in full sentences MS/ Extremity: Pulses equal, no cyanosis. Neurovascular intact. Full, normal range of motion. Neuro: Awake and alert, GCS 15, oriented to person, place, time, and situation. Moves all extremities. Normal gait. 09:03 Abdomen/GI: Inspection: ascites, soft and nontender. , Bowel sounds: normal, Palpation: abdomen is soft and non-tender. 09:03 Skin: Appearance: Color: jaundiced. Vital Signs: 08:32 BP 107 / 63; Pulse 69; Resp 17; Temp 97.7(O); Pulse Ox 98% on R/A; Weight 70.31 kg; ss Height 5 ft. 10 in. ; Pain 10/10; 08:45 BP 105 / 65; Pulse 67; Resp 18; Pulse Ox 98% on R/A; ss 10:19 BP 103 / 78; Pulse 64; Resp 18; Pulse Ox 100% on R/A; ss 10:30 BP 115 / 59; Pulse 66; Resp 18; Pulse Ox 100% on R/A; ss 11:30 BP 117 / 69; Pulse 66; Resp 18; Pulse Ox 100% on R/A; ss 12:00 BP 117 / 69; Pulse 67; Resp 18; Pulse Ox 100% on R/A; ss 12:30 BP 110 / 70; Pulse 65; Resp 18; Pulse Ox 100% on R/A; db 13:30 BP 119 / 63; Pulse 68; Resp 18; Pulse Ox 100% on R/A; db 14:00 BP 115 / 65; Pulse 64; Resp 18; Pulse Ox 96% on R/A; db 08:32 Body Mass Index 22.24 (70.31 kg, 177.8 cm) ss 08:32 Pain Scale: Adult ss MDM: 08:14 Patient medically screened. kb 09:04 Differential Diagnosis hepatic failure, ascites, cirrhosis. Data reviewed: vital signs, kb nurses notes. 10:28 Consideration of Admission/Observation pt will be transferred due to lack of hepatology kb at this facility. Pt does not want to be transferred to [place], requests [facility]. 10:54 ED course: María from [facility] transfer center called back. Still waiting to find out if there is capacity for the patient. She will call back. 11:14 Management of patient was discussed with the following: Dr Cheek, GI at [facility]. 11:14 Care significantly affected by the following chronic conditions: Liver Disease, stomach kb CA. Counseling: I had a detailed discussion with the patient and/or guardian regarding: the historical points, exam findings, and any diagnostic results supporting the discharge/admit diagnosis, lab results, radiology results, the need to transfer to another facility, [facility] does not immediately have the required specialist. 11:34 ED course: Discussed case with Dr Adames , ICU attending at [facility]. Does not kb believe pt needs ICU at this time. Recommends tele. [facility] on saturation for tele and [facility] will not accept pt to tele with sodium less than 120. 12:19 ED course: Discussed case with Dr Chopra, hospitalist at [facility] and Dr West, kb coin dealer at [facility]. Dr Chopra denies transfer to Tele due to sodium of 119, requests ICU. Dr West accepts pt for consult. 12:32 ED course: Discussed case with Dr Castaneda, sorting livestock worker at [facility]. Accepts pt for kb transfer. 05 08:14 Order name: CBC with Diff; Complete Time: 10:14 kb 07/03 08:14 Order name: CMP; Complete Time: 09:37 kb 07/03 08:14 Order name: Lipase; Complete Time: 09:37 kb 07/03 08:14 Order name: Protime (+inr); Complete Time: 09:09 kb 07/03 08:14 Order name: Ptt, Activated; Complete Time: 09:09 kb 07/03 09:06 Order name: CBC Smear Scan; Complete Time: 10:14 EDMS 07/03 08:29 Order name: Paracentesis Proc Guidance; Complete Time: 10:36 EDMS 07/03 10:01 Order name: EKG; Complete Time: 10:02 kb 07/03 08:14 Order name: IV Saline Lock; Complete Time: 12:00 kb 07/03 08:14 Order name: Labs collected and sent; Complete Time: 12:00 kb 07/03 08:24 Order name: Surgical Consent; Complete Time: 11:59 kb 07/03 10:01 Order name: EKG - Nurse/Tech; Complete Time: 11:59 kb Administered Medications: No medications were administered Disposition: 15:35 Co-signature as Attending Physician, Beni Carroll MD I reviewed the patient's care rn provided by the Advanced Practice Provider and agree with the diagnosis and treatment plan. Disposition Summary: 07/03/22 12:33 Transfer Ordered Transfer Location: [facility] kb Reason: Higher level of care kb Condition: Stable kb Problem: new kb Symptoms: are unchanged kb Accepting Physician: Dr Castaneda(07/03/22 15:22) db Diagnosis - Other cirrhosis of liver kb - Hyponatremia kb Forms: - Medication Reconciliation Form kb - SBAR form kb Signatures: Dispatcher [employer] EDMS Benita Lundberg, RUG TOUCH UP PAINTER-C RUG TOUCH UP PAINTER-Beni Gan MD MD rn Smirch, Shelby, RN RN ss Taryn Braden RN RN db Corrections: (The following items were deleted from the chart) 15: 12:33 Dr Castaneda kb db
[2022-07-03 15:46] VITALS: TEMP 97.7
[2022-07-03 16:00] VITALS: BP 115/65; O2SAT 96
--- NOTE | 2022-07-04 14:09 | EKG ---
Test Date: 2022-07-03 Test Time: 10:58:37 [facility]: [facility] MEASUREMENT RESULTS: Intervals: Rate: 67 MD: 174 QRSD: 76 QT: 400 QTc: 422 [place]: P: 23 MD: 174 QRS: 33 T: 55 INTERPRETIVE STATEMENTS: Normal sinus rhythm ST abnormality, possible digitalis effect Abnormal ECG No previous ECG available for comparison Electronically Signed On 07-04-22 14:07:30 CDT by Bashir Segovia
== END 2022-07-03 15:22 | disposition short-term general hospital (02) ==
LOC: ER 08:06
DX: K74.69 Other cirrhosis of liver (principal); E87.1 Hypo-osmolality and hyponatremia
CPT/HCPCS: 36415; 49083; 80053; 83690; 85025; 85610; 85730; 93005